=== PATIENT | female | born 1935 ===

== ENCOUNTER 2018-05-13 23:13 | Inpatient (IN) | payer MEDICARE, OTHER ==
[2018-05-13 23:14] VITALS: BMI 23.4
[2018-05-14] MEDS ORDERED: Cefepime 2 GM in Sodium Chloride 0.9% 100 ML IVPB STA (00:01)
[2018-05-14 00:19] LABS: VENOUS BLOOD GAS BASE EXCESS 2.8 mmol/L (0.0-2.0); VENOUS BLOOD GAS PCO2 47 mmHg (40-60); VENOUS BLOOD GAS PO2 34 mm/Hg (30-55); VENOUS BLOOD PH 7.39 (7.32-7.43)
[2018-05-14] MEDS ORDERED: Vancomycin 1 g Inj ONE (00:47)
--- NOTE | 2018-05-14 01:11 | ED PDOC ---
HPI: Altered Mental Status Time Seen by Provider: 05/13/18 23:26 Chief Complaint (Nursing): Altered Mental Status Chief Complaint (Provider): Altered Mental Status History Per: EMS, Other ([facility] Nurses) History/Exam Limitations: Clinical Condition Onset/Duration Of Symptoms: Days (x1) Current Symptoms Are (Timing): Still Present Additional Complaint(s): 83 y/o female with a past medical history of end stage renal disease on dialysis , dementia, hyperlipidemia, HTN, and CVA, presenting to ER from [facility] for evaluation of altered mental status and left arm swelling. Per EMS, the nurses at [facility] report that shes normally not oriented, but is usually more interactive than she was today. They also noticed swelling of the patients left arm and neck swelling. Patient cannot provide any history due to dementia. PMD: Dr. Mejia Past Medical History Reviewed: Historical Data, Nursing Documentation, Vital Signs Vital Signs: Last Vital Signs Temp 100.2 F H 05/13/18 23:17 Pulse 127 H 05/13/18 23:58 Resp 26 H 05/13/18 23:58 BP 132/102 H 05/13/18 23:58 Pulse Ox 93 L 05/13/18 23:58 - Medical History PMH: CAD, Dementia, HTN, Hypercholesterolemia, End Stage Renal Disease, Chronic Kidney Disease, TIA Denies: Kidney Stones - Surgical History Surgical History: Cholecystectomy, Pacemaker - Family History Family History: States: Unknown Family Hx - Home Medications Home Medications: Ambulatory Orders Medication Instructions Recorded Aspirin 81 mg PO DAILY 06/28/14 Cinacalcet Hydrochloride [Sensipar] 60 mg PO DAILY 06/28/14 Omeprazole 20 mg PO DAILY 06/28/14 Pravastatin Sodium [Pravastatin] 40 mg PO HS 06/28/14 Sevelamer Carbonate [Renvela] 800 mg PO TID 06/28/14 amLODIPine [Norvasc] 10 mg PO DAILY #0 tab 01/29/15 Aspirin [Ecotrin] 81 mg PO DAILY #0 tabec 07/22/15 Calcium Acetate [Phoslo] 667 mg PO TIDCC #0 tab 07/22/15 Carvedilol [Coreg] 25 mg PO Q12H #0 tab 07/22/15 Clopidogrel [Plavix] 75 mg PO DAILY #0 tab 07/22/15 Donepezil [Aricept] 5 mg PO HS #0 tab 07/22/15 Famotidine [Pepcid] 20 mg PO DAILY #0 tab 07/22/15 Isosorbide Mononitrate [Imdur] 60 mg PO DAILY #0 tab 07/22/15 Losartan [Cozaar] 100 mg PO DAILY #0 tab 07/22/15 Polyethylene Glycol/Polyvinyl 1 ml OU Q8H PRN #0 bottle 07/22/15 [Artificial Tears] Rosuvastatin Calcium [Crestor] 10 mg PO HS #0 tab 07/22/15 amLODIPine [Norvasc] 10 mg PO DAILY #0 tab 07/22/15 cloNIDine [Catapres] 0.2 mg PO Q8H #0 tab 07/22/15 hydrALAZINE [Apresoline] 50 mg PO Q6H #0 tab 07/22/15 - Allergies Allergies/Adverse Reactions: Allergies Allergy/AdvReac Type Severity Reaction Status Date / Time moxifloxacin Allergy SHORTNESS Verified 05/14/18 00:01 OF BREATH Penicillins Allergy RASH Verified 05/14/18 00:01 Review of Systems Review Of Systems: ROS cannot be obtained secondary to pt's inabilty to answer questions. Skin: Positive for: Other (neck and left arm swelling) Neurological: Positive for: Altered Mental Status Physical Exam - Reviewed Nursing Documentation Reviewed: Yes Vital Signs Reviewed: Yes - Physical Exam Appears: Positive for: No Acute Distress Head Exam: Positive for: ATRAUMATIC, NORMAL INSPECTION, NORMOCEPHALIC Skin: Positive for: Normal Color, Warm, Dry Neck: Negative for: Normal (substantial LAD anteriorly) Cardiovascular/Chest: Positive for: Tachycardia Respiratory: Positive for: Normal Breath Sounds. Negative for: Respiratory Distress Gastrointestinal/Abdominal: Positive for: Normal Exam, Soft. Negative for: Tenderness Back: Positive for: Normal Inspection. Negative for: L CVA Tenderness, R CVA Tenderness, Vertebral Tenderness Extremity: Positive for: Other (6 cm x 4 cm indurated swelling to left arm distal to antecubital fossa, no significant erythema) Neurologic/Psych: Negative for: Alert (patient mumbling incomprehensively), Oriented - Laboratory Results Result Diagrams: 05/14/18 01:12 05/14/18 01:12 - ECG O2 Sat by Pulse Oximetry: 93 - Progress Condition: Re-examined, Worse - Critical Care Total Time (In Min): 60 Documented Critical Care: Time excludes all time spent performint seperately billable procedures Medical Decision Making Medical Decision Making: A/P: 83 y/o female with a history of end stage renal disease on dialysis, dementia, hyperlipidemia, HTN, and CVA presenting with altered mental status and left arm swelling -Patient is febrile and tachycardic, current source unclear -Arm does not appear cellultic, probably not source of infection -Will initiate sepsis workup, however patient cannot receive fluids due to dialysis status and evidence of fluid overload on CXR -Broad spectrum antibiotics will be given -Patient will be admitted to hospitalist as patient is a patient of Dr. Mejia -IV placed by MD in R EJ due to lack of peripheral access 130AM -Patient started developing respiratory distress, spitting frothy sputum, increasingly tachycardic. Patient placed on BIPAP with good response, ativan given for worsening agitation and attempting to pull out IV lines and O2. Lasix held as patient does not urinate as per shelter. 300AM -Patient significantly improved, HR 78, resting comfortably, no respiratory distress seen. Dr. Sahu aware. ----- Scribe Attestation: Documented by Shade Betts, acting as a scribe for Joss Esposito MD. Provider Scribe Attestation: All medical record entries made by the Scribe were at my direction and personally dictated by me. I have reviewed the chart and agree that the record accurately reflects my personal performance of the history, physical exam, medical decision making, and the department course for this patient. I have also personally directed, reviewed, and agree with the discharge instructions and disposition. Disposition - Clinical Impression Clinical Impression: ESRD (end stage renal disease) on dialysis, Fever, Pneumonia, Sepsis - Patient ED Disposition Is Patient to be Admitted: Yes - Disposition Disposition Time: 03:00 Condition: SERIOUS
[2018-05-14 01:33] LABS: BASO % 0.7 % (0.0-2.0); EOS % 0.1 % (0.0-4.0); HEMOGLOBIN 11.2 g/dL (12.0-16.0); LYMPH # 0.7 K/uL (1.0-4.3); LYMPH % 10.9 % (20.0-40.0); MEAN CELL VOLUME 97.1 fl (81.0-99.0); MEAN CORPUSCULAR HEMOGLOBIN 31.3 pg (27.0-31.0); MEAN CORPUSCULAR HGB CONC 32.3 g/dL (33.0-37.0); MONO # 0.7 K/uL (0.0-0.8); MONO % 10.7 % (0.0-10.0); NEUT % 77.6 % (50.0-75.0); NRBC % 0.1 % (0.0-0.0); RBC 3.57 Mil/uL (3.80-5.20); RED CELL DISTRIBUTION WIDTH 18.1 % (11.5-14.5); WHITE BLOOD COUNT 6.5 K/uL (4.8-10.8)
[2018-05-14 01:38] LABS: ALB/GLOB RATIO 1.1 (1.0-2.1); ALBUMIN 3.7 g/dL (3.5-5.0); CALCIUM 8.9 mg/dL (8.4-10.2)
[2018-05-14 01:56] LABS: INR 1.2 (0.9-1.2); PARTIAL THROMBOPLASTIN TIME 31.1 Seconds (25.6-37.1); PROTHROMBIN TIME 12.8 Seconds (9.8-13.1)
[2018-05-14 02:19] LABS: ABG ALLEN TEST YES; ARTERIAL BLOOD GAS HCO3 27.1 mmol/L (21-28); ARTERIAL BLOOD GAS O2 SAT 99.5 % (95-98); ARTERIAL BLOOD GAS PCO2 44 mm/Hg (35-45); ARTERIAL BLOOD GAS PH 7.41 (7.35-7.45); ARTERIAL BLOOD GAS PO2 465 mm/Hg (80-100); ARTERIAL BLOOD GAS TCO2 29.3 mmol/L (22-28)
--- NOTE | 2018-05-14 03:24 | CP.PCM.HP ---
History of Present Illness - History of Present Illness History of Present Illness: PMD: Dr. Mejia Chief Complaint: AMS The Patient was seen and examined in the ED HPI: The hx is obtained from the [facility] notes and after review of the medical records. She is an 83 years old female residing at the [facility] with hx of HTN, CAD, Dementia and ESRD who suffered a one day change in mental status more demented than normal, with poor appetite along with swelling, of the left upper extremity. She also has discharge from the left eye. PMH: CAD, Dementia, HTN, HLD; End Stage Renal Disease on HD MWF; TIA, Falls, hemorrhoides PSH: Cholecystectomy, Pacemaker, AV fistula right forearm SH: Unknown if ever smoked; No illegal drug use; No Alcohol; reside at the [facility] FH: States: Unknown Family Hx Allergies: PCN causes rash; Moxifloxacin causes SOB Medication: Reviewed Present on Admission - Present on Admission Any Indicators Present on Admission: No History of DVT/PE: No History of Uncontrolled Diabetes: No Urinary Catheter: No Decubitus Ulcer Present: No Review of Systems - Review of Systems Systems not reviewed;Unavailable: Dementia, Altered Mental Status Review of Systems: Review of system limited because of the AMS Past Patient History - Past Medical History & Family History Past Medical History?: Yes - Past Social History Smoking Status: Unknown If Ever Smoked Chewing Tobacco Use: No Cigar Use: No Alcohol: None Drugs: Denies Home Situation {Lives}: Long Term - CARDIAC Hx Hypercholesterolemia: Yes Hx Hypertension: Yes Hx Pacemaker: Yes - PULMONARY Hx Respiratory Disorders: No - NEUROLOGICAL Hx Dementia: Yes Hx Transient Ischemic Attacks (TIA): Yes - HEENT Hx HEENT Problems: No - RENAL Hx Chronic Kidney Disease: Yes Hx Kidney Stones: No - ENDOCRINE/METABOLIC Hx Endocrine Disorders: No - HEMATOLOGICAL/ONCOLOGICAL Hx Blood Disorders: No - INTEGUMENTARY Hx Dermatological Problems: No - MUSCULOSKELETAL/RHEUMATOLOGICAL Hx Musculoskeletal Disorders: Yes Hx Falls: Yes Hx Unsteady Gait: Yes - GASTROINTESTINAL Hx Gastrointestinal Disorders: Yes Hx Hemorrhoids: Yes - GENITOURINARY/GYNECOLOGICAL Hx Genitourinary Disorders: No - PSYCHIATRIC Hx Substance Use: No - SURGICAL HISTORY Hx Cholecystectomy: Yes Other/Comment: AV fistula right arm/ PPM - ANESTHESIA Hx Anesthesia: Yes Hx Anesthesia Reactions: No Meds Allergies/Adverse Reactions: Allergies Allergy/AdvReac Type Severity Reaction Status Date / Time moxifloxacin Allergy SHORTNESS Verified 05/14/18 00:01 OF BREATH Penicillins Allergy RASH Verified 05/14/18 00:01 Physical Exam - Constitutional Appears: No Acute Distress, Agitated Additional comments: Resisting the Examination - Head Exam Head Exam: ATRAUMATIC, NORMOCEPHALIC - Eye Exam Additional comments: Left eye with yellow secretions. Pupils equal and reacting to light. - ENT Exam ENT Exam: Mucous Membranes Dry, Normal Exam - Neck Exam Neck exam: Positive for: Full Rom. Negative for: Tenderness - Respiratory Exam Additional comments: Decreased breath sounds at both lung bases, no rales nor rhonchi. - Cardiovascular Exam Cardiovascular Exam: REGULAR RHYTHM, RRR, +S1, +S2 - GI/Abdominal Exam Additional comments: Full, Soft, non tender,+ve bowel sounds - Rectal Exam Rectal Exam: Deferred - Extremities Exam Additional comments: 1+ edema at both lower extremities R>L; Left upper extremity swollen with area at proximal left forearm swollen more than other regions(4X5cm) - Back Exam Back exam: NORMAL INSPECTION. absent: CVA tenderness (L), CVA tenderness (R) - Neurological Exam Additional comments: Demented, No facial droop, moving the upper extremities. - Psychiatric Exam Additional comments: Initially mild agitation andat this exam she is lightly sedated with Ativan. - Skin Skin Exam: Dry, Normal Color, Warm Results - Vital Signs Recent Vital Signs: Last Vital Signs Temp 100.2 F H 05/13/18 23:17 Pulse 130 H 05/14/18 01:45 Resp 14 05/14/18 01:41 BP 142/94 H 05/14/18 01:41 Pulse Ox 93 L 05/14/18 02:30 - Labs Result Diagrams: 05/14/18 01:12 05/14/18 01:12 Labs: Laboratory Results - last 24 hr 05/14/18 05/14/18 05/14/18 00:14 01:12 01:12 WBC 6.5 RBC 3.57 L Hgb 11.2 L Hct 34.7 MCV 97.1 MCH 31.3 H MCHC 32.3 L RDW 18.1 H Plt Count 172 MPV 9.0 Neut % (Auto) 77.6 H Lymph % (Auto) 10.9 L Taney % (Auto) 10.7 H Eos % (Auto) 0.1 Baso % (Auto) 0.7 Neut # (Auto) 5.0 Lymph # (Auto) 0.7 L Taney # (Auto) 0.7 Eos # (Auto) 0.0 Baso # (Auto) 0.0 PT INR APTT pCO2 pO2 34 HCO3 ABG pH ABG Total CO2 ABG O2 Saturation ABG Base Excess Willie Test ABG Potassium VBG pH 7.39 VBG pCO2 47 VBG HCO3 26.2 VBG Total CO2 29.9 H VBG O2 Sat (Calc) 65.9 H VBG Base Excess 2.8 H VBG Potassium 3.6 A-a O2 Difference Sodium 133.0 132 Chloride 98.0 93 L Glucose 131 H Lactate 0.9 Mechanical Rate FiO2 21.0 Inspiratory BiPAP Expiratory BiPAP Potassium 4.4 Carbon Dioxide 24 Anion Gap 19 BUN 40 H Creatinine 5.4 H Est GFR ( Amer) 9 Est GFR (Non-Af Amer) 8 Random Glucose 122 H Calcium 8.9 Phosphorus 2.4 L Magnesium 2.3 Total Bilirubin 0.9 AST 45 H ALT 32 Alkaline Phosphatase 153 H Total Protein 6.9 Albumin 3.7 Globulin 3.3 Albumin/Globulin Ratio 1.1 Arterial Blood Potassium Venous Blood Potassium 3.6 05/14/18 05/14/18 01:12 02:15 WBC RBC Hgb Hct MCV MCH MCHC RDW Plt Count MPV Neut % (Auto) Lymph % (Auto) Taney % (Auto) Eos % (Auto) Baso % (Auto) Neut # (Auto) Lymph # (Auto) Taney # (Auto) Eos # (Auto) Baso # (Auto) PT 12.8 INR 1.2 APTT 31.1 pCO2 44 pO2 465 H HCO3 27.1 ABG pH 7.41 ABG Total CO2 29.3 H ABG O2 Saturation 99.5 H ABG Base Excess 2.7 Willie Test Yes ABG Potassium 3.7 VBG pH VBG pCO2 VBG HCO3 VBG Total CO2 VBG O2 Sat (Calc) VBG Base Excess VBG Potassium A-a O2 Difference 193.0 Sodium 129.0 L Chloride 96.0 L Glucose 133 H Lactate 0.7 Mechanical Rate 14 FiO2 100.0 Inspiratory BiPAP 12 Expiratory BiPAP 6 Potassium Carbon Dioxide Anion Gap BUN Creatinine Est GFR ( Amer) Est GFR (Non-Af Amer) Random Glucose Calcium Phosphorus Magnesium Total Bilirubin AST ALT Alkaline Phosphatase Total Protein Albumin Globulin Albumin/Globulin Ratio Arterial Blood Potassium 3.7 Venous Blood Potassium - Impressions Impression: Low voltage A Fib with RBBB 96/min - Imaging and Cardiology Chest x-ray Status: Image reviewed by me Additional comment: Bibasal Pleural effusion R>L Right basal interstitial infiltrate Assessment & Plan - Assessment and Plan (Free Text) Assessment: #. AMS #. Bilateral Pleural Effusion #. Pnum[place] #. Left upper extremity swelling #. Anasarca #. ESRD On HD #. A Fib Plan: 83 years old female residing at the [facility] with hx of HTN, CAD, Dementia and ESRD who suffered a one day change in mental status more demented than normal, with poor appetite along with swelling, of the left upper extremity. She also has discharge from the left eye. #. AMS due to Metabolic encephalopathy - Hemodialysis - Treat infections - Consult Dr Workman ID #. Bilateral Pleural Effusion secondary to volume overload - Hemodialysis - Consider Right Thoracentesis if Decompensation #. r/o Pneumonia at the right lung base - consult Dr Cordero Pulmonary - Procalcitonin - Vancomycin/Cefepime #. Left upper extremity swelling - Duplex US of left upper extremity #. Anasarca due to the renal failure - Hemodialysis #. ESRD On HD - consult Dr Palma [employer] for Hemodialysis #. A Fib with RVR - Consult Dr Delgado cardiology - Cardiac monitoring #. DVT with subQ heparin #. Code Status: Full - Date & Time Date: 05/14/18 Time: 03:24
[2018-05-14 05:46] LABS: VENOUS BLOOD GAS BASE EXCESS 3.7 mmol/L (0.0-2.0); VENOUS BLOOD GAS PCO2 49 mmHg (40-60); VENOUS BLOOD GAS PO2 46 mm/Hg (30-55); VENOUS BLOOD PH 7.39 (7.32-7.43)
[2018-05-14] MEDS ORDERED: Artificial Tears Opht Soln OU PRN (06:05)
[2018-05-14 07:09] LABS: BASO % 0.7 % (0.0-2.0); EOS % 0.4 % (0.0-4.0); LYMPH # 0.8 K/uL (1.0-4.3); LYMPH % 18.4 % (20.0-40.0); MEAN CELL VOLUME 97.8 fl (81.0-99.0); MEAN CORPUSCULAR HEMOGLOBIN 31.2 pg (27.0-31.0); MEAN CORPUSCULAR HGB CONC 31.9 g/dL (33.0-37.0); MEAN PLATELET VOLUME 8.4 fl (7.2-11.7); MONO # 0.6 K/uL (0.0-0.8); MONO % 13.5 % (0.0-10.0); NEUT # 2.9 K/uL (1.8-7.0); RBC 3.53 Mil/uL (3.80-5.20); RED CELL DISTRIBUTION WIDTH 17.8 % (11.5-14.5); WHITE BLOOD COUNT 4.3 K/uL (4.8-10.8)
[2018-05-14] MEDS ORDERED: Dextrose 5%/0.9% NS 1,000 ML IV SCH (07:15)
[2018-05-14 07:24] LABS: TROPONIN I 0.025 ng/mL (0.00-0.120)
[2018-05-14 07:28] LABS: ALBUMIN 2.8 g/dL (3.5-5.0); CALCIUM 8.4 mg/dL (8.4-10.2)
--- NOTE | 2018-05-14 09:19 | CP.PCM.CON ---
History of Present Illness - History of Present Illness History of Present Illness: This 83-year-old female a long-term resident of a detention was brought to the emergency room when she was found to be more confused than usual. She has a long history of dementia. She has been on chronic hemodialysis for approximately 9 years. She is a long- standing hypertensive and does not have a history of diabetes mellitus or prior myocardial infarction. She is not a smoker and has had number of transient ischemic episodes. She has required a permanent pacemaker implant more than 4 years back. This history was obtained from her son. Physical examination shows an elderly female who is quite disoriented and does not appear to be aware of her surroundings. She is quite restless and is being treated with a BiPAP mask. Her cardiac care unit nurse shows atrial fibrillation at 80 bpm. Her blood pressure was 136/80 mmHg. Her jugular venous pressure was not elevated. There was minimal pitting edema over both lower extremities. The pedal pulses were extremely feeble. The extremities were warm and nailbeds were pink. There was no central or peripheral cyanosis. A dialysis shunt was evident in the right upper arm. The BiPAP mask her pulse oximetry was 98%. The apex was not palpable. The first and second heart sounds were normal. There was no murmur or gallop. There were no rales. Abdomen was soft and liver and spleen are not palpable. Her electrocardiogram showed atrial fibrillation with a pattern of right bundle branch block. Her earlier cardiograms dating back to last year as well as earlier cardiograms showed sinus rhythm with a right bundle branch block. No Q waves were seen. An echocardiogram done today shows a preserved left ventricular systolic function with sclerotic aortic leaflets. No significant gradient was seen at the aortic valve. The right ventricle appeared enlarged pulmonary artery systolic pressure was in the range of 30-[address] of the chest was done its result is still elevated. Her lab tests showed a BUN/creatinine of 41 and 5.7 mg percent respectively her serum potassium was 4.1 mg/L. Serum albumen was 2.8 g. Her proBNP was markedly elevated at 46,100 pg per mL troponin level was normal. Impression: Rule out pulmonary embolism in a markedly demented female on chronic hemodialysis with newly documented atrial fibrillation. The echocardiogram shows evidence of right ventricular enlargement but the pulmonary artery systolic pressure does not appear to be significantly elevated. The patient has had a CT of the chest I will discuss the findings with the radiologist. The patient may possibly need a CT angiogram of the chest. In the meantime she should be anticoagulated with heparin given her renal status. Past Patient History - Past Medical History & Family History Past Medical History?: Yes - Past Social History Smoking Status: Unknown If Ever Smoked Chewing Tobacco Use: No Cigar Use: No Alcohol: None Drugs: Denies Home Situation {Lives}: Long-Term - CARDIAC Hx Hypercholesterolemia: Yes Hx Hypertension: Yes Hx Pacemaker: Yes - PULMONARY Hx Respiratory Disorders: No - NEUROLOGICAL Hx Dementia: Yes Hx Transient Ischemic Attacks (TIA): Yes - HEENT Hx HEENT Problems: No - RENAL Hx Chronic Kidney Disease: Yes Hx Kidney Stones: No - ENDOCRINE/METABOLIC Hx Endocrine Disorders: No - HEMATOLOGICAL/ONCOLOGICAL Hx Blood Disorders: No - INTEGUMENTARY Hx Dermatological Problems: No - MUSCULOSKELETAL/RHEUMATOLOGICAL Hx Musculoskeletal Disorders: Yes Hx Falls: Yes Hx Unsteady Gait: Yes - GASTROINTESTINAL Hx Gastrointestinal Disorders: Yes Hx Hemorrhoids: Yes - GENITOURINARY/GYNECOLOGICAL Hx Genitourinary Disorders: No - PSYCHIATRIC Hx Substance Use: No - SURGICAL HISTORY Hx Cholecystectomy: Yes - ANESTHESIA Hx Anesthesia: Yes Hx Anesthesia Reactions: No Meds Allergies/Adverse Reactions: Allergies Allergy/AdvReac Type Severity Reaction Status Date / Time moxifloxacin Allergy SHORTNESS Verified 05/14/18 00:01 OF BREATH Penicillins Allergy RASH Verified 05/14/18 00:01 - Medications Medications: Current Medications Acetaminophen (Tylenol 325 Mg Supp) 975 mg HI ONCE PRN PRN Reason: Fever >100.4 F Artificial Tears (Artificial Tears) 1 drop OU Q8H PRN PRN Reason: Dry eyes Atorvastatin Calcium (Lipitor) 20 mg PO HS KRIS Heparin Sodium (Porcine) (Heparin) 5,000 units SC Q8 KRIS PRN Reason: Protocol Hydralazine HCl (Apresoline) 50 mg PO Q6H [facility] Last Admin: 05/14/18 06:25 Dose: Not Given Vancomycin HCl 1 gm/ Sodium (Chloride) 250 mls @ 125 mls/hr IVPB MWF KRIS PRN Reason: Protocol Cefepime HCl 1 gm/ Sodium (Chloride) 100 mls @ 100 mls/hr IVPB DAILY KRIS PRN Reason: Protocol Dextrose/Sodium Chloride (Dextrose 5%/0.9% Ns 1000 Ml) 1,000 mls @ 42 mls/hr IV .[id number] KRIS Stop: 05/15/18 07:05 Isosorbide Mononitrate (Imdur) 60 mg PO DAILY KRIS Losartan Potassium (Cozaar) 100 mg PO DAILY [facility] Neomycin/Polymyxin/Bacitracin (Bacitracin/Neomycin/Polymyxin Opht Oint) 1 applic OS Q4 [facility] Pantoprazole Sodium (Protonix Ec Tab) 20 mg PO DAILY [facility] Sevelamer HCl (Renagel) 800 mg PO TID [facility] Results - Vital Signs Recent Vital Signs: Last Vital Signs Temp 97.2 F L 05/14/18 08:01 Pulse 112 H 05/14/18 08:01 Resp 21 05/14/18 08:01 BP 167/109 H 05/14/18 08:01 Pulse Ox 100 05/14/18 08:01 - Labs Result Diagrams: 05/14/18 06:45 05/14/18 06:45 Labs: Laboratory Results - last 24 hr 05/14/18 05/14/18 05/14/18 00:14 01:12 01:12 WBC 6.5 RBC 3.57 L Hgb 11.2 L Hct 34.7 MCV 97.1 MCH 31.3 H MCHC 32.3 L RDW 18.1 H Plt Count 172 MPV 9.0 Neut % (Auto) 77.6 H Lymph % (Auto) 10.9 L Valencia % (Auto) 10.7 H Eos % (Auto) 0.1 Baso % (Auto) 0.7 Neut # (Auto) 5.0 Lymph # (Auto) 0.7 L Valencia # (Auto) 0.7 Eos # (Auto) 0.0 Baso # (Auto) 0.0 PT INR APTT pCO2 pO2 34 HCO3 ABG pH ABG Total CO2 ABG O2 Saturation ABG Base Excess Willie Test ABG Potassium VBG pH 7.39 VBG pCO2 47 VBG HCO3 26.2 VBG Total CO2 29.9 H VBG O2 Sat (Calc) 65.9 H VBG Base Excess 2.8 H VBG Potassium 3.6 A-a O2 Difference Sodium 133.0 132 Chloride 98.0 93 L Glucose 131 H Lactate 0.9 Mechanical Rate FiO2 21.0 Inspiratory BiPAP Expiratory BiPAP Potassium 4.4 Carbon Dioxide 24 Anion Gap 19 BUN 40 H Creatinine 5.4 H Est GFR ( Amer) 9 Est GFR (Non-Af Amer) 8 Random Glucose 122 H Calcium 8.9 Phosphorus 2.4 L Magnesium 2.3 Total Bilirubin 0.9 AST 45 H ALT 32 Alkaline Phosphatase 153 H Troponin I NT-Pro-B Natriuret Pep Total Protein 6.9 Albumin 3.7 Globulin 3.3 Albumin/Globulin Ratio 1.1 Arterial Blood Potassium Venous Blood Potassium 3.6 05/14/18 05/14/18 05/14/18 01:12 02:15 05:42 WBC RBC Hgb Hct MCV MCH MCHC RDW Plt Count MPV Neut % (Auto) Lymph % (Auto) Valencia % (Auto) Eos % (Auto) Baso % (Auto) Neut # (Auto) Lymph # (Auto) Valencia # (Auto) Eos # (Auto) Baso # (Auto) PT 12.8 INR 1.2 APTT 31.1 pCO2 44 pO2 465 H 46 HCO3 27.1 ABG pH 7.41 ABG Total CO2 29.3 H ABG O2 Saturation 99.5 H ABG Base Excess 2.7 Willie Test Yes ABG Potassium 3.7 VBG pH 7.39 VBG pCO2 49 VBG HCO3 27.4 VBG Total CO2 31.2 H VBG O2 Sat (Calc) 84.3 H VBG Base Excess 3.7 H VBG Potassium 4.4 A-a O2 Difference 193.0 Sodium 129.0 L 133.0 Chloride 96.0 L 98.0 Glucose 133 H 131 H Lactate 0.7 0.8 Mechanical Rate 14 FiO2 100.0 60.0 Inspiratory BiPAP 12 Expiratory BiPAP 6 6 Potassium Carbon Dioxide Anion Gap BUN Creatinine Est GFR ( Amer) Est GFR (Non-Af Amer) Random Glucose Calcium Phosphorus Magnesium Total Bilirubin AST ALT Alkaline Phosphatase Troponin I NT-Pro-B Natriuret Pep Total Protein Albumin Globulin Albumin/Globulin Ratio Arterial Blood Potassium 3.7 Venous Blood Potassium 4.4 05/14/18 05/14/18 06:45 06:45 WBC 4.3 L RBC 3.53 L Hgb 11.0 L Hct 34.5 MCV 97.8 MCH 31.2 H MCHC 31.9 L RDW 17.8 H Plt Count 121 L D MPV 8.4 Neut % (Auto) 67.0 Lymph % (Auto) 18.4 L Valencia % (Auto) 13.5 H Eos % (Auto) 0.4 Baso % (Auto) 0.7 Neut # (Auto) 2.9 Lymph # (Auto) 0.8 L Valencia # (Auto) 0.6 Eos # (Auto) 0.0 Baso # (Auto) 0.0 PT INR APTT pCO2 pO2 HCO3 ABG pH ABG Total CO2 ABG O2 Saturation ABG Base Excess Willie Test ABG Potassium VBG pH VBG pCO2 VBG HCO3 VBG Total CO2 VBG O2 Sat (Calc) VBG Base Excess VBG Potassium A-a O2 Difference Sodium 133 Chloride 96 L Glucose Lactate Mechanical Rate FiO2 Inspiratory BiPAP Expiratory BiPAP Potassium 4.1 Carbon Dioxide 26 Anion Gap 15 BUN 41 H Creatinine 5.7 H Est GFR ( Amer) 9 Est GFR (Non-Af Amer) 7 Random Glucose 117 H Calcium 8.4 Phosphorus Magnesium Total Bilirubin 0.6 AST 27 ALT 29 Alkaline Phosphatase 125 Troponin I 0.0250 NT-Pro-B Natriuret Pep 88833 H Total Protein 5.7 L Albumin 2.8 L D Globulin 2.9 Albumin/Globulin Ratio 1.0 Arterial Blood Potassium Venous Blood Potassium
--- NOTE | 2018-05-14 09:41 | CT ---
Date of service: 05/14/2018 PROCEDURE: CT HEAD WITHOUT CONTRAST. HISTORY: Altered Mental Status COMPARISON: CT scan brain dated 01/27/2015. TECHNIQUE: Axial computed tomography images were obtained through the head/brain without intravenous contrast. Radiation dose: Total exam DLP = 870.15 mGy-cm. This CT exam was performed using one or more of the following dose reduction techniques: Automated exposure control, adjustment of the mA and/or kV according to patient size, and/or use of iterative reconstruction technique. FINDINGS: HEMORRHAGE: No acute parenchymal, subarachnoid or extra-axial hemorrhage. . 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 In addition, moderate to significant diffuse/confluent chronic white matter ischemic changes seen extending peripherally into the deep and subcortical white matter both cerebral hemispheres. Moderate to significant generalized volume loss. Dense vascular calcifications both carotid siphons VENTRICLES: No obstructive hydrocephalus. CALVARIUM: Calvarium intact Vascular calcifications within the scalp again noted suggesting underlying IDDM. Clinical correlation with history recommended. PARANASAL SINUSES: Unremarkable as visualized. No significant inflammatory changes. MASTOID AIR CELLS: Unremarkable as visualized. No inflammatory changes. OTHER FINDINGS: Changes of bilateral cataract surgery. IMPRESSION: Normal CT of the Head.
[2018-05-14] MEDS ORDERED: Lactulose 10 gm/15 ml Syrup PO PRN (09:46)
--- NOTE | 2018-05-14 09:48 | RAD ---
Date of service: 05/14/2018 HISTORY: Sepsis Patient COMPARISON: No prior. FINDINGS: LUNGS: Bilateral lower lobe and/or infiltrates with bilateral effusions. PLEURA: No significant pleural effusion identified, no pneumothorax apparent. CARDIOVASCULAR: Cardiomegaly. Bipolar pacemaker/defibrillator. OSSEOUS STRUCTURES: DJD both shoulders right greater than left. . Metallic clips seen in the right axilla.. VISUALIZED UPPER ABDOMEN: Normal. OTHER FINDINGS: There is any elliptical shaped peripherally (ease eggshell like calcification) lesion in the right parasagittal base of neck most consistent with a calcified thyroid nodule that measures approximately 3.65 x 2.9 cm. Note made of what appears represent a small Angiocath overlying the right lateral lower neck. Clinical correlation recommended IMPRESSION: Bilateral lower lobe atelectasis and infiltrates and bilateral effusions. Cardiomegaly There is any elliptical shaped peripherally (ease eggshell like calcification) lesion in the right parasagittal base of neck most consistent with a calcified thyroid nodule that measures approximately 3.65 x 2.9 cm. Note made of what appears represent a small Angiocath overlying the right lateral lower neck. Clinical correlation recommended
--- NOTE | 2018-05-14 10:17 | CP.PCM.CON ---
History of Present Illness - History of Present Illness History of Present Illness: Infectious Disease Consultation Note- Asked to see this patient for left arm cellulitis, rule out sepsis. HPI- History obtained from medical chart and the ICU nurse as pt. does no answer any of my questions adn only repsonds to painful stimuli. Patient is a 83 year old female with PMH of ESRD on HD for past 9 years , HTN, Dementia, CAD , NH resident who was noted to have AMS , more dementia than her usual and hence was sent to Ed to be further evaluated and treated. She was also noted to have Left arm swelling PMH: CAD, Dementia, HTN, HLD; End Stage Renal Disease on HD MWF; TIA, Falls, hemorrhoides PSH: Cholecystectomy, Pacemaker, AV fistula right forearm SH: Unknown if ever smoked; No illegal drug use; No Alcohol; reside at the [facility] FH: States: Unknown Family Hx Allergies: PCN causes rash; Moxifloxacin causes SOB Medication: Reviewed Review of Systems - Review of Systems Review of Systems: ROS- Unable to obtain as pt. lethargic and does not answer any of my questions, only responds to painful stimuli Past Patient History - Past Medical History & Family History Past Medical History?: Yes - Past Social History Smoking Status: Unknown If Ever Smoked Chewing Tobacco Use: No Cigar Use: No Alcohol: None Drugs: Denies Home Situation {Lives}: Senior Living - CARDIAC Hx Hypercholesterolemia: Yes Hx Hypertension: Yes Hx Pacemaker: Yes - PULMONARY Hx Respiratory Disorders: No - NEUROLOGICAL Hx Dementia: Yes Hx Transient Ischemic Attacks (TIA): Yes - HEENT Hx HEENT Problems: No - RENAL Hx Chronic Kidney Disease: Yes Hx Kidney Stones: No - ENDOCRINE/METABOLIC Hx Endocrine Disorders: No - HEMATOLOGICAL/ONCOLOGICAL Hx Blood Disorders: No - INTEGUMENTARY Hx Dermatological Problems: No - MUSCULOSKELETAL/RHEUMATOLOGICAL Hx Musculoskeletal Disorders: Yes Hx Falls: Yes Hx Unsteady Gait: Yes - GASTROINTESTINAL Hx Gastrointestinal Disorders: Yes Hx Hemorrhoids: Yes - GENITOURINARY/GYNECOLOGICAL Hx Genitourinary Disorders: No - PSYCHIATRIC Hx Substance Use: No - SURGICAL HISTORY Hx Cholecystectomy: Yes - ANESTHESIA Hx Anesthesia: Yes Hx Anesthesia Reactions: No Meds Allergies/Adverse Reactions: Allergies Allergy/AdvReac Type Severity Reaction Status Date / Time moxifloxacin Allergy SHORTNESS Verified 05/14/18 00:01 OF BREATH Penicillins Allergy RASH Verified 05/14/18 00:01 - Medications Medications: Current Medications Acetaminophen (Tylenol 325 Mg Supp) 975 mg LA ONCE PRN PRN Reason: Fever >100.4 F Acetaminophen (Tylenol 325mg Tab) 650 mg PO PRN PRN PRN Reason: Pain, Mild (1-3) Artificial Tears (Artificial Tears) 1 drop OU Q8H PRN PRN Reason: Dry eyes Atorvastatin Calcium (Lipitor) 20 mg PO HS [facility] Calcium/Vitamin D (Oyster Shell Calcium/Vitamin D 500 Mg-200 Iu) 1 tab PO BID [facility] Clonidine HCl (Catapres) 0.2 mg PO Q8H [facility] Clopidogrel Bisulfate (Plavix) 75 mg PO DAILY [facility] Cyproheptadine HCl (Periactin) 4 mg PO BID [facility] Famotidine (Pepcid) 20 mg PO BID [facility] Guaifenesin/Dextromethorphan (Robitussin Dm) 5 ml PO QID PRN PRN Reason: Cough and congestion Heparin Sodium (Porcine) (Heparin) 5,000 units SC Q8 [facility] PRN Reason: Protocol Home Med (Lactulose) 10 gm PO PRN PRN PRN Reason: Constipation Home Med (Pravastatin Sodium [Pravastatin]) 40 mg PO HS [facility] Hydralazine HCl (Apresoline) 50 mg PO Q6H [facility] Last Admin: 05/14/18 06:25 Dose: Not Given Vancomycin HCl 1 gm/ Sodium (Chloride) 250 mls @ 125 mls/hr IVPB MWF [facility] PRN Reason: Protocol Cefepime HCl 1 gm/ Sodium (Chloride) 100 mls @ 100 mls/hr IVPB DAILY [facility] PRN Reason: Protocol Dextrose/Sodium Chloride (Dextrose 5%/0.9% Ns 1000 Ml) 1,000 mls @ 42 mls/hr IV .[id number] [facility] Stop: 05/15/18 07:05 Isosorbide Mononitrate (Imdur) 60 mg PO DAILY [facility] Isosorbide Mononitrate (Imdur Er) 60 mg PO DAILY [facility] Losartan Potassium (Cozaar) 100 mg PO DAILY [facility] Neomycin/Polymyxin/Bacitracin (Bacitracin/Neomycin/Polymyxin Opht Oint) 1 applic OS Q4 [facility] Pantoprazole Sodium (Protonix Ec Tab) 20 mg PO DAILY [facility] Sevelamer HCl (Renagel) 800 mg PO TID [facility] Tobramycin/Dexamethasone (Tobradex 0.3%-0.1% Opht Oint) appl OU TID KRIS Physical Exam - Constitutional Appears: Confused, Chronically Ill Additional comments: lethargic - Head Exam Head Exam: ATRAUMATIC - Neck Exam Neck exam: Positive for: Full Rom Additional comments: supple - Respiratory Exam Additional comments: slight tachypnea crackles at left base no wheezing - Cardiovascular Exam Cardiovascular Exam: Tachycardia, +S1, +S2 - GI/Abdominal Exam GI & Abdominal Exam: Normal Bowel Sounds, Soft Additional comments: NT, Nd - Extremities Exam Additional comments: right arm AVF left arm edematous, mildly erythemtous and very taught skin no wound, no discharge warm to touch - Neurological Exam Neurological exam: Altered Results - Vital Signs Recent Vital Signs: Last Vital Signs Temp 97.2 F L 05/14/18 08:01 Pulse 112 H 05/14/18 08:01 Resp 21 05/14/18 08:01 BP 167/109 H 05/14/18 08:01 Pulse Ox 100 05/14/18 08:01 - Labs Result Diagrams: 05/14/18 06:45 05/14/18 06:45 Labs: Laboratory Results - last 24 hr 05/14/18 05/14/18 05/14/18 00:14 01:12 01:12 WBC 6.5 RBC 3.57 L Hgb 11.2 L Hct 34.7 MCV 97.1 MCH 31.3 H MCHC 32.3 L RDW 18.1 H Plt Count 172 MPV 9.0 Neut % (Auto) 77.6 H Lymph % (Auto) 10.9 L [place] % (Auto) 10.7 H Eos % (Auto) 0.1 Baso % (Auto) 0.7 Neut # (Auto) 5.0 Lymph # (Auto) 0.7 L [place] # (Auto) 0.7 Eos # (Auto) 0.0 Baso # (Auto) 0.0 PT INR APTT pCO2 pO2 34 HCO3 ABG pH ABG Total CO2 ABG O2 Saturation ABG Base Excess Willie Test ABG Potassium VBG pH 7.39 VBG pCO2 47 VBG HCO3 26.2 VBG Total CO2 29.9 H VBG O2 Sat (Calc) 65.9 H VBG Base Excess 2.8 H VBG Potassium 3.6 A-a O2 Difference Sodium 133.0 132 Chloride 98.0 93 L Glucose 131 H Lactate 0.9 Mechanical Rate FiO2 21.0 Inspiratory BiPAP Expiratory BiPAP Potassium 4.4 Carbon Dioxide 24 Anion Gap 19 BUN 40 H Creatinine 5.4 H Est GFR ( Amer) 9 Est GFR (Non-Af Amer) 8 Random Glucose 122 H Calcium 8.9 Phosphorus 2.4 L Magnesium 2.3 Total Bilirubin 0.9 AST 45 H ALT 32 Alkaline Phosphatase 153 H Troponin I NT-Pro-B Natriuret Pep Total Protein 6.9 Albumin 3.7 Globulin 3.3 Albumin/Globulin Ratio 1.1 Arterial Blood Potassium Venous Blood Potassium 3.6 05/14/18 05/14/18 05/14/18 01:12 02:15 05:42 WBC RBC Hgb Hct MCV MCH MCHC RDW Plt Count MPV Neut % (Auto) Lymph % (Auto) [place] % (Auto) Eos % (Auto) Baso % (Auto) Neut # (Auto) Lymph # (Auto) [place] # (Auto) Eos # (Auto) Baso # (Auto) PT 12.8 INR 1.2 APTT 31.1 pCO2 44 pO2 465 H 46 HCO3 27.1 ABG pH 7.41 ABG Total CO2 29.3 H ABG O2 Saturation 99.5 H ABG Base Excess 2.7 Willie Test Yes ABG Potassium 3.7 VBG pH 7.39 VBG pCO2 49 VBG HCO3 27.4 VBG Total CO2 31.2 H VBG O2 Sat (Calc) 84.3 H VBG Base Excess 3.7 H VBG Potassium 4.4 A-a O2 Difference 193.0 Sodium 129.0 L 133.0 Chloride 96.0 L 98.0 Glucose 133 H 131 H Lactate 0.7 0.8 Mechanical Rate 14 FiO2 100.0 60.0 Inspiratory BiPAP 12 Expiratory BiPAP 6 6 Potassium Carbon Dioxide Anion Gap BUN Creatinine Est GFR ( Amer) Est GFR (Non-Af Amer) Random Glucose Calcium Phosphorus Magnesium Total Bilirubin AST ALT Alkaline Phosphatase Troponin I NT-Pro-B Natriuret Pep Total Protein Albumin Globulin Albumin/Globulin Ratio Arterial Blood Potassium 3.7 Venous Blood Potassium 4.4 05/14/18 05/14/18 06:45 06:45 WBC 4.3 L RBC 3.53 L Hgb 11.0 L Hct 34.5 MCV 97.8 MCH 31.2 H MCHC 31.9 L RDW 17.8 H Plt Count 121 L D MPV 8.4 Neut % (Auto) 67.0 Lymph % (Auto) 18.4 L [place] % (Auto) 13.5 H Eos % (Auto) 0.4 Baso % (Auto) 0.7 Neut # (Auto) 2.9 Lymph # (Auto) 0.8 L [place] # (Auto) 0.6 Eos # (Auto) 0.0 Baso # (Auto) 0.0 PT INR APTT pCO2 pO2 HCO3 ABG pH ABG Total CO2 ABG O2 Saturation ABG Base Excess Willie Test ABG Potassium VBG pH VBG pCO2 VBG HCO3 VBG Total CO2 VBG O2 Sat (Calc) VBG Base Excess VBG Potassium A-a O2 Difference Sodium 133 Chloride 96 L Glucose Lactate Mechanical Rate FiO2 Inspiratory BiPAP Expiratory BiPAP Potassium 4.1 Carbon Dioxide 26 Anion Gap 15 BUN 41 H Creatinine 5.7 H Est GFR ( Amer) 9 Est GFR (Non-Af Amer) 7 Random Glucose 117 H Calcium 8.4 Phosphorus Magnesium Total Bilirubin 0.6 AST 27 ALT 29 Alkaline Phosphatase 125 Troponin I 0.0250 NT-Pro-B Natriuret Pep 95592 H Total Protein 5.7 L Albumin 2.8 L D Globulin 2.9 Albumin/Globulin Ratio 1.0 Arterial Blood Potassium Venous Blood Potassium Laboratory Results - last 72 hr 05/14/18 05/14/18 05/14/18 00:14 01:12 01:12 WBC 6.5 RBC 3.57 L Hgb 11.2 L Hct 34.7 MCV 97.1 MCH 31.3 H MCHC 32.3 L RDW 18.1 H Plt Count 172 MPV 9.0 Neut % (Auto) 77.6 H Lymph % (Auto) 10.9 L [place] % (Auto) 10.7 H Eos % (Auto) 0.1 Baso % (Auto) 0.7 Neut # (Auto) 5.0 Lymph # (Auto) 0.7 L [place] # (Auto) 0.7 Eos # (Auto) 0.0 Baso # (Auto) 0.0 PT INR APTT pCO2 pO2 34 HCO3 ABG pH ABG Total CO2 ABG O2 Saturation ABG Base Excess Willie Test ABG Potassium VBG pH 7.39 VBG pCO2 47 VBG HCO3 26.2 VBG Total CO2 29.9 H VBG O2 Sat (Calc) 65.9 H VBG Base Excess 2.8 H VBG Potassium 3.6 A-a O2 Difference Sodium 133.0 132 Chloride 98.0 93 L Glucose 131 H Lactate 0.9 Mechanical Rate FiO2 21.0 Inspiratory BiPAP Expiratory BiPAP Potassium 4.4 Carbon Dioxide 24 Anion Gap 19 BUN 40 H Creatinine 5.4 H Est GFR ( Amer) 9 Est GFR (Non-Af Amer) 8 Random Glucose 122 H Calcium 8.9 Phosphorus 2.4 L Magnesium 2.3 Total Bilirubin 0.9 AST 45 H ALT 32 Alkaline Phosphatase 153 H Troponin I NT-Pro-B Natriuret Pep Total Protein 6.9 Albumin 3.7 Globulin 3.3 Albumin/Globulin Ratio 1.1 Arterial Blood Potassium Venous Blood Potassium 3.6 05/14/18 05/14/18 05/14/18 01:12 02:15 05:42 WBC RBC Hgb Hct MCV MCH MCHC RDW Plt Count MPV Neut % (Auto) Lymph % (Auto) [place] % (Auto) Eos % (Auto) Baso % (Auto) Neut # (Auto) Lymph # (Auto) [place] # (Auto) Eos # (Auto) Baso # (Auto) PT 12.8 INR 1.2 APTT 31.1 pCO2 44 pO2 465 H 46 HCO3 27.1 ABG pH 7.41 ABG Total CO2 29.3 H ABG O2 Saturation 99.5 H ABG Base Excess 2.7 Willie Test Yes ABG Potassium 3.7 VBG pH 7.39 VBG pCO2 49 VBG HCO3 27.4 VBG Total CO2 31.2 H VBG O2 Sat (Calc) 84.3 H VBG Base Excess 3.7 H VBG Potassium 4.4 A-a O2 Difference 193.0 Sodium 129.0 L 133.0 Chloride 96.0 L 98.0 Glucose 133 H 131 H Lactate 0.7 0.8 Mechanical Rate 14 FiO2 100.0 60.0 Inspiratory BiPAP 12 Expiratory BiPAP 6 6 Potassium Carbon Dioxide Anion Gap BUN Creatinine Est GFR ( Amer) Est GFR (Non-Af Amer) Random Glucose Calcium Phosphorus Magnesium Total Bilirubin AST ALT Alkaline Phosphatase Troponin I NT-Pro-B Natriuret Pep Total Protein Albumin Globulin Albumin/Globulin Ratio Arterial Blood Potassium 3.7 Venous Blood Potassium 4.4 05/14/18 05/14/18 06:45 06:45 WBC 4.3 L RBC 3.53 L Hgb 11.0 L Hct 34.5 MCV 97.8 MCH 31.2 H MCHC 31.9 L RDW 17.8 H Plt Count 121 L D MPV 8.4 Neut % (Auto) 67.0 Lymph % (Auto) 18.4 L [place] % (Auto) 13.5 H Eos % (Auto) 0.4 Baso % (Auto) 0.7 Neut # (Auto) 2.9 Lymph # (Auto) 0.8 L [place] # (Auto) 0.6 Eos # (Auto) 0.0 Baso # (Auto) 0.0 PT INR APTT pCO2 pO2 HCO3 ABG pH ABG Total CO2 ABG O2 Saturation ABG Base Excess Willie Test ABG Potassium VBG pH VBG pCO2 VBG HCO3 VBG Total CO2 VBG O2 Sat (Calc) VBG Base Excess VBG Potassium A-a O2 Difference Sodium 133 Chloride 96 L Glucose Lactate Mechanical Rate FiO2 Inspiratory BiPAP Expiratory BiPAP Potassium 4.1 Carbon Dioxide 26 Anion Gap 15 BUN 41 H Creatinine 5.7 H Est GFR ( Amer) 9 Est GFR (Non-Af Amer) 7 Random Glucose 117 H Calcium 8.4 Phosphorus Magnesium Total Bilirubin 0.6 AST 27 ALT 29 Alkaline Phosphatase 125 Troponin I 0.0250 NT-Pro-B Natriuret Pep 36809 H Total Protein 5.7 L Albumin 2.8 L D Globulin 2.9 Albumin/Globulin Ratio 1.0 Arterial Blood Potassium Venous Blood Potassium Accession No. : [id number] Patient Name / ID : SHERRI AREVALO / [id number] Exam Date : 05/14/2018 00:00:13 ( Approved ) Study Comment : Sex / Age : F / 83Y Creator : Som Cisneros MD Dictator : Som Cisneros MD Mailhouse Operator : Snack Bar Cashier : Som Cisneros MD Approver2 : Report Date : 05/14/2018 09:46:37 My Comment : Date of service: 05/14/2018 HISTORY: Sepsis Patient COMPARISON: No prior. FINDINGS: LUNGS: Bilateral lower lobe and/or infiltrates with bilateral effusions. PLEURA: No significant pleural effusion identified, no pneumothorax apparent. CARDIOVASCULAR: Cardiomegaly. Bipolar pacemaker/defibrillator. OSSEOUS STRUCTURES: DJD both shoulders right greater than left. . Metallic clips seen in the right axilla.. VISUALIZED UPPER ABDOMEN: Normal. OTHER FINDINGS: There is any elliptical shaped peripherally (ease eggshell like calcification) lesion in the right parasagittal base of neck most consistent with a calcified thyroid nodule that measures approximately 3.65 x 2.9 cm. Note made of what appears represent a small Angiocath overlying the right lateral lower neck. Clinical correlation recommended IMPRESSION: Bilateral lower lobe atelectasis and infiltrates and bilateral effusions. Cardiomegaly There is any elliptical shaped peripherally (ease eggshell like calcification) lesion in the right parasagittal base of neck most consistent with a calcified thyroid nodule that measures approximately 3.65 x 2.9 cm. Note made of what appears represent a small Angiocath overlying the right lateral lower neck. Clinical correlation recommended Accession No. : [id number] Patient Name / ID : SHERRI AREVALO / [id number] Exam Date : 05/14/2018 07:35:33 ( Approved ) Study Comment : Sex / Age : F / 83Y Creator : Som Cisneros MD Dictator : Som Cisneros MD Mailhouse Operator : Snack Bar Cashier : Som Cisneros MD Approver2 : Report Date : 05/14/2018 09:48:44 My Comment : Date of service: 05/14/2018 PROCEDURE: CT Chest without contrast HISTORY: Bilateral Pleural effusion. r/o right basal infiltrate COMPARISON: Comparison made with chest radiograph dated 05/14/2018 TECHNIQUE: Contiguous axial images were obtained through the chest without intravenous contrast enhancement. Sagittal and coronal reconstructions were performed. Radiation dose (DLP): 509.8 MGy-cm. This CT exam was performed using one or more of the following dose reduction techniques: Automated exposure control, adjustment of the mA and/or kV according to patient size, and/or use of iterative reconstruction technique. FINDINGS: LUNGS: Bilateral lower lobe atelectasis and/or infiltration changes with moderate- sized chance bilateral effusions MEDIASTINUM: Heart appears enlarged. No significant pericardial effusion. PLEURA: As above. No pneumothorax. BONES: Multilevel degenerative spondylosis of the thoracic spine. There are no acute compression fractures no retropulsed fragments. UPPER ABDOMEN: Cholecystectomy clips. OTHER FINDINGS: There is a round/elliptical shaped mass lesion in the right aspect of the neck with presumably within the right thyroid gland that exhibits a peripheral eggshell like rim calcification measuring 3.5 x 2.7 x 2.7 cm. . IMPRESSION: Bilateral lower lobe atelectasis and/or infiltrates with moderate-size bilateral effusions. Accession No. : [id number] Patient Name / ID : SHERRI AREVALO / [id number] Exam Date : 05/14/2018 04:46:14 ( Approved ) Study Comment : Sex / Age : F / 83Y Creator : Som Cisneros MD Dictator : Som Cisneros MD Mailhouse Operator : Snack Bar Cashier : Som Cisneros MD Approver2 : Report Date : 05/14/2018 09:39:21 My Comment : Date of service: 05/14/2018 PROCEDURE: CT HEAD WITHOUT CONTRAST. HISTORY: Altered Mental Status COMPARISON: CT scan brain dated 01/27/2015. TECHNIQUE: Axial computed tomography images were obtained through the head/brain without intravenous contrast. Radiation dose: Total exam DLP = 870.15 mGy-cm. This CT exam was performed using one or more of the following dose reduction techniques: Automated exposure control, adjustment of the mA and/or kV according to patient size, and/or use of iterative reconstruction technique. FINDINGS: HEMORRHAGE: No acute parenchymal, subarachnoid or extra-axial hemorrhage. . 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 In addition, moderate to significant diffuse/confluent chronic white matter ischemic changes seen extending peripherally into the deep and subcortical white matter both cerebral hemispheres. Moderate to significant generalized volume loss. Dense vascular calcifications both carotid siphons VENTRICLES: No obstructive hydrocephalus. CALVARIUM: Calvarium intact Vascular calcifications within the scalp again noted suggesting underlying IDDM. Clinical correlation with history recommended. PARANASAL SINUSES: Unremarkable as visualized. No significant inflammatory changes. MASTOID AIR CELLS: Unremarkable as visualized. No inflammatory changes. OTHER FINDINGS: Changes of bilateral cataract surgery. IMPRESSION: Normal CT of the Head. Assessment & Plan (1) ESRD (end stage renal disease) on dialysis Status: Acute Priority: High (2) Pneumonia Status: Acute (3) Left arm cellulitis Status: Acute - Assessment and Plan (Free Text) Assessment: A/P- 83 year old [place] resident female with ESRD on HD, dementia, CAd, PPm who was admitted with more dementia than usual and left arm cellulitis. In ed pt. found to have [id number] and B/l pleural effusion and pneumonia on cxr . plan- check blood cx x 2. checl LUE US r/o abscess or fluid colelction. advise to start pt. on IV vancomycin post HD days. keep trough <15. advise to also apply warm compress to the LUE. kortney advise to continue pt. on the IV cefepime for pneumonia treatment that was already initiated by the Hospitalist last night. monitor for any rash while on cephalosporin. check urine legionella AG. check mycoplasma serology as well. all labs , imaging and med records reviewed. ICU time spent 60 minutes. Thank you for allowing met o take part in the care of this patient.
--- NOTE | 2018-05-14 11:21 | CP.PCM.CON ---
History of Present Illness - History of Present Illness History of Present Illness: Pulmonary consult for a 83 y/o F with Pulmonary edema. 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 Pt more disoriented than her usual base line, associated to fever ( TMAx 100.2F), LUE and facial swelling also discharged from L eye. Pt is non verbal, Worsening symptoms: Non verbal, found with B/L lower lobe infiltrates and moderate pleural effusion on CXR and CT, Dopler US LUE no DVT, also on monitor , showing A Fib with RBBB. Aggravated factor: Movements/exercise. Hx collected from NH and hospital notes, Pt non verbal. Review of Systems - Review of Systems Systems not reviewed;Unavailable: Acuity of Condition, Dementia, Altered Mental Status Past Patient History - Past Medical History & Family History Past Medical History?: Yes Pertinent Family History: Unknown - Past Social History Smoking Status: Never Smoked Alcohol: None Drugs: Denies Home Situation {Lives}: [facility] - CARDIAC Hx Cardiac Disorders: Yes Hx Heart Attack: Yes Hx Hypercholesterolemia: Yes Hx Hypertension: Yes Hx Pacemaker: Yes - PULMONARY Hx Respiratory Disorders: No - NEUROLOGICAL Hx Neurological Disorder: Yes Hx Dementia: Yes Hx Transient Ischemic Attacks (TIA): Yes - HEENT Hx HEENT Problems: No - RENAL Hx Chronic Kidney Disease: Yes Hx Dialysis: Yes Hx Kidney Stones: No - ENDOCRINE/METABOLIC Hx Endocrine Disorders: No Hx Diabetes Mellitus Type 2: Yes - HEMATOLOGICAL/ONCOLOGICAL Hx AIDS: No Hx Human Immunodeficiency Virus (HIV): No - INTEGUMENTARY Hx Dermatological Problems: No - MUSCULOSKELETAL/RHEUMATOLOGICAL Hx Falls: No - GASTROINTESTINAL Hx Gastrointestinal Disorders: Yes Hx Hemorrhoids: Yes - GENITOURINARY/GYNECOLOGICAL Hx Genitourinary Disorders: No - PSYCHIATRIC Hx Substance Use: No - SURGICAL HISTORY Hx Arteriovenous Shunt: Yes (R Arm) Hx Cholecystectomy: Yes - ANESTHESIA Hx Anesthesia: Yes Hx Anesthesia Reactions: No Meds Allergies/Adverse Reactions: Allergies Allergy/AdvReac Type Severity Reaction Status Date / Time moxifloxacin Allergy SHORTNESS Verified 05/14/18 00:01 OF BREATH Penicillins Allergy RASH Verified 05/14/18 00:01 - Medications Medications: Current Medications Acetaminophen (Tylenol 325 Mg Supp) 975 mg [place] ONCE PRN PRN Reason: Fever >100.4 F Acetaminophen (Tylenol 325mg Tab) 650 mg PO PRN PRN PRN Reason: Pain, Mild (1-3) Artificial Tears (Artificial Tears) 1 drop OU Q8H PRN PRN Reason: Dry eyes Atorvastatin Calcium (Lipitor) 20 mg PO HS [facility] Calcium/Vitamin D (Oyster Shell Calcium/Vitamin D 500 Mg-200 Iu) 1 tab PO BID [facility] Clonidine HCl (Catapres) 0.2 mg PO Q8H [facility] Clopidogrel Bisulfate (Plavix) 75 mg PO DAILY [facility] Cyproheptadine HCl (Periactin) 4 mg PO BID [facility] Famotidine (Pepcid) 20 mg PO BID [facility] Guaifenesin/Dextromethorphan (Robitussin Dm) 5 ml PO QID PRN PRN Reason: Cough and congestion Heparin Sodium (Porcine) (Heparin) 5,000 units SC Q8 [facility] PRN Reason: Protocol Home Med (Pravastatin Sodium [Pravastatin]) 40 mg PO HS [facility] Hydralazine HCl (Apresoline) 50 mg PO Q6H [facility] Last Admin: 05/14/18 06:25 Dose: Not Given Vancomycin HCl 1 gm/ Sodium (Chloride) 250 mls @ 125 mls/hr IVPB MWF [facility] PRN Reason: Protocol Cefepime HCl 1 gm/ Sodium (Chloride) 100 mls @ 100 mls/hr IVPB DAILY [facility] PRN Reason: Protocol Isosorbide Mononitrate (Imdur) 60 mg PO DAILY [facility] Isosorbide Mononitrate (Imdur) 60 mg PO DAILY [facility] Lactulose (Enulose) 10 gm PO PRN PRN PRN Reason: Constipation Losartan Potassium (Cozaar) 100 mg PO DAILY [facility] Neomycin/Polymyxin/Bacitracin (Bacitracin/Neomycin/Polymyxin Opht Oint) 1 applic OS Q4 [facility] Pantoprazole Sodium (Protonix Ec Tab) 20 mg PO DAILY [facility] Sevelamer HCl (Renagel) 800 mg PO TID [facility] Tobramycin/Dexamethasone (Tobradex 0.3%-0.1% Opht Oint) appl OU TID [facility] Physical Exam - Constitutional Appears: Chronically Ill - Head Exam Head Exam: ATRAUMATIC - Eye Exam Additional comments: L eye with yellow secretions. Pupil reacting to light - ENT Exam ENT Exam: Mucous Membranes Moist - Neck Exam Neck exam: Positive for: Normal Inspection - Respiratory Exam Respiratory Exam: Decreased Breath Sounds (b/l) - Cardiovascular Exam Cardiovascular Exam: REGULAR RHYTHM Additional comments: PPM - GI/Abdominal Exam GI & Abdominal Exam: Normal Bowel Sounds, Soft - Extremities Exam Additional comments: edema lower extremities R>L, L upper extremity swollen,erythema , R arm AV Fistula - Back Exam Back exam: NORMAL INSPECTION - Neurological Exam Additional comments: non verbal, no facial droop, moves upper extremities. - Skin Skin Exam: Warm Results - Vital Signs Recent Vital Signs: Last Vital Signs Temp 98.9 F 05/14/18 10:46 Pulse 112 H 05/14/18 10:46 Resp 19 05/14/18 10:46 BP 247/191 H 05/14/18 10:46 Pulse Ox 99 05/14/18 10:56 reviewed Freya - Labs Result Diagrams: 05/17/18 05:00 05/17/18 05:00 Labs: Laboratory Results - last 24 hr 05/14/18 05/14/18 05/14/18 00:14 01:12 01:12 WBC 6.5 RBC 3.57 L Hgb 11.2 L Hct 34.7 MCV 97.1 MCH 31.3 H MCHC 32.3 L RDW 18.1 H Plt Count 172 MPV 9.0 Neut % (Auto) 77.6 H Lymph % (Auto) 10.9 L [place] % (Auto) 10.7 H Eos % (Auto) 0.1 Baso % (Auto) 0.7 Neut # (Auto) 5.0 Lymph # (Auto) 0.7 L [place] # (Auto) 0.7 Eos # (Auto) 0.0 Baso # (Auto) 0.0 PT INR APTT pCO2 pO2 34 HCO3 ABG pH ABG Total CO2 ABG O2 Saturation ABG Base Excess Willie Test ABG Potassium VBG pH 7.39 VBG pCO2 47 VBG HCO3 26.2 VBG Total CO2 29.9 H VBG O2 Sat (Calc) 65.9 H VBG Base Excess 2.8 H VBG Potassium 3.6 A-a O2 Difference Sodium 133.0 132 Chloride 98.0 93 L Glucose 131 H Lactate 0.9 Mechanical Rate FiO2 21.0 Inspiratory BiPAP Expiratory BiPAP Potassium 4.4 Carbon Dioxide 24 Anion Gap 19 BUN 40 H Creatinine 5.4 H Est GFR ( Amer) 9 Est GFR (Non-Af Amer) 8 Random Glucose 122 H Calcium 8.9 Phosphorus 2.4 L Magnesium 2.3 Total Bilirubin 0.9 AST 45 H ALT 32 Alkaline Phosphatase 153 H Troponin I NT-Pro-B Natriuret Pep Total Protein 6.9 Albumin 3.7 Globulin 3.3 Albumin/Globulin Ratio 1.1 Arterial Blood Potassium Venous Blood Potassium 3.6 05/14/18 05/14/18 05/14/18 01:12 02:15 05:42 WBC RBC Hgb Hct MCV MCH MCHC RDW Plt Count MPV Neut % (Auto) Lymph % (Auto) [place] % (Auto) Eos % (Auto) Baso % (Auto) Neut # (Auto) Lymph # (Auto) [place] # (Auto) Eos # (Auto) Baso # (Auto) PT 12.8 INR 1.2 APTT 31.1 pCO2 44 pO2 465 H 46 HCO3 27.1 ABG pH 7.41 ABG Total CO2 29.3 H ABG O2 Saturation 99.5 H ABG Base Excess 2.7 Willie Test Yes ABG Potassium 3.7 VBG pH 7.39 VBG pCO2 49 VBG HCO3 27.4 VBG Total CO2 31.2 H VBG O2 Sat (Calc) 84.3 H VBG Base Excess 3.7 H VBG Potassium 4.4 A-a O2 Difference 193.0 Sodium 129.0 L 133.0 Chloride 96.0 L 98.0 Glucose 133 H 131 H Lactate 0.7 0.8 Mechanical Rate 14 FiO2 100.0 60.0 Inspiratory BiPAP 12 Expiratory BiPAP 6 6 Potassium Carbon Dioxide Anion Gap BUN Creatinine Est GFR ( Amer) Est GFR (Non-Af Amer) Random Glucose Calcium Phosphorus Magnesium Total Bilirubin AST ALT Alkaline Phosphatase Troponin I NT-Pro-B Natriuret Pep Total Protein Albumin Globulin Albumin/Globulin Ratio Arterial Blood Potassium 3.7 Venous Blood Potassium 4.4 05/14/18 05/14/18 06:45 06:45 WBC 4.3 L RBC 3.53 L Hgb 11.0 L Hct 34.5 MCV 97.8 MCH 31.2 H MCHC 31.9 L RDW 17.8 H Plt Count 121 L D MPV 8.4 Neut % (Auto) 67.0 Lymph % (Auto) 18.4 L [place] % (Auto) 13.5 H Eos % (Auto) 0.4 Baso % (Auto) 0.7 Neut # (Auto) 2.9 Lymph # (Auto) 0.8 L [place] # (Auto) 0.6 Eos # (Auto) 0.0 Baso # (Auto) 0.0 PT INR APTT pCO2 pO2 HCO3 ABG pH ABG Total CO2 ABG O2 Saturation ABG Base Excess Willie Test ABG Potassium VBG pH VBG pCO2 VBG HCO3 VBG Total CO2 VBG O2 Sat (Calc) VBG Base Excess VBG Potassium A-a O2 Difference Sodium 133 Chloride 96 L Glucose Lactate Mechanical Rate FiO2 Inspiratory BiPAP Expiratory BiPAP Potassium 4.1 Carbon Dioxide 26 Anion Gap 15 BUN 41 H Creatinine 5.7 H Est GFR ( Amer) 9 Est GFR (Non-Af Amer) 7 Random Glucose 117 H Calcium 8.4 Phosphorus Magnesium Total Bilirubin 0.6 AST 27 ALT 29 Alkaline Phosphatase 125 Troponin I 0.0250 NT-Pro-B Natriuret Pep 12752 H Total Protein 5.7 L Albumin 2.8 L D Globulin 2.9 Albumin/Globulin Ratio 1.0 Arterial Blood Potassium Venous Blood Potassium reviewed J.P. - Imaging and Cardiology Chest x-ray Status: Report reviewed by me (NadegeP.) CT scan - chest Status: Report reviewed by me (NadegePPamela) CT scan - head Status: Report reviewed by me (NadegePPamela) Venous US Status: Report reviewed by me (Aneudy.P.) Assessment & Plan (1) Pneumonia Status: Acute Priority: High (2) Pleural effusion Status: Acute Priority: High Comment: Moderate b/l - Assessment and Plan (Free Text) Plan: Pt on BIPAP, FIO2 60%, Continue Cefepime , Viviana Escalona DM - Date & Time Date: 05/14/18 Time: 11:30
--- NOTE | 2018-05-14 11:36 | CP.PCM.CON ---
History of Present Illness - History of Present Illness History of Present Illness: This patient whole is 83 years of age female with history of end stage renal disease on maintenance hemodialysis TTS. She has been on dialysis for 9 years and she has been follow-up at [facility] dialysis unit and nursing go home. And she has been follow-up by my group director of retail analytics that to his been seen her at the nursing go home. There was no history available from the patient and she is not verbalizing only responding to the pain stimuli. Her son and the daughter at the bedside and some history was taken in addition to the history of end stage renal disease for 9 years history of diabetes mellitus hypertension dementia and right AV shunt. And patient noted that she has bilateral infiltrate and pleural effusion and rule out pulmonary emboli as noted by the cardiology PMH: CAD, Dementia, HTN, HLD; End Stage Renal Disease on HD MWF; TIA, Falls, hemorrhoides PSH: Cholecystectomy, Pacemaker, AV fistula right forearm SH: Unknown if ever smoked; No illegal drug use; No Alcohol; reside at the [facility] FH: States: Unknown Family Hx Allergies: PCN causes rash; Moxifloxacin causes SOB Medication: Reviewed Review of Systems - Review of Systems Systems not reviewed;Unavailable: Dementia - Constitutional Constitutional: Anorexia. absent: Chills, Night Sweats - EENT Nose/Mouth/Throat: absent: Epistaxis, Nasal Discharge - Cardiovascular Cardiovascular: Dyspnea on Exertion. absent: Chest Pain at Rest - Respiratory Respiratory: Dyspnea, Chest Congestion. absent: Hemoptysis - Gastrointestinal Gastrointestinal: absent: Coffee Ground Emesis, Nausea - Genitourinary Genitourinary: Nocturia - Musculoskeletal Musculoskeletal: Muscle Weakness. absent: Arthralgias - Neurological Neurological: Confusion Additional comments: Patient is flat in the bed no history obtainable - Psychiatric Psychiatric: As Per HPI - Endocrine Endocrine: Fatigue - Hematologic/Lymphatic Hematologic: absent: Easy Bleeding Past Patient History - Past Medical History & Family History Past Medical History?: Yes - Past Social History Smoking Status: Never Smoked - CARDIAC Hx Hypercholesterolemia: Yes Hx Hypertension: Yes Hx Pacemaker: Yes - PULMONARY Hx Respiratory Disorders: No - NEUROLOGICAL Hx Dementia: Yes Hx Transient Ischemic Attacks (TIA): Yes - HEENT Hx HEENT Problems: No - RENAL Hx Chronic Kidney Disease: Yes Hx Kidney Stones: No - ENDOCRINE/METABOLIC Hx Endocrine Disorders: No - HEMATOLOGICAL/ONCOLOGICAL Hx AIDS: No Hx Human Immunodeficiency Virus (HIV): No - INTEGUMENTARY Hx Dermatological Problems: No - MUSCULOSKELETAL/RHEUMATOLOGICAL Hx Falls: No - GASTROINTESTINAL Hx Gastrointestinal Disorders: Yes Hx Hemorrhoids: Yes - GENITOURINARY/GYNECOLOGICAL Hx Genitourinary Disorders: No - PSYCHIATRIC Hx Substance Use: No - SURGICAL HISTORY Hx Cholecystectomy: Yes - ANESTHESIA Hx Anesthesia: Yes Hx Anesthesia Reactions: No Meds Allergies/Adverse Reactions: Allergies Allergy/AdvReac Type Severity Reaction Status Date / Time moxifloxacin Allergy SHORTNESS Verified 05/14/18 00:01 OF BREATH Penicillins Allergy RASH Verified 05/14/18 00:01 - Medications Medications: Current Medications Acetaminophen (Tylenol 325 Mg Supp) 975 mg CO ONCE PRN PRN Reason: Fever >100.4 F Acetaminophen (Tylenol 325mg Tab) 650 mg PO PRN PRN PRN Reason: Pain, Mild (1-3) Artificial Tears (Artificial Tears) 1 drop OU Q8H PRN PRN Reason: Dry eyes Atorvastatin Calcium (Lipitor) 20 mg PO HS [facility] Calcium/Vitamin D (Oyster Shell Calcium/Vitamin D 500 Mg-200 Iu) 1 tab PO BID [facility] Clonidine HCl (Catapres) 0.2 mg PO Q8H [facility] Clopidogrel Bisulfate (Plavix) 75 mg PO DAILY [facility] Cyproheptadine HCl (Periactin) 4 mg PO BID [facility] Famotidine (Pepcid) 20 mg PO BID [facility] Guaifenesin/Dextromethorphan (Robitussin Dm) 5 ml PO QID PRN PRN Reason: Cough and congestion Heparin Sodium (Porcine) (Heparin) 5,000 units SC Q8 [facility] PRN Reason: Protocol Home Med (Pravastatin Sodium [Pravastatin]) 40 mg PO HS [facility] Hydralazine HCl (Apresoline) 50 mg PO Q6H [facility] Last Admin: 05/14/18 06:25 Dose: Not Given Vancomycin HCl 1 gm/ Sodium (Chloride) 250 mls @ 125 mls/hr IVPB MWF [facility] PRN Reason: Protocol Cefepime HCl 1 gm/ Sodium (Chloride) 100 mls @ 100 mls/hr IVPB DAILY [facility] PRN Reason: Protocol Isosorbide Mononitrate (Imdur) 60 mg PO DAILY [facility] Isosorbide Mononitrate (Imdur) 60 mg PO DAILY [facility] Lactulose (Enulose) 10 gm PO PRN PRN PRN Reason: Constipation Losartan Potassium (Cozaar) 100 mg PO DAILY [facility] Neomycin/Polymyxin/Bacitracin (Bacitracin/Neomycin/Polymyxin Opht Oint) 1 applic OS Q4 [facility] Pantoprazole Sodium (Protonix Ec Tab) 20 mg PO DAILY [facility] Sevelamer HCl (Renagel) 800 mg PO TID [facility] Tobramycin/Dexamethasone (Tobradex 0.3%-0.1% Opht Oint) appl OU TID [facility] Physical Exam - Constitutional Appears: No Acute Distress, Confused - Eye Exam Eye Exam: Conjunctival injection - ENT Exam ENT Exam: Mucous Membranes Moist - Neck Exam Neck exam: Negative for: Lymphadenopathy - Respiratory Exam Respiratory Exam: Rales, Rhonchi, NORMAL BREATHING PATTERN - Cardiovascular Exam Cardiovascular Exam: Irregular Rhythm. absent: JVD, Rubs - GI/Abdominal Exam GI & Abdominal Exam: Guarding, Normal Bowel Sounds - Extremities Exam Extremities exam: Negative for: calf tenderness - Back Exam Back exam: absent: CVA tenderness (L), CVA tenderness (R) - Neurological Exam Neurological exam: Altered - Psychiatric Exam Psychiatric exam: Flat Affect Results - Vital Signs Recent Vital Signs: Last Vital Signs Temp 98.9 F 05/14/18 10:46 Pulse 112 H 05/14/18 10:46 Resp 19 05/14/18 10:46 BP 247/191 H 05/14/18 10:46 Pulse Ox 99 05/14/18 10:56 - Labs Result Diagrams: 05/14/18 06:45 05/14/18 06:45 Labs: Laboratory Results - last 24 hr 05/14/18 05/14/18 05/14/18 00:14 01:12 01:12 WBC 6.5 RBC 3.57 L Hgb 11.2 L Hct 34.7 MCV 97.1 MCH 31.3 H MCHC 32.3 L RDW 18.1 H Plt Count 172 MPV 9.0 Neut % (Auto) 77.6 H Lymph % (Auto) 10.9 L [place] % (Auto) 10.7 H Eos % (Auto) 0.1 Baso % (Auto) 0.7 Neut # (Auto) 5.0 Lymph # (Auto) 0.7 L [place] # (Auto) 0.7 Eos # (Auto) 0.0 Baso # (Auto) 0.0 PT INR APTT pCO2 pO2 34 HCO3 ABG pH ABG Total CO2 ABG O2 Saturation ABG Base Excess Willie Test ABG Potassium VBG pH 7.39 VBG pCO2 47 VBG HCO3 26.2 VBG Total CO2 29.9 H VBG O2 Sat (Calc) 65.9 H VBG Base Excess 2.8 H VBG Potassium 3.6 A-a O2 Difference Sodium 133.0 132 Chloride 98.0 93 L Glucose 131 H Lactate 0.9 Mechanical Rate FiO2 21.0 Inspiratory BiPAP Expiratory BiPAP Potassium 4.4 Carbon Dioxide 24 Anion Gap 19 BUN 40 H Creatinine 5.4 H Est GFR ( Amer) 9 Est GFR (Non-Af Amer) 8 Random Glucose 122 H Calcium 8.9 Phosphorus 2.4 L Magnesium 2.3 Total Bilirubin 0.9 AST 45 H ALT 32 Alkaline Phosphatase 153 H Troponin I NT-Pro-B Natriuret Pep Total Protein 6.9 Albumin 3.7 Globulin 3.3 Albumin/Globulin Ratio 1.1 Arterial Blood Potassium Venous Blood Potassium 3.6 05/14/18 05/14/18 05/14/18 01:12 02:15 05:42 WBC RBC Hgb Hct MCV MCH MCHC RDW Plt Count MPV Neut % (Auto) Lymph % (Auto) [place] % (Auto) Eos % (Auto) Baso % (Auto) Neut # (Auto) Lymph # (Auto) [place] # (Auto) Eos # (Auto) Baso # (Auto) PT 12.8 INR 1.2 APTT 31.1 pCO2 44 pO2 465 H 46 HCO3 27.1 ABG pH 7.41 ABG Total CO2 29.3 H ABG O2 Saturation 99.5 H ABG Base Excess 2.7 Willie Test Yes ABG Potassium 3.7 VBG pH 7.39 VBG pCO2 49 VBG HCO3 27.4 VBG Total CO2 31.2 H VBG O2 Sat (Calc) 84.3 H VBG Base Excess 3.7 H VBG Potassium 4.4 A-a O2 Difference 193.0 Sodium 129.0 L 133.0 Chloride 96.0 L 98.0 Glucose 133 H 131 H Lactate 0.7 0.8 Mechanical Rate 14 FiO2 100.0 60.0 Inspiratory BiPAP 12 Expiratory BiPAP 6 6 Potassium Carbon Dioxide Anion Gap BUN Creatinine Est GFR ( Amer) Est GFR (Non-Af Amer) Random Glucose Calcium Phosphorus Magnesium Total Bilirubin AST ALT Alkaline Phosphatase Troponin I NT-Pro-B Natriuret Pep Total Protein Albumin Globulin Albumin/Globulin Ratio Arterial Blood Potassium 3.7 Venous Blood Potassium 4.4 05/14/18 05/14/18 06:45 06:45 WBC 4.3 L RBC 3.53 L Hgb 11.0 L Hct 34.5 MCV 97.8 MCH 31.2 H MCHC 31.9 L RDW 17.8 H Plt Count 121 L D MPV 8.4 Neut % (Auto) 67.0 Lymph % (Auto) 18.4 L [place] % (Auto) 13.5 H Eos % (Auto) 0.4 Baso % (Auto) 0.7 Neut # (Auto) 2.9 Lymph # (Auto) 0.8 L [place] # (Auto) 0.6 Eos # (Auto) 0.0 Baso # (Auto) 0.0 PT INR APTT pCO2 pO2 HCO3 ABG pH ABG Total CO2 ABG O2 Saturation ABG Base Excess Willie Test ABG Potassium VBG pH VBG pCO2 VBG HCO3 VBG Total CO2 VBG O2 Sat (Calc) VBG Base Excess VBG Potassium A-a O2 Difference Sodium 133 Chloride 96 L Glucose Lactate Mechanical Rate FiO2 Inspiratory BiPAP Expiratory BiPAP Potassium 4.1 Carbon Dioxide 26 Anion Gap 15 BUN 41 H Creatinine 5.7 H Est GFR ( Amer) 9 Est GFR (Non-Af Amer) 7 Random Glucose 117 H Calcium 8.4 Phosphorus Magnesium Total Bilirubin 0.6 AST 27 ALT 29 Alkaline Phosphatase 125 Troponin I 0.0250 NT-Pro-B Natriuret Pep 33923 H Total Protein 5.7 L Albumin 2.8 L D Globulin 2.9 Albumin/Globulin Ratio 1.0 Arterial Blood Potassium Venous Blood Potassium Assessment & Plan (1) ESRD (end stage renal disease) on dialysis Assessment and Plan: Patient with end stage renal disease admitted with the possible bilateral pneumonia and bilateral pleural effusion and volume overloaded new onset of atrial fibrillation apparently as reported. Patient scheduled to have dialysis TTS. We will proceed for hemodialysis shortly as ordered Consent was taken from the son Antibiotics started septic workup given. And as per primary team has been order CT scan among other things. Status: Acute Priority: High (2) Fever Status: Acute (3) Pneumonia Status: Acute (4) Sepsis Status: Acute
--- NOTE | 2018-05-14 11:39 | CT ---
Date of service: 05/14/2018 PROCEDURE: CT Chest without contrast HISTORY: Bilateral Pleural effusion. r/o right basal infiltrate COMPARISON: Comparison made with chest radiograph dated 05/14/2018 TECHNIQUE: Contiguous axial images were obtained through the chest without intravenous contrast enhancement. Sagittal and coronal reconstructions were performed. Radiation dose (DLP): 509.8 MGy-cm. This CT exam was performed using one or more of the following dose reduction techniques: Automated exposure control, adjustment of the mA and/or kV according to patient size, and/or use of iterative reconstruction technique. FINDINGS: LUNGS: Bilateral lower lobe atelectasis and/or infiltration changes with moderate-sized chance bilateral effusions MEDIASTINUM: Heart appears enlarged. No significant pericardial effusion. PLEURA: As above. No pneumothorax. BONES: Multilevel degenerative spondylosis of the thoracic spine. There are no acute compression fractures no retropulsed fragments. UPPER ABDOMEN: Cholecystectomy clips. OTHER FINDINGS: There is a round/elliptical shaped mass lesion in the right aspect of the neck with presumably within the right thyroid gland that exhibits a peripheral eggshell like rim calcification measuring 3.5 x 2.7 x 2.7 cm. . IMPRESSION: Bilateral lower lobe atelectasis and/or infiltrates with moderate-size bilateral effusions. but equal me on no house 0 not SL fall lesion cannot hold mm given my number on ETT and resume back is in fact the [facility] CT on attending on napping are not met elbow contained a stone not in-house are right EIA stool 0 1 year [phone] dyspnea shine is not vague somewhat cruciate
[2018-05-14] MEDS: Tobramycin/Dexamethasone OPHT OINT OU SCH ×2 (13:00→16:18)
[2018-05-14] MEDS: Bacitracin/Neomycin/Polymyxin OPHT OINT OS SCH ×3 (13:00→21:31)
--- NOTE | 2018-05-14 13:46 | US ---
Date of service: 05/14/2018 PROCEDURE: Left upper extremity HISTORY: Swelling of Left upper extremity COMPARISON: None TECHNIQUE: Real-time ultrasound scan of the veins with color flow, spectral waveform analysis and compression FINDINGS: Compressibility, augmentation and phases [place] documented/within normal limits. This includes the left internal jugular vein. Documentation of flow from the subclavian vein to the cephalic veins noted. IMPRESSION: No evidence of thrombosis left upper extremity venous system
[2018-05-14] MEDS ORDERED: Iodixanol 320 MG/ML 100 ML BOTTLE IV ONE (15:06)
[2018-05-14] MEDS ORDERED: Sodium Chloride 0.9% 0 ML IV ONE (15:07)
[2018-05-14] MEDS: Pantoprazole 20 mg EC Tab PO SCH (16:17)
[2018-05-14] MEDS: Calcium-Vit D 500 mg-200 Units Tab UD PO SCH (16:17)
[2018-05-14 21:14] LABS: HEPATITIS B SURFACE AG Negative (NEGATIVE)
[2018-05-14 21:19] LABS: HEPATITIS B CORE AB NEGATIVE (NEGATIVE)
[2018-05-14] MEDS: guaiFENesin DM 100 mg-10 mg/5 ml UD PO PRN (21:28)
[2018-05-14 21:32] LABS: HEPATITIS C ANTIBODY NEGATIVE (NEGATIVE)
[2018-05-14] MEDS ORDERED: Chlorhexidine Gluconate 1 APPL/PKT TP ONE (23:07)
[2018-05-14] MEDS ORDERED: DiphenhydrAMINE 50 mg/ml Inj IVP ONE (23:59)
[2018-05-15] MEDS: Bacitracin/Neomycin/Polymyxin OPHT OINT OS SCH ×6 (00:40→21:25)
[2018-05-15] MEDS ORDERED: Levalbuterol 1.25 MG/3 ML Inhal Soln UD INH ONE (01:20)
[2018-05-15] MEDS: guaiFENesin-Codeine 100-10mg/5ml Syrup (5 ml) UD PO PRN ×2 (02:22→23:55)
[2018-05-15] MEDS: Cefepime 1 GM in Sodium Chloride 0.9% 100 ML IVPB SCH (08:12)
[2018-05-15] MEDS: Tobramycin/Dexamethasone OPHT OINT OU SCH ×3 (08:14→16:09)
[2018-05-15] MEDS ORDERED: Lidocaine 1% Inj (20ml) ONE (08:36)
[2018-05-15] MEDS: Calcium-Vit D 500 mg-200 Units Tab UD PO SCH ×2 (08:46→16:09)
[2018-05-15] MEDS: Pantoprazole 20 mg EC Tab PO SCH (08:47)
[2018-05-15] MEDS: guaiFENesin DM 100 mg-10 mg/5 ml UD PO PRN ×2 (08:48→16:10)
[2018-05-15] MEDS ORDERED: Sodium Chloride 3% for Inhalation 4 ML VIAL.NEB IH PRN (09:39)
--- NOTE | 2018-05-15 09:39 | CP.PCM.PN ---
Subjective - Date & Time of Evaluation Date of Evaluation: 05/15/18 Time of Evaluation: 09:00 - Subjective Subjective: no fever episodes of tachycardia + cough denies CP no abd pain episodes of confusion as per RN- removes her Oxygen follows simple commands oriented to person and knows she is in the hospital Objective - Vital Signs/Intake and Output Vital Signs (last 24 hours): Temp Pulse Resp BP Pulse Ox 98.5 F 123 H 19 130/70 100 05/15/18 08:04 05/15/18 08:46 05/15/18 08:04 05/15/18 08:46 05/15/18 08:04 - Medications Medications: Current Medications Acetaminophen (Tylenol 325 Mg Supp) 975 mg [place] ONCE PRN PRN Reason: Fever >100.4 F Acetaminophen (Tylenol 325mg Tab) 650 mg PO PRN PRN PRN Reason: Pain, Mild (1-3) Artificial Tears (Artificial Tears) 1 drop OU Q8H PRN PRN Reason: Dry eyes Atorvastatin Calcium (Lipitor) 10 mg PO [facility] Last Admin: 05/14/18 21:34 Dose: Not Given Calcium/Vitamin D (Oyster Shell Calcium/Vitamin D 500 Mg-200 Iu) 1 tab PO BID [facility] Last Admin: 05/15/18 08:46 Dose: 1 tab Clonidine HCl (Catapres) 0.2 mg PO Q8H [facility] Last Admin: 05/15/18 02:18 Dose: Not Given Clopidogrel Bisulfate (Plavix) 75 mg PO DAILY [facility] Last Admin: 05/15/18 08:47 Dose: 75 mg Cyproheptadine HCl (Periactin) 4 mg PO BID [facility] Last Admin: 05/15/18 08:47 Dose: 4 mg Famotidine (Pepcid) 20 mg PO BID [facility] Last Admin: 05/15/18 08:47 Dose: 20 mg Guaifenesin/Codeine Phosphate (Robitussin W/Codeine) 10 ml PO Q4 PRN PRN Reason: Cough Last Admin: 05/15/18 02:22 Dose: 10 ml Guaifenesin/Dextromethorphan (Robitussin Dm) 5 ml PO QID PRN PRN Reason: Cough and congestion Last Admin: 05/15/18 08:48 Dose: 5 ml Heparin Sodium (Porcine) (Heparin) 5,000 units SC Q8 KRIS PRN Reason: Protocol Last Admin: 05/15/18 08:12 Dose: 5,000 units Hydralazine HCl (Apresoline) 50 mg PO Q6H [facility] Last Admin: 05/15/18 05:47 Dose: Not Given Vancomycin HCl 1 gm/ Sodium (Chloride) 250 mls @ 125 mls/hr IVPB MWF KRIS PRN Reason: Protocol Last Admin: 05/15/18 08:15 Dose: 125 mls/hr Cefepime HCl 1 gm/ Sodium (Chloride) 100 mls @ 100 mls/hr IVPB DAILY KRIS PRN Reason: Protocol Last Admin: 05/15/18 08:12 Dose: 100 mls/hr Isosorbide Mononitrate (Imdur) 60 mg PO DAILY [facility] Last Admin: 05/15/18 08:46 Dose: 60 mg Lactulose (Enulose) 10 gm PO PRN PRN PRN Reason: Constipation Losartan Potassium (Cozaar) 100 mg PO DAILY [facility] Last Admin: 05/15/18 08:46 Dose: 100 mg Neomycin/Polymyxin/Bacitracin (Bacitracin/Neomycin/Polymyxin Opht Oint) 1 applic OS Q4 [facility] Last Admin: 05/15/18 08:11 Dose: 1 applic Pantoprazole Sodium (Protonix Ec Tab) 20 mg PO DAILY [facility] Last Admin: 05/15/18 08:47 Dose: 20 mg Sevelamer HCl (Renagel) 800 mg PO TID [facility] [place] Last Admin: 05/15/18 08:47 Dose: 800 mg Tobramycin/Dexamethasone (Tobradex 0.3%-0.1% Opht Oint) 1 appl OU TID [facility] Last Admin: 05/15/18 08:14 Dose: 1 applic - Labs Labs: 05/14/18 06:45 05/14/18 06:45 PT 12.8 Seconds (9.8-13.1) 05/14/18 01:12 INR 1.2 (0.9-1.2) 05/14/18 01:12 APTT 31.1 Seconds (25.6-37.1) 05/14/18 01:12 - Constitutional Appears: No Acute Distress, Chronically Ill - Head Exam Head Exam: NORMAL INSPECTION, NORMOCEPHALIC - Eye Exam Pupil Exam: NORMAL ACCOMODATION - ENT Exam ENT Exam: Mucous Membranes Moist, Normal External Ear Exam - Neck Exam Neck Exam: Full ROM. absent: Meningismus - Respiratory Exam Respiratory Exam: Rales, Rhonchi, NORMAL BREATHING PATTERN. absent: Wheezes, Respiratory Distress - Cardiovascular Exam Cardiovascular Exam: Tachycardia, REGULAR RHYTHM, +S1, +S2 - GI/Abdominal Exam GI & Abdominal Exam: Soft, Normal Bowel Sounds. absent: Tenderness - Extremities Exam Extremities Exam: Full ROM, Normal Capillary Refill, Pedal Edema. absent: Calf Tenderness - Back Exam Back Exam: absent: CVA tenderness (L), CVA tenderness (R) - Neurological Exam Neurological Exam: Alert, Awake Additional comments: oriented to person and place - Psychiatric Exam Psychiatric exam: Flat Affect - Skin Skin Exam: Dry, Normal Color, Warm Assessment and Plan - Assessment and Plan (Free Text) Assessment: 83 years old female residing at the [facility] with hx of HTN, CAD, Dementia and ESRD was sent in bec of change in mental status more demented than normal, with poor appetite along with swelling, of the left upper extremity. 1. Pneumonia , HAP prob bacterial - cont IV vanco and Cefepime - Sputum c/s, Legionella, Mycoplasma, Blood c/s - ID consult 2. AMS due to Metabolic encephalopathy - Hemodialysis - Treat infections - Consulted Dr Workman ID 3. Bilateral Pleural Effusion secondary to volume overload due to Renal Failure - Hemodialysis - pt received a dose of Lasix yesterday 4. A Fib with RVR - Consult Dr Delgado cardiology- discussed case - rec to do CTA to r/o PE given elevated RV pressures - Cardiac monitoring - start low dose Coreg for rate control 5. Left upper extremity swelling - Duplex US of left upper extremity: negative for DVT - ? lymphedema ( previous site of AV shubt???) 6. Anasarca due to the renal failure - Hemodialysis 7. ESRD On HD - consult Dr Edwards Core Winding Operator for Hemodialysis 8. HTN BP low normal will decrease Hydralazine dose to 25 mg q 6 , hold for BP less than 120 systolic cont Imdur and LOsaratn 9. Aortic Stenosis ECHO: EF=40-45% , severe , mod to severe TR and Calcified aortic valve - avoid too muc decrease in preload - Cardio consulted #. DVT with subQ heparin #. Code Status: Full
--- NOTE | 2018-05-15 10:24 | CP.PCM.PN ---
Subjective - Date & Time of Evaluation Date of Evaluation: 05/15/18 Time of Evaluation: 09:30 - Subjective Subjective: Discussed case with intesivist and Dr. Doran Pt tolerated HD well Still mildly hypoxic Given clinical presentation and enlarged RV, have recommended CT angio of the chest to R/O PE Scheduled to have it today. Objective - Vital Signs/Intake and Output Vital Signs (last 24 hours): Temp Pulse Resp BP Pulse Ox 98.5 F 123 H 19 130/70 100 05/15/18 08:04 05/15/18 08:46 05/15/18 08:04 05/15/18 08:46 05/15/18 08:04 - Medications Medications: Current Medications Acetaminophen (Tylenol 325 Mg Supp) 975 mg [place] ONCE PRN PRN Reason: Fever >100.4 F Acetaminophen (Tylenol 325mg Tab) 650 mg PO PRN PRN PRN Reason: Pain, Mild (1-3) Artificial Tears (Artificial Tears) 1 drop OU Q8H PRN PRN Reason: Dry eyes Atorvastatin Calcium (Lipitor) 10 mg PO [facility] Last Admin: 05/14/18 21:34 Dose: Not Given Benzonatate (Tessalon Perles) 100 mg PO TID PRN PRN Reason: Cough Calcium/Vitamin D (Oyster Shell Calcium/Vitamin D 500 Mg-200 Iu) 1 tab PO BID [facility] Last Admin: 05/15/18 08:46 Dose: 1 tab Clonidine HCl (Catapres) 0.2 mg PO Q8H [facility] Last Admin: 05/15/18 02:18 Dose: Not Given Clopidogrel Bisulfate (Plavix) 75 mg PO DAILY [facility] Last Admin: 05/15/18 08:47 Dose: 75 mg Cyproheptadine HCl (Periactin) 4 mg PO BID [facility] Last Admin: 05/15/18 08:47 Dose: 4 mg Famotidine (Pepcid) 20 mg PO BID [facility] Last Admin: 05/15/18 08:47 Dose: 20 mg Guaifenesin/Codeine Phosphate (Robitussin W/Codeine) 10 ml PO Q4 PRN PRN Reason: Cough Last Admin: 05/15/18 02:22 Dose: 10 ml Guaifenesin/Dextromethorphan (Robitussin Dm) 5 ml PO QID PRN PRN Reason: Cough and congestion Last Admin: 05/15/18 08:48 Dose: 5 ml Heparin Sodium (Porcine) (Heparin) 5,000 units SC Q8 KRIS PRN Reason: Protocol Last Admin: 05/15/18 08:12 Dose: 5,000 units Hydralazine HCl (Apresoline) 50 mg PO Q6H [facility] Last Admin: 05/15/18 05:47 Dose: Not Given Vancomycin HCl 1 gm/ Sodium (Chloride) 250 mls @ 125 mls/hr IVPB MWF [facility] PRN Reason: Protocol Last Admin: 05/15/18 08:15 Dose: 125 mls/hr Cefepime HCl 1 gm/ Sodium (Chloride) 100 mls @ 100 mls/hr IVPB DAILY [facility] PRN Reason: Protocol Last Admin: 05/15/18 08:12 Dose: 100 mls/hr Isosorbide Mononitrate (Imdur) 60 mg PO DAILY [facility] Last Admin: 05/15/18 08:46 Dose: 60 mg Lactulose (Enulose) 10 gm PO PRN PRN PRN Reason: Constipation Losartan Potassium (Cozaar) 100 mg PO DAILY [facility] Last Admin: 05/15/18 08:46 Dose: 100 mg Neomycin/Polymyxin/Bacitracin (Bacitracin/Neomycin/Polymyxin Opht Oint) 1 applic OS Q4 [facility] Last Admin: 05/15/18 08:11 Dose: 1 applic Pantoprazole Sodium (Protonix Ec Tab) 20 mg PO DAILY [facility] Last Admin: 05/15/18 08:47 Dose: 20 mg Sevelamer HCl (Renagel) 800 mg PO TID [facility] Last Admin: 05/15/18 08:47 Dose: 800 mg Tobramycin/Dexamethasone (Tobradex 0.3%-0.1% Opht Oint) 1 appl OU TID [facility] Last Admin: 05/15/18 08:14 Dose: 1 applic - Labs Labs: 05/14/18 06:45 05/14/18 06:45 PT 12.8 Seconds (9.8-13.1) 05/14/18 01:12 INR 1.2 (0.9-1.2) 05/14/18 01:12 APTT 31.1 Seconds (25.6-37.1) 05/14/18 01:12
--- NOTE | 2018-05-15 10:28 | RAD ---
Date of service: 05/14/2018 HISTORY: Persistent coughing COMPARISON: Comparison chest 05/14/2018 FINDINGS: LUNGS: Re- demonstrated mild pulmonary venous congestive changes with bilateral lower lobe alveolar-type infiltrates and bilateral effusions right larger than left. PLEURA: As above. No pneumothorax apparent. CARDIOVASCULAR: Cardiomegaly. No change bipolar pacemaker/further the the OSSEOUS STRUCTURES: No significant abnormalities. VISUALIZED UPPER ABDOMEN: Normal. OTHER FINDINGS: Re- demonstrated is a elliptical shaped peripherally calcified (eggshell like appearance) mass in the right parasagittal upper mediastinum presumably within the right lobe thyroid gland. IMPRESSION: No mild pulmonary venous congestive changes with bilateral lower lobe alveolar-type infiltrates and bilateral effusions right larger than left.
--- NOTE | 2018-05-15 10:33 | PCM.PROC ---
<Presley Aguilar - Last Filed: 05/15/18 10:31> Procedures Attestation:: I certify that I have explained the specified Operation(s) or Procedure(s), risks, benefits and reasonable alternatives to the Patient and/or other person responsible. The opportunity was given to ask questions and all questions answered - Central Line Placement Right Femoral Aseptic technique was employed throughout the procedure: Hand Hygiene done prior to procedure, Full sterile barriers (mask, hair cover, sterile gown, sterile gloves), Full body sterile drape, Chloraprep Antiseptic: 2 minute prep for Femoral CVP Time Out Performed: Yes Pt. Placed on Pulse Ox Monitor: Yes Central Line Prep: Chlorhexidine-Alcohol Combination Local Anesthesia Used: Lidocaine 1% Amount of Anesthesia Used (mls): 10 Ultrasound Used for Placement: No Central Line Lumen Inserted: triple Central Line Length: 20 cm Post Procedure: Sutured in Place, Good Blood Return, All Ports Aspirated, Flushed, Capped, Sterile Dressing Applied Secured by: Suture Post procedure dressing: Gauze, Clear vapor permeable, Chlorhexidine disc ( Biopatch) Post Procedure X-Ray: No Patient Tolerated Procedure: Well, No Complications Immediate Complications: None <Ankit Higgins - Last Filed: 05/15/18 17:41> Procedures Attestation:: I certify that I have explained the specified Operation(s) or Procedure(s), risks, benefits and reasonable alternatives to the Patient and/or other person responsible. The opportunity was given to ask questions and all questions answered - Central Line Placement Right Femoral Additional Comments: Procedure performed under emergent conditions in ICU for poor peripheral IV Access. IR unable to place PICC line due to edematous LUE, and existing RUE AVshunt. Bilateral anterior cervical neck areas are swollen from previous hematomas from previous attempts to obtain venous access in those areas, thus R femoral site was chosen. Procedure supervised by me at the bedside in it's entirety as performed by Dr. Hi Aguilar under my direct guidance. Patient tolerated procedure well without any complications.
--- NOTE | 2018-05-15 11:19 | CP.PCM.PN ---
Subjective - Date & Time of Evaluation Date of Evaluation: 05/15/18 Time of Evaluation: 11:19 - Subjective Subjective: ID Note- Pt. seen and examined today in ICU. Pt. much more awake today and is somewhat combative/agitated ( apparently that is her baseline). has new TLC femoral line now. left arm peripheral IVL to be removed. Objective - Vital Signs/Intake and Output Vital Signs (last 24 hours): Temp Pulse Resp BP Pulse Ox 98.5 F 123 H 19 130/70 100 05/15/18 08:04 05/15/18 08:46 05/15/18 08:04 05/15/18 08:46 05/15/18 08:04 - Medications Medications: Current Medications Acetaminophen (Tylenol 325 Mg Supp) 975 mg [place] ONCE PRN PRN Reason: Fever >100.4 F Acetaminophen (Tylenol 325mg Tab) 650 mg PO PRN PRN PRN Reason: Pain, Mild (1-3) Artificial Tears (Artificial Tears) 1 drop OU Q8H PRN PRN Reason: Dry eyes Atorvastatin Calcium (Lipitor) 10 mg PO HS [facility] Last Admin: 05/14/18 21:34 Dose: Not Given Benzonatate (Tessalon Perles) 100 mg PO TID PRN PRN Reason: Cough Calcium/Vitamin D (Oyster Shell Calcium/Vitamin D 500 Mg-200 Iu) 1 tab PO BID [facility] Last Admin: 05/15/18 08:46 Dose: 1 tab Clonidine HCl (Catapres) 0.2 mg PO Q8H [facility] Last Admin: 05/15/18 02:18 Dose: Not Given Clopidogrel Bisulfate (Plavix) 75 mg PO DAILY [facility] Last Admin: 05/15/18 08:47 Dose: 75 mg Cyproheptadine HCl (Periactin) 4 mg PO BID [facility] Last Admin: 05/15/18 08:47 Dose: 4 mg Famotidine (Pepcid) 20 mg PO BID [facility] Last Admin: 05/15/18 08:47 Dose: 20 mg Guaifenesin/Codeine Phosphate (Robitussin W/Codeine) 10 ml PO Q4 PRN PRN Reason: Cough Last Admin: 05/15/18 02:22 Dose: 10 ml Guaifenesin/Dextromethorphan (Robitussin Dm) 5 ml PO QID PRN PRN Reason: Cough and congestion Last Admin: 05/15/18 08:48 Dose: 5 ml Heparin Sodium (Porcine) (Heparin) 5,000 units SC Q8 [facility]IS PRN Reason: Protocol Last Admin: 05/15/18 08:12 Dose: 5,000 units Hydralazine HCl (Apresoline) 50 mg PO Q6H [facility] Last Admin: 05/15/18 05:47 Dose: Not Given Vancomycin HCl 1 gm/ Sodium (Chloride) 250 mls @ 125 mls/hr IVPB MWF [facility] PRN Reason: Protocol Last Admin: 05/15/18 08:15 Dose: 125 mls/hr Cefepime HCl 1 gm/ Sodium (Chloride) 100 mls @ 100 mls/hr IVPB DAILY [facility] PRN Reason: Protocol Last Admin: 05/15/18 08:12 Dose: 100 mls/hr Isosorbide Mononitrate (Imdur) 60 mg PO DAILY [facility] Last Admin: 05/15/18 08:46 Dose: 60 mg Lactulose (Enulose) 10 gm PO PRN PRN PRN Reason: Constipation Losartan Potassium (Cozaar) 100 mg PO DAILY [facility] Last Admin: 05/15/18 08:46 Dose: 100 mg Neomycin/Polymyxin/Bacitracin (Bacitracin/Neomycin/Polymyxin Opht Oint) 1 applic OS Q4 [facility] Last Admin: 05/15/18 08:11 Dose: 1 applic Pantoprazole Sodium (Protonix Ec Tab) 20 mg PO DAILY [facility] Last Admin: 05/15/18 08:47 Dose: 20 mg Sevelamer HCl (Renagel) 800 mg PO TID [facility] Last Admin: 05/15/18 08:47 Dose: 800 mg Tobramycin/Dexamethasone (Tobradex 0.3%-0.1% Opht Oint) 1 appl OU TID [facility] Last Admin: 05/15/18 08:14 Dose: 1 applic - Labs Labs: - Additional Findings Additional findings: - Constitutional Appears: Confused, Chronically Ill Additional comments: more awake today - Head Exam Head Exam: ATRAUMATIC - Neck Exam Neck exam: Positive for: Full Rom Additional comments: supple - Respiratory Exam Additional comments: crackles at left base no wheezing - Cardiovascular Exam Cardiovascular Exam: RRR, +S1, +S2 - GI/Abdominal Exam GI & Abdominal Exam: Normal Bowel Sounds, Soft Additional comments: NT, Nd - Extremities Exam Additional comments: right arm AVF left arm edema and erythema less than yesterday, slightly softer - Neurological Exam Neurological exam: more awake Laboratory Results - last 72 hr 05/14/18 05/14/18 05/14/18 00:14 01:12 01:12 WBC 6.5 RBC 3.57 L Hgb 11.2 L Hct 34.7 MCV 97.1 MCH 31.3 H MCHC 32.3 L RDW 18.1 H Plt Count 172 MPV 9.0 Neut % (Auto) 77.6 H Lymph % (Auto) 10.9 L Villalba % (Auto) 10.7 H Eos % (Auto) 0.1 Baso % (Auto) 0.7 Neut # (Auto) 5.0 Lymph # (Auto) 0.7 L [place]ba # (Auto) 0.7 Eos # (Auto) 0.0 Baso # (Auto) 0.0 PT INR APTT pCO2 pO2 34 HCO3 ABG pH ABG Total CO2 ABG O2 Saturation ABG Base Excess Willie Test ABG Potassium VBG pH 7.39 VBG pCO2 47 VBG HCO3 26.2 VBG Total CO2 29.9 H VBG O2 Sat (Calc) 65.9 H VBG Base Excess 2.8 H VBG Potassium 3.6 A-a O2 Difference Sodium 133.0 132 Chloride 98.0 93 L Glucose 131 H Lactate 0.9 Mechanical Rate FiO2 21.0 Inspiratory BiPAP Expiratory BiPAP Potassium 4.4 Carbon Dioxide 24 Anion Gap 19 BUN 40 H Creatinine 5.4 H Est GFR ( Amer) 9 Est GFR (Non-Af Amer) 8 Random Glucose 122 H Calcium 8.9 Phosphorus 2.4 L Magnesium 2.3 Total Bilirubin 0.9 AST 45 H ALT 32 Alkaline Phosphatase 153 H Troponin I NT-Pro-B Natriuret Pep Total Protein 6.9 Albumin 3.7 Globulin 3.3 Albumin/Globulin Ratio 1.1 Procalcitonin Arterial Blood Potassium Venous Blood Potassium 3.6 Hep Bs Antigen Hep Bs Antibody Hep B Core IgM Ab Hepatitis C Antibody 05/14/18 05/14/18 05/14/18 01:12 02:15 05:42 WBC RBC Hgb Hct MCV MCH MCHC RDW Plt Count MPV Neut % (Auto) Lymph % (Auto) Villalba % (Auto) Eos % (Auto) Baso % (Auto) Neut # (Auto) Lymph # (Auto) Villalba # (Auto) Eos # (Auto) Baso # (Auto) PT 12.8 INR 1.2 APTT 31.1 pCO2 44 pO2 465 H 46 HCO3 27.1 ABG pH 7.41 ABG Total CO2 29.3 H ABG O2 Saturation 99.5 H ABG Base Excess 2.7 Willie Test Yes ABG Potassium 3.7 VBG pH 7.39 VBG pCO2 49 VBG HCO3 27.4 VBG Total CO2 31.2 H VBG O2 Sat (Calc) 84.3 H VBG Base Excess 3.7 H VBG Potassium 4.4 A-a O2 Difference 193.0 Sodium 129.0 L 133.0 Chloride 96.0 L 98.0 Glucose 133 H 131 H Lactate 0.7 0.8 Mechanical Rate 14 FiO2 100.0 60.0 Inspiratory BiPAP 12 Expiratory BiPAP 6 6 Potassium Carbon Dioxide Anion Gap BUN Creatinine Est GFR ( Amer) Est GFR (Non-Af Amer) Random Glucose Calcium Phosphorus Magnesium Total Bilirubin AST ALT Alkaline Phosphatase Troponin I NT-Pro-B Natriuret Pep Total Protein Albumin Globulin Albumin/Globulin Ratio Procalcitonin Arterial Blood Potassium 3.7 Venous Blood Potassium 4.4 Hep Bs Antigen Hep Bs Antibody Hep B Core IgM Ab Hepatitis C Antibody 05/14/18 05/14/18 05/14/18 06:45 06:45 11:30 WBC 4.3 L RBC 3.53 L Hgb 11.0 L Hct 34.5 MCV 97.8 MCH 31.2 H MCHC 31.9 L RDW 17.8 H Plt Count 121 L D MPV 8.4 Neut % (Auto) 67.0 Lymph % (Auto) 18.4 L Villalba % (Auto) 13.5 H Eos % (Auto) 0.4 Baso % (Auto) 0.7 Neut # (Auto) 2.9 Lymph # (Auto) 0.8 L Villal[place] # (Auto) 0.6 Eos # (Auto) 0.0 Baso # (Auto) 0.0 PT INR APTT pCO2 pO2 HCO3 ABG pH ABG Total CO2 ABG O2 Saturation ABG Base Excess Willie Test ABG Potassium VBG pH VBG pCO2 VBG HCO3 VBG Total CO2 VBG O2 Sat (Calc) VBG Base Excess VBG Potassium A-a O2 Difference Sodium 133 Chloride 96 L Glucose Lactate Mechanical Rate FiO2 Inspiratory BiPAP Expiratory BiPAP Potassium 4.1 Carbon Dioxide 26 Anion Gap 15 BUN 41 H Creatinine 5.7 H Est GFR ( Amer) 9 Est GFR (Non-Af Amer) 7 Random Glucose 117 H Calcium 8.4 Phosphorus Magnesium Total Bilirubin 0.6 AST 27 ALT 29 Alkaline Phosphatase 125 Troponin I 0.0250 NT-Pro-B Natriuret Pep 91183 H Total Protein 5.7 L Albumin 2.8 L D Globulin 2.9 Albumin/Globulin Ratio 1.0 Procalcitonin 0.37 Arterial Blood Potassium Venous Blood Potassium Hep Bs Antigen Hep Bs Antibody Hep B Core IgM Ab Hepatitis C Antibody 05/14/18 05/14/18 05/15/18 18:46 18:46 13:05 WBC 3.8 L RBC 3.28 L Hgb 10.1 L Hct 31.7 L MCV 96.8 MCH 30.9 MCHC 32.0 L RDW 18.1 H Plt Count 110 L MPV Neut % (Auto) Lymph % (Auto) Villalba % (Auto) Eos % (Auto) Baso % (Auto) Neut # (Auto) Lymph # (Auto) Villalba # (Auto) Eos # (Auto) Baso # (Auto) PT INR APTT pCO2 pO2 HCO3 ABG pH ABG Total CO2 ABG O2 Saturation ABG Base Excess Willie Test ABG Potassium VBG pH VBG pCO2 VBG HCO3 VBG Total CO2 VBG O2 Sat (Calc) VBG Base Excess VBG Potassium A-a O2 Difference Sodium Chloride Glucose Lactate Mechanical Rate FiO2 Inspiratory BiPAP Expiratory BiPAP Potassium Carbon Dioxide Anion Gap BUN Creatinine Est GFR ( Amer) Est GFR (Non-Af Amer) Random Glucose Calcium Phosphorus Magnesium Total Bilirubin AST ALT Alkaline Phosphatase Troponin I NT-Pro-B Natriuret Pep Total Protein Albumin Globulin Albumin/Globulin Ratio Procalcitonin Arterial Blood Potassium Venous Blood Potassium Hep Bs Antigen Negative Hep Bs Antibody Indeterminate Hep B Core IgM Ab Negative Hepatitis C Antibody Negative 05/15/18 13:05 WBC RBC Hgb Hct MCV MCH MCHC RDW Plt Count MPV Neut % (Auto) Lymph % (Auto) Villalba % (Auto) Eos % (Auto) Baso % (Auto) Neut # (Auto) Lymph # (Auto) Villalba # (Auto) Eos # (Auto) Baso # (Auto) PT INR APTT pCO2 pO2 HCO3 ABG pH ABG Total CO2 ABG O2 Saturation ABG Base Excess Willie Test ABG Potassium VBG pH VBG pCO2 VBG HCO3 VBG Total CO2 VBG O2 Sat (Calc) VBG Base Excess VBG Potassium A-a O2 Difference Sodium 137 Chloride 99 Glucose Lactate Mechanical Rate FiO2 Inspiratory BiPAP Expiratory BiPAP Potassium 3.6 Carbon Dioxide 27 Anion Gap 15 BUN 22 H Creatinine 4.1 H Est GFR ( Amer) 13 Est GFR (Non-Af Amer) 10 Random Glucose 77 Calcium 8.2 L Phosphorus Magnesium Total Bilirubin AST ALT Alkaline Phosphatase Troponin I NT-Pro-B Natriuret Pep Total Protein Albumin Globulin Albumin/Globulin Ratio Procalcitonin Arterial Blood Potassium Venous Blood Potassium Hep Bs Antigen Hep Bs Antibody Hep B Core IgM Ab Hepatitis C Antibody Microbiology 05/14/18 01:42 Blood Blood Culture - Preliminary NO GROWTH AFTER 24 HOURS 05/14/18 01:12 Blood Blood Culture - Preliminary NO GROWTH AFTER 24 HOURS Accession No. : [id number] Patient Name / ID : SHERRI AREVALO / [id number] Exam Date : 05/14/2018 09:02:02 ( Approved ) Study Comment : Sex / Age : F / 83Y Creator : Henry Alan MD Dictator : Henry Alan MD Chummer : Ship Superintendent : Hnery Alan MD Approver2 : Report Date : 05/14/2018 13:39:43 My Comment : Date of service: 05/14/2018 PROCEDURE: Left upper extremity HISTORY: Swelling of Left upper extremity COMPARISON: None TECHNIQUE: Real-time ultrasound scan of the veins with color flow, spectral waveform analysis and compression FINDINGS: Compressibility, augmentation and phases [place] documented/within normal limits. This includes the left internal jugular vein. Documentation of flow from the subclavian vein to the cephalic veins noted. IMPRESSION: No evidence of thrombosis left upper extremity venous system Assessment and Plan (1) ESRD (end stage renal disease) on dialysis Status: Acute (2) Pneumonia Status: Acute (3) Left arm cellulitis Status: Acute - Assessment and Plan (Free Text) Assessment: A/P- 83 year old [facility] resident female with ESRD on HD, dementia, CAd, PPm who was admitted with more dementia than usual and left arm cellulitis. improving afebrile blood cx- neg x 2 LLE US - no dvt as per report plan- advise to continue IV vancomycin post HD days. keep trough <15. advise to also apply warm compress to the LUE. d/c left arm peripheral IVL in the left arm. also advise to continue pt. on the IV cefepime for pneumonia treatment that was already initiated by the Hospitalist last night. day #2 monitor aspiration precautions. ICU time spent 40 minutes.
--- NOTE | 2018-05-15 12:10 | CARD ---
APPROVED REPORT Date of service: 05/14/2018 EXAM: Two-dimensional and M-mode echocardiogram with Doppler and color Doppler. Other Information Quality : AverageRhythm : Atrial Fibrillation INDICATION Atrial Fibrillation 2D DIMENSIONS IVSd1.24 (0.7-1.1cm)LVDd3.40 (3.9-5.9cm) LVOT Diameter1.61 (1.8-2.4cm)PWd1.07 (0.7-1.1cm) IVSs1.17 (0.8-1.2cm)LVDs3.10 (2.5-4.0cm) FS (%) 9.0 %PWs1.25 (0.8-1.2cm) M-Mode DIMENSIONS Left Atrium (MM)3.94 (2.5-4.0cm)IVSd0.91 (0.7-1.1cm) Aortic Root3.12 (2.2-3.7cm)LVDd5.44 (4.0-5.6cm) Aortic Cusp Exc.1.15 (1.5-2.0cm)PWd1.21 (0.7-1.1cm) IVSs1.88 cmFS (%) 26 % LVDs4.03 (2.0-3.8cm)PWs1.65 cm Aortic Valve AoV Peak Wgibutgt278.4cm/sAoV VTI48.7cmAO Peak GR.20mmHg LVOT Peak Zvscrfya19.7cm/sLVOT VTI14.66cmAO Mean GR.11mmHg TAYA (VMAX)0.32oa9NPC (VTI)0.43cm2 Mitral Valve MV E Rdwkeqta218.5cm/sMV DECEL [id number] A Sljwyxlr71.4cm/s MV FDX65iaE/A ratio5.0MVA (PHT)2.91cm2 TDI E/Lateral E'0.0E/Medial E'0.0 Tricuspid Valve TR Peak Egpqsnfd006sc/sRAP RQTWHOGP71ymTwTM Peak Gr.19mmHg FBCI20ofQk LEFT VENTRICLE The left ventricle is normal size. There is borderline to mild concentric left ventricular hypertrophy. Left ventricle systolic function is mildly impaired. The Ejection Fraction is 40-45%. There is global hypokinesis of the left ventricle. Cannot assess due to atrial fibrillation RIGHT VENTRICLE The right ventricle is borderline dilated. There is normal right ventricular wall thickness. The right ventricular systolic function is normal. ATRIA The left atrium is moderately dilated. The right atrium is mildly dilated. AORTIC VALVE The aortic valve is moderately to severely calcified. There is mild aortic regurgitation. There is severe valvular aortic stenosis. MITRAL VALVE The mitral valve is thickened but opens well. There is no mitral valve stenosis. Mitral regurgitation is trace to mild. TRICUSPID VALVE The tricuspid valve leaflets are thickened , but open well. There is moderate to severe tricuspid regurgitation. PULMONIC VALVE The pulmonic valve is not well visualized. There is mild pulmonic valvular regurgitation. GREAT VESSELS The aortic root is normal in size. The IVC is normal in size and collapses >50% with inspiration. PERICARDIAL EFFUSION The pericardium appears normal. <Conclusion> Cannot assess due to atrial fibrillation Left ventricle systolic function is mildly impaired. The Ejection Fraction is 40-45%. The aortic valve is moderately to severely calcified. There is severe valvular aortic stenosis. Mitral regurgitation is trace to mild. There is moderate to severe tricuspid regurgitation.
--- NOTE | 2018-05-15 12:14 | CARD ---
APPROVED REPORT Date of service: 05/14/2018 EKG Measurement Heart [id number] <Conclusion> Atrial fibrillation Right bundle branch block Abnormal ECG
[2018-05-15 13:17] LABS: HEMOGLOBIN 10.1 g/dL (12.0-16.0); MEAN CELL VOLUME 96.8 fl (81.0-99.0); MEAN CORPUSCULAR HEMOGLOBIN 30.9 pg (27.0-31.0); RBC 3.28 Mil/uL (3.80-5.20); RED CELL DISTRIBUTION WIDTH 18.1 % (11.5-14.5); WHITE BLOOD COUNT 3.8 K/uL (4.8-10.8)
[2018-05-15 13:42] LABS: CALCIUM 8.2 mg/dL (8.4-10.2)
--- NOTE | 2018-05-15 13:57 | CP.PCM.PN ---
Subjective - Date & Time of Evaluation Date of Evaluation: 05/15/18 Time of Evaluation: 13:55 - Subjective Subjective: Patient M bed awake and verbalizing much better than yesterday. no nausea or vomiting Objective - Vital Signs/Intake and Output Vital Signs (last 24 hours): Temp Pulse Resp BP Pulse Ox 98.4 F 95 H 21 129/57 L 100 05/15/18 12:08 05/15/18 12:08 05/15/18 12:08 05/15/18 12:08 05/15/18 12:08 - Medications Medications: Current Medications Acetaminophen (Tylenol 325 Mg Supp) 975 mg [place] ONCE PRN PRN Reason: Fever >100.4 F Acetaminophen (Tylenol 325mg Tab) 650 mg PO PRN PRN PRN Reason: Pain, Mild (1-3) Artificial Tears (Artificial Tears) 1 drop OU Q8H PRN PRN Reason: Dry eyes Atorvastatin Calcium (Lipitor) 10 mg PO HS [facility] Last Admin: 05/14/18 21:34 Dose: Not Given Benzonatate (Tessalon Perles) 100 mg PO TID PRN PRN Reason: Cough Calcium/Vitamin D (Oyster Shell Calcium/Vitamin D 500 Mg-200 Iu) 1 tab PO BID [facility] Last Admin: 05/15/18 08:46 Dose: 1 tab Clonidine HCl (Catapres) 0.2 mg PO Q8H [facility] Last Admin: 05/15/18 11:34 Dose: 0.2 mg Clopidogrel Bisulfate (Plavix) 75 mg PO DAILY [facility] Last Admin: 05/15/18 08:47 Dose: 75 mg Cyproheptadine HCl (Periactin) 4 mg PO BID [facility] Last Admin: 05/15/18 08:47 Dose: 4 mg Famotidine (Pepcid) 20 mg PO BID [facility] Last Admin: 05/15/18 08:47 Dose: 20 mg Guaifenesin/Codeine Phosphate (Robitussin W/Codeine) 10 ml PO Q4 PRN PRN Reason: Cough Last Admin: 05/15/18 02:22 Dose: 10 ml Guaifenesin/Dextromethorphan (Robitussin Dm) 5 ml PO QID PRN PRN Reason: Cough and congestion Last Admin: 05/15/18 08:48 Dose: 5 ml Heparin Sodium (Porcine) (Heparin) 5,000 units SC Q8 [facility] PRN Reason: Protocol Last Admin: 05/15/18 08:12 Dose: 5,000 units Hydralazine HCl (Apresoline) 50 mg PO Q6H [facility] Last Admin: 05/15/18 11:34 Dose: 50 mg Vancomycin HCl 1 gm/ Sodium (Chloride) 250 mls @ 125 mls/hr IVPB MWF [facility] PRN Reason: Protocol Last Admin: 05/15/18 08:15 Dose: 125 mls/hr Cefepime HCl 1 gm/ Sodium (Chloride) 100 mls @ 100 mls/hr IVPB DAILY [facility] PRN Reason: Protocol Last Admin: 05/15/18 08:12 Dose: 100 mls/hr Isosorbide Mononitrate (Imdur) 60 mg PO DAILY [facility] Last Admin: 05/15/18 08:46 Dose: 60 mg Lactulose (Enulose) 10 gm PO PRN PRN PRN Reason: Constipation Losartan Potassium (Cozaar) 100 mg PO DAILY [facility] Last Admin: 05/15/18 08:46 Dose: 100 mg Neomycin/Polymyxin/Bacitracin (Bacitracin/Neomycin/Polymyxin Opht Oint) 1 applic OS Q4 [facility] Last Admin: 05/15/18 13:04 Dose: 1 applic Pantoprazole Sodium (Protonix Ec Tab) 20 mg PO DAILY [facility] Last Admin: 05/15/18 08:47 Dose: 20 mg Sevelamer HCl (Renagel) 800 mg PO TID [facility] Last Admin: 05/15/18 13:11 Dose: 800 mg Tobramycin/Dexamethasone (Tobradex 0.3%-0.1% Opht Oint) 1 appl OU TID [facility] Last Admin: 05/15/18 13:11 Dose: 1 applic - Labs Labs: 05/15/18 13:05 05/15/18 13:05 PT 12.8 Seconds (9.8-13.1) 05/14/18 01:12 INR 1.2 (0.9-1.2) 05/14/18 01:12 APTT 31.1 Seconds (25.6-37.1) 05/14/18 01:12 - Constitutional Appears: No Acute Distress - Eye Exam Eye Exam: Conjunctival injection - ENT Exam ENT Exam: Mucous Membranes Moist - Neck Exam Neck Exam: absent: Lymphadenopathy - Respiratory Exam Respiratory Exam: NORMAL BREATHING PATTERN. absent: Chest Wall Tenderness - Cardiovascular Exam Cardiovascular Exam: absent: Gallop, JVD, Rubs - GI/Abdominal Exam GI & Abdominal Exam: Soft, Normal Bowel Sounds. absent: Guarding - Extremities Exam Extremities Exam: absent: Calf Tenderness - Back Exam Back Exam: absent: CVA tenderness (L), CVA tenderness (R) - Neurological Exam Neurological Exam: Alert - Psychiatric Exam Psychiatric exam: Flat Affect - Skin Skin Exam: absent: Cyanosis Assessment and Plan (1) ESRD (end stage renal disease) on dialysis Assessment & Plan: End stage renal disease patient completed hemodialysis yesterday with ultrafiltration 2500 mL Pneumonia patient receiving IV antibiotics [place] bilateral pleural effusion as noted on the x-ray. Rule out pulmonary emboli as recommended to go for CAT scan angiogram Continue monitor Status: Acute (2) Fever Status: Acute (3) Pneumonia Status: Acute (4) Sepsis Status: Acute
--- NOTE | 2018-05-15 17:57 | CP.PCM.PN ---
Subjective - Date & Time of Evaluation Date of Evaluation: 05/15/18 Time of Evaluation: 10:30 - Subjective Subjective: F/U PNA No SOB, no cough Objective - Vital Signs/Intake and Output Vital Signs (last 24 hours): Temp Pulse Resp BP Pulse Ox 97.1 F L 113 H 17 91/69 L 100 05/15/18 16:00 05/15/18 17:39 05/15/18 16:00 05/15/18 17:39 05/15/18 16:00 - Medications Medications: Current Medications Acetaminophen (Tylenol 325 Mg Supp) 975 mg [place] ONCE PRN PRN Reason: Fever >100.4 F Acetaminophen (Tylenol 325mg Tab) 650 mg PO PRN PRN PRN Reason: Pain, Mild (1-3) Artificial Tears (Artificial Tears) 1 drop OU Q8H PRN PRN Reason: Dry eyes Atorvastatin Calcium (Lipitor) 10 mg PO HS [facility] Last Admin: 05/14/18 21:34 Dose: Not Given Benzonatate (Tessalon Perles) 100 mg PO TID PRN PRN Reason: Cough Calcium/Vitamin D (Oyster Shell Calcium/Vitamin D 500 Mg-200 Iu) 1 tab PO BID [facility] Last Admin: 05/15/18 16:09 Dose: 1 tab Clonidine HCl (Catapres) 0.2 mg PO Q8H [facility] Last Admin: 05/15/18 17:39 Dose: Not Given Clopidogrel Bisulfate (Plavix) 75 mg PO DAILY [facility] Last Admin: 05/15/18 08:47 Dose: 75 mg Cyproheptadine HCl (Periactin) 4 mg PO BID [facility] Last Admin: 05/15/18 16:09 Dose: 4 mg Famotidine (Pepcid) 20 mg PO BID [facility] Last Admin: 05/15/18 16:09 Dose: 20 mg Guaifenesin/Codeine Phosphate (Robitussin W/Codeine) 10 ml PO Q4 PRN PRN Reason: Cough Last Admin: 05/15/18 02:22 Dose: 10 ml Guaifenesin/Dextromethorphan (Robitussin Dm) 5 ml PO QID PRN PRN Reason: Cough and congestion Last Admin: 05/15/18 16:10 Dose: 5 ml Heparin Sodium (Porcine) (Heparin) 5,000 units SC Q8 [facility] PRN Reason: Protocol Last Admin: 05/15/18 16:08 Dose: 5,000 units Hydralazine HCl (Apresoline) 25 mg PO Q6H [facility] Vancomycin HCl 1 gm/ Sodium (Chloride) 250 mls @ 125 mls/hr IVPB MWF [facility] PRN Reason: Protocol Last Admin: 05/15/18 08:15 Dose: 125 mls/hr Cefepime HCl 1 gm/ Sodium (Chloride) 100 mls @ 100 mls/hr IVPB DAILY [facility] PRN Reason: Protocol Last Admin: 05/15/18 08:12 Dose: 100 mls/hr Isosorbide Mononitrate (Imdur) 60 mg PO DAILY [facility] Last Admin: 05/15/18 08:46 Dose: 60 mg Lactulose (Enulose) 10 gm PO PRN PRN PRN Reason: Constipation Losartan Potassium (Cozaar) 100 mg PO DAILY [facility] Last Admin: 05/15/18 08:46 Dose: 100 mg Metoprolol Succinate (Toprol Xl) 25 mg PO DAILY [facility] Neomycin/Polymyxin/Bacitracin (Bacitracin/Neomycin/Polymyxin Opht Oint) 1 applic OS Q4 [facility] Last Admin: 05/15/18 16:08 Dose: 1 applic Pantoprazole Sodium (Protonix Ec Tab) 20 mg PO DAILY [facility] Last Admin: 05/15/18 08:47 Dose: 20 mg Sevelamer HCl (Renagel) 800 mg PO TID [facility] Last Admin: 05/15/18 16:09 Dose: 800 mg Tobramycin/Dexamethasone (Tobradex 0.3%-0.1% Opht Oint) 1 appl OU TID [facility] Last Admin: 05/15/18 16:09 Dose: 1 applic - Labs Labs: 05/15/18 13:05 05/15/18 13:05 PT 12.8 Seconds (9.8-13.1) 05/14/18 01:12 INR 1.2 (0.9-1.2) 05/14/18 01:12 APTT 31.1 Seconds (25.6-37.1) 05/14/18 01:12 - Constitutional Appears: Chronically Ill - Head Exam Head Exam: NORMAL INSPECTION - Eye Exam Additional comments: L eye with yellow secretion, Pupils reactive to light - ENT Exam ENT Exam: Mucous Membranes Moist - Neck Exam Neck Exam: Normal Inspection - Respiratory Exam Respiratory Exam: Decreased Breath Sounds (b/l) - Cardiovascular Exam Cardiovascular Exam: REGULAR RHYTHM Additional comments: PPM - GI/Abdominal Exam GI & Abdominal Exam: Soft, Normal Bowel Sounds - Extremities Exam Additional comments: Edema lower extremities R>L, L U/E swollen, R arm AV fistula - Back Exam Back Exam: NORMAL INSPECTION - Neurological Exam Additional comments: non verbal, no facial droop, move upper extremities, not following commands - Skin Skin Exam: Warm Assessment and Plan (1) Pneumonia Status: Acute (2) Pleural effusion Status: Acute - Assessment and Plan (Free Text) Plan: Continue Cefepime, Vanco , Duoneb , ESKD on Dialysis, AFib, , CHF overload
[2018-05-15] MEDS ORDERED: Metoprolol Succinate 25 mg XL Tab PO SCH (18:00)
[2018-05-16] MEDS: Bacitracin/Neomycin/Polymyxin OPHT OINT OS SCH ×6 (02:46→21:00)
[2018-05-16] MEDS: guaiFENesin DM 100 mg-10 mg/5 ml UD PO PRN (02:55)
[2018-05-16 05:46] LABS: BASO % 1.1 % (0.0-2.0); EOS # 0.1 K/uL (0.0-0.7); EOS % 1.4 % (0.0-4.0); HEMOGLOBIN 10.2 g/dL (12.0-16.0); LYMPH # 0.4 K/uL (1.0-4.3); LYMPH % 9.8 % (20.0-40.0); MEAN CELL VOLUME 97.3 fl (81.0-99.0); MEAN CORPUSCULAR HEMOGLOBIN 31.1 pg (27.0-31.0); MEAN CORPUSCULAR HGB CONC 31.9 g/dL (33.0-37.0); MEAN PLATELET VOLUME 8.9 fl (7.2-11.7); MONO # 0.4 K/uL (0.0-0.8); NEUT # 2.8 K/uL (1.8-7.0); NEUT % 76.7 % (50.0-75.0); NRBC % 0.1 % (0.0-0.0); PLATELET COUNT 109 K/uL (130-400); RBC 3.27 Mil/uL (3.80-5.20); WHITE BLOOD COUNT 3.7 K/uL (4.8-10.8)
[2018-05-16 06:23] LABS: ALBUMIN 2.9 g/dL (3.5-5.0); CALCIUM 8.6 mg/dL (8.4-10.2)
[2018-05-16] MEDS: Calcium-Vit D 500 mg-200 Units Tab UD PO SCH ×2 (08:43→17:07)
[2018-05-16] MEDS: Albuterol-Ipratrop 3 mg / 0.5 (3 ml) UD INH PRN (08:46)
--- NOTE | 2018-05-16 09:01 | CP.PCM.PN ---
Subjective - Date & Time of Evaluation Date of Evaluation: 05/16/18 Time of Evaluation: 08:59 - Subjective Subjective: Patient in bed appears to be confused. Verbalizing at time but not understanding And not able to communicate with her Objective - Vital Signs/Intake and Output Vital Signs (last 24 hours): Temp Pulse Resp BP Pulse Ox 98.1 F 117 H 22 123/76 100 05/16/18 08:30 05/16/18 08:30 05/16/18 08:30 05/16/18 08:30 05/16/18 08:30 - Medications Medications: Current Medications Acetaminophen (Tylenol 325 Mg Supp) 975 mg [place] ONCE PRN PRN Reason: Fever >100.4 F Acetaminophen (Tylenol 325mg Tab) 650 mg PO PRN PRN PRN Reason: Pain, Mild (1-3) Albuterol/Ipratropium (Duoneb 3 Mg/0.5 Mg (3 Ml) Ud) 3 ml INH RQ6 PRN PRN Reason: Shortness of Breath Last Admin: 05/16/18 08:46 Dose: 3 ml Artificial Tears (Artificial Tears) 1 drop OU Q8H PRN PRN Reason: Dry eyes Atorvastatin Calcium (Lipitor) 10 mg PO HS [facility] Last Admin: 05/15/18 21:27 Dose: 10 mg Benzonatate (Tessalon Perles) 100 mg PO TID PRN PRN Reason: Cough Calcium/Vitamin D (Oyster Shell Calcium/Vitamin D 500 Mg-200 Iu) 1 tab PO BID [facility] Last Admin: 05/16/18 08:43 Dose: Not Given Carvedilol (Coreg) 3.125 mg PO Q12 [facility] Last Admin: 05/16/18 08:43 Dose: Not Given Clonidine HCl (Catapres) 0.2 mg PO Q8H [facility] Last Admin: 05/16/18 02:47 Dose: 0.2 mg Clopidogrel Bisulfate (Plavix) 75 mg PO DAILY [facility] Last Admin: 05/15/18 08:47 Dose: 75 mg Cyproheptadine HCl (Periactin) 4 mg PO BID [facility] Last Admin: 05/16/18 08:43 Dose: Not Given Famotidine (Pepcid) 20 mg PO BID [facility] Last Admin: 05/16/18 08:43 Dose: Not Given Guaifenesin/Codeine Phosphate (Robitussin W/Codeine) 10 ml PO Q4 PRN PRN Reason: Cough Last Admin: 05/15/18 23:55 Dose: 10 ml Guaifenesin/Dextromethorphan (Robitussin Dm) 5 ml PO QID PRN PRN Reason: Cough and congestion Last Admin: 05/16/18 02:55 Dose: 5 ml Heparin Sodium (Porcine) (Heparin) 5,000 units SC Q8 [facility] PRN Reason: Protocol Last Admin: 05/16/18 02:47 Dose: 5,000 units Hydralazine HCl (Apresoline) 25 mg PO Q6H [facility] Last Admin: 05/15/18 23:22 Dose: 25 mg Vancomycin HCl 1 gm/ Sodium (Chloride) 250 mls @ 125 mls/hr IVPB MWF [facility] PRN Reason: Protocol Last Admin: 05/15/18 08:15 Dose: 125 mls/hr Cefepime HCl 1 gm/ Sodium (Chloride) 100 mls @ 100 mls/hr IVPB DAILY [facility] PRN Reason: Protocol Last Admin: 05/15/18 08:12 Dose: 100 mls/hr Isosorbide Mononitrate (Imdur) 60 mg PO DAILY [facility] Last Admin: 05/15/18 08:46 Dose: 60 mg Lactulose (Enulose) 10 gm PO PRN PRN PRN Reason: Constipation Losartan Potassium (Cozaar) 100 mg PO DAILY [facility] Last Admin: 05/15/18 08:46 Dose: 100 mg Neomycin/Polymyxin/Bacitracin (Bacitracin/Neomycin/Polymyxin Opht Oint) 1 applic OS Q4 [facility] Last Admin: 05/16/18 02:46 Dose: 1 applic Pantoprazole Sodium (Protonix Ec Tab) 20 mg PO DAILY [facility] Last Admin: 05/15/18 08:47 Dose: 20 mg Sevelamer HCl (Renagel) 800 mg PO TID [facility] Last Admin: 05/16/18 08:43 Dose: Not Given Tobramycin/Dexamethasone (Tobradex 0.3%-0.1% Opht Oint) 1 appl OU TID [facility] Last Admin: 05/15/18 16:09 Dose: 1 applic - Labs Labs: 05/16/18 05:00 05/16/18 05:00 PT 12.8 Seconds (9.8-13.1) 05/14/18 01:12 INR 1.2 (0.9-1.2) 05/14/18 01:12 APTT 31.1 Seconds (25.6-37.1) 05/14/18 01:12 - Constitutional Appears: No Acute Distress - Eye Exam Eye Exam: Conjunctival injection - ENT Exam ENT Exam: Mucous Membranes Moist - Neck Exam Neck Exam: absent: Lymphadenopathy - Respiratory Exam Respiratory Exam: Rhonchi, NORMAL BREATHING PATTERN. absent: Chest Wall Tenderness - Cardiovascular Exam Cardiovascular Exam: absent: Gallop, JVD, Rubs - GI/Abdominal Exam GI & Abdominal Exam: Soft, Normal Bowel Sounds - Extremities Exam Extremities Exam: absent: Calf Tenderness - Back Exam Back Exam: absent: CVA tenderness (L), CVA tenderness (R) - Neurological Exam Neurological Exam: Altered - Skin Skin Exam: absent: Cyanosis Assessment and Plan (1) ESRD (end stage renal disease) on dialysis Assessment & Plan: End stage renal disease. Patient about to have dialysis shortly as scheduled. Vital signs stable Pneumonia patient appears to be improving and responding to antibiotics. Antibiotics as per ID with the renal doses consideration. No deep vein thrombosis on the left upper arm as noted Status: Acute (2) Fever Status: Acute (3) Pneumonia Status: Acute (4) Sepsis Status: Acute
--- NOTE | 2018-05-16 09:08 | CP.PCM.PN ---
Subjective - Date & Time of Evaluation Date of Evaluation: 05/16/18 Time of Evaluation: 08:50 - Subjective Subjective: Events over last 24 hrs noted, discussed with Dr. Higgins Has a central line Will have CT angio of chest today. Objective - Vital Signs/Intake and Output Vital Signs (last 24 hours): Temp Pulse Resp BP Pulse Ox 98.1 F 117 H 22 123/76 100 05/16/18 08:30 05/16/18 08:30 05/16/18 08:30 05/16/18 08:30 05/16/18 08:30 - Medications Medications: Current Medications Acetaminophen (Tylenol 325 Mg Supp) 975 mg [place] ONCE PRN PRN Reason: Fever >100.4 F Acetaminophen (Tylenol 325mg Tab) 650 mg PO PRN PRN PRN Reason: Pain, Mild (1-3) Albuterol/Ipratropium (Duoneb 3 Mg/0.5 Mg (3 Ml) Ud) 3 ml INH RQ6 PRN PRN Reason: Shortness of Breath Last Admin: 05/16/18 08:46 Dose: 3 ml Artificial Tears (Artificial Tears) 1 drop OU Q8H PRN PRN Reason: Dry eyes Atorvastatin Calcium (Lipitor) 10 mg PO HS [facility] Last Admin: 05/15/18 21:27 Dose: 10 mg Benzonatate (Tessalon Perles) 100 mg PO TID PRN PRN Reason: Cough Calcium/Vitamin D (Oyster Shell Calcium/Vitamin D 500 Mg-200 Iu) 1 tab PO BID [facility] Last Admin: 05/16/18 08:43 Dose: Not Given Carvedilol (Coreg) 3.125 mg PO Q12 [facility] Last Admin: 05/16/18 08:43 Dose: Not Given Clonidine HCl (Catapres) 0.2 mg PO Q8H [facility] Last Admin: 05/16/18 02:47 Dose: 0.2 mg Clopidogrel Bisulfate (Plavix) 75 mg PO DAILY [facility] Last Admin: 05/15/18 08:47 Dose: 75 mg Cyproheptadine HCl (Periactin) 4 mg PO BID [facility] Last Admin: 05/16/18 08:43 Dose: Not Given Famotidine (Pepcid) 20 mg PO BID [facility] Last Admin: 05/16/18 08:43 Dose: Not Given Guaifenesin/Codeine Phosphate (Robitussin W/Codeine) 10 ml PO Q4 PRN PRN Reason: Cough Last Admin: 05/15/18 23:55 Dose: 10 ml Guaifenesin/Dextromethorphan (Robitussin Dm) 5 ml PO QID PRN PRN Reason: Cough and congestion Last Admin: 05/16/18 02:55 Dose: 5 ml Heparin Sodium (Porcine) (Heparin) 5,000 units SC Q8 [facility] PRN Reason: Protocol Last Admin: 05/16/18 02:47 Dose: 5,000 units Hydralazine HCl (Apresoline) 25 mg PO Q6H [facility] Last Admin: 05/15/18 23:22 Dose: 25 mg Vancomycin HCl 1 gm/ Sodium (Chloride) 250 mls @ 125 mls/hr IVPB MWF [facility] PRN Reason: Protocol Last Admin: 05/15/18 08:15 Dose: 125 mls/hr Cefepime HCl 1 gm/ Sodium (Chloride) 100 mls @ 100 mls/hr IVPB DAILY [facility] PRN Reason: Protocol Last Admin: 05/15/18 08:12 Dose: 100 mls/hr Isosorbide Mononitrate (Imdur) 60 mg PO DAILY [facility] Last Admin: 05/15/18 08:46 Dose: 60 mg Lactulose (Enulose) 10 gm PO PRN PRN PRN Reason: Constipation Losartan Potassium (Cozaar) 100 mg PO DAILY [facility] Last Admin: 05/15/18 08:46 Dose: 100 mg Neomycin/Polymyxin/Bacitracin (Bacitracin/Neomycin/Polymyxin Opht Oint) 1 applic OS Q4 [facility] Last Admin: 05/16/18 02:46 Dose: 1 applic Pantoprazole Sodium (Protonix Ec Tab) 20 mg PO DAILY [facility] Last Admin: 05/15/18 08:47 Dose: 20 mg Sevelamer HCl (Renagel) 800 mg PO TID [facility] Last Admin: 05/16/18 08:43 Dose: Not Given Tobramycin/Dexamethasone (Tobradex 0.3%-0.1% Opht Oint) 1 appl OU TID [facility] Last Admin: 05/15/18 16:09 Dose: 1 applic - Labs Labs: 05/16/18 05:00 05/16/18 05:00 PT 12.8 Seconds (9.8-13.1) 05/14/18 01:12 INR 1.2 (0.9-1.2) 05/14/18 01:12 APTT 31.1 Seconds (25.6-37.1) 05/14/18 01:12
[2018-05-16] MEDS: Cefepime 1 GM in Sodium Chloride 0.9% 100 ML IVPB SCH (09:23)
[2018-05-16] MEDS: Tobramycin/Dexamethasone OPHT OINT OU SCH ×3 (09:26→17:04)
--- NOTE | 2018-05-16 09:31 | CP.PCM.PN ---
Subjective - Date & Time of Evaluation Date of Evaluation: 05/16/18 Time of Evaluation: 09:00 - Subjective Subjective: No fever Pt has intractable coughing periods of agitation and confusion - takes off her IV and Oxygen, soft wrist restraint applied prn denies CP no SOB tachycardic NPO for now until Swallow eval Pt is DNR Objective - Vital Signs/Intake and Output Vital Signs (last 24 hours): Temp Pulse Resp BP Pulse Ox 98.1 F 117 H 22 123/76 100 05/16/18 08:30 05/16/18 08:30 05/16/18 08:30 05/16/18 08:30 05/16/18 08:30 - Medications Medications: Current Medications Acetaminophen (Tylenol 325 Mg Supp) 975 mg MN ONCE PRN PRN Reason: Fever >100.4 F Acetaminophen (Tylenol 325mg Tab) 650 mg PO PRN PRN PRN Reason: Pain, Mild (1-3) Albuterol/Ipratropium (Duoneb 3 Mg/0.5 Mg (3 Ml) Ud) 3 ml INH RQ6 PRN PRN Reason: Shortness of Breath Last Admin: 05/16/18 08:46 Dose: 3 ml Artificial Tears (Artificial Tears) 1 drop OU Q8H PRN PRN Reason: Dry eyes Atorvastatin Calcium (Lipitor) 10 mg PO HS [facility] Last Admin: 05/15/18 21:27 Dose: 10 mg Benzonatate (Tessalon Perles) 100 mg PO TID PRN PRN Reason: Cough Calcium/Vitamin D (Oyster Shell Calcium/Vitamin D 500 Mg-200 Iu) 1 tab PO BID [facility] Last Admin: 05/16/18 08:43 Dose: Not Given Carvedilol (Coreg) 3.125 mg PO Q12 [facility] Last Admin: 05/16/18 08:43 Dose: Not Given Clonidine HCl (Catapres) 0.2 mg PO Q8H [facility] Last Admin: 05/16/18 09:21 Dose: Not Given Clopidogrel Bisulfate (Plavix) 75 mg PO DAILY [facility] Last Admin: 05/15/18 08:47 Dose: 75 mg Cyproheptadine HCl (Periactin) 4 mg PO BID [facility] Last Admin: 05/16/18 08:43 Dose: Not Given Guaifenesin/Codeine Phosphate (Robitussin W/Codeine) 10 ml PO Q4 PRN PRN Reason: Cough Last Admin: 05/15/18 23:55 Dose: 10 ml Guaifenesin/Dextromethorphan (Robitussin Dm) 5 ml PO QID PRN PRN Reason: Cough and congestion Last Admin: 05/16/18 02:55 Dose: 5 ml Heparin Sodium (Porcine) (Heparin) 5,000 units SC Q8 KRIS PRN Reason: Protocol Last Admin: 05/16/18 09:23 Dose: 5,000 units Hydralazine HCl (Apresoline) 25 mg PO Q6H [facility] Last Admin: 05/15/18 23:22 Dose: 25 mg Vancomycin HCl 1 gm/ Sodium (Chloride) 250 mls @ 125 mls/hr IVPB MWF [facility] PRN Reason: Protocol Last Admin: 05/15/18 08:15 Dose: 125 mls/hr Cefepime HCl 1 gm/ Sodium (Chloride) 100 mls @ 100 mls/hr IVPB DAILY [facility] PRN Reason: Protocol Last Admin: 05/16/18 09:23 Dose: 100 mls/hr Isosorbide Mononitrate (Imdur) 60 mg PO DAILY [facility] Last Admin: 05/15/18 08:46 Dose: 60 mg Lactulose (Enulose) 10 gm PO PRN PRN PRN Reason: Constipation Losartan Potassium (Cozaar) 100 mg PO DAILY [facility] Last Admin: 05/15/18 08:46 Dose: 100 mg Metoprolol Tartrate (Lopressor) 2.5 mg IVP Q6 [facility] Neomycin/Polymyxin/Bacitracin (Bacitracin/Neomycin/Polymyxin Opht Oint) 1 applic OS Q4 [facility] Last Admin: 05/16/18 09:21 Dose: 1 applic Pantoprazole Sodium (Protonix Inj) 40 mg IVP DAILY [facility] Sevelamer HCl (Renagel) 800 mg PO TID [facility] Last Admin: 05/16/18 08:43 Dose: Not Given Tobramycin/Dexamethasone (Tobradex 0.3%-0.1% Opht Oint) 1 appl OU TID [facility] Last Admin: 05/16/18 09:26 Dose: 1 applic - Labs Labs: 05/16/18 05:00 05/16/18 05:00 PT 12.8 Seconds (9.8-13.1) 05/14/18 01:12 INR 1.2 (0.9-1.2) 05/14/18 01:12 APTT 31.1 Seconds (25.6-37.1) 05/14/18 01:12 - Constitutional Appears: No Acute Distress, Chronically Ill - Head Exam Head Exam: NORMAL INSPECTION, NORMOCEPHALIC - Eye Exam Pupil Exam: NORMAL ACCOMODATION - ENT Exam ENT Exam: Mucous Membranes Moist, Normal External Ear Exam - Neck Exam Neck Exam: Full ROM. absent: Meningismus - Respiratory Exam Respiratory Exam: Rales, Rhonchi, NORMAL BREATHING PATTERN. absent: Wheezes, Respiratory Distress - Cardiovascular Exam Cardiovascular Exam: Tachycardia, REGULAR RHYTHM, +S1, +S2 - GI/Abdominal Exam GI & Abdominal Exam: Soft, Normal Bowel Sounds. absent: Tenderness - Extremities Exam Extremities Exam: Full ROM, Normal Capillary Refill, Pedal Edema. absent: Calf Tenderness - Back Exam Back Exam: absent: CVA tenderness (L), CVA tenderness (R) - Neurological Exam Neurological Exam: Alert, Awake Additional comments: oriented to person and place - Psychiatric Exam Psychiatric exam: Flat Affect - Skin Skin Exam: Dry, Normal Color, Warm Assessment and Plan - Assessment and Plan (Free Text) Assessment: 83 years old female residing at the [facility] with hx of HTN, CAD, Dementia and ESRD was sent in bec of change in mental status more demented than normal, with poor appetite along with swelling, of the left upper extremity. Pt has also been coughing. 1. Pneumonia , HAP prob bacterial Sepsis ruled out - cont IV vanco and Cefepime, dose Vanco each HD - Sputum c/s, Legionella, Mycoplasma : pending - Blood c/s: neg so far - ID and Pulm consulted 2. AMS due to Metabolic encephalopathy - Hemodialysis - Treat infection 3. Bilateral Pleural Effusion secondary to volume overload due to Renal Failure - Hemodialysis - pt received a dose of Lasix 4. A Fib with RVR - Consulted Dr Delgado cardiology- discussed case - rec to do CTA to r/o PE given elevated RV pressures -CTA Pulm : suboptimal stdy but no central/large PE - Cardiac monitoring - start low dose Coreg for rate control 5. Left upper extremity swelling , mild Cellulitis - Duplex US of left upper extremity: negative for DVT - ? lymphedema ( previous site of AV shunt???) - cont IV Vanco 6. Anasarca due to the renal failure - Hemodialysis 7. ESRD On HD - consult Dr Edwards Dis[facility] for Hemodialysis 8. HTN BP low normal decreased Hydralazine dose to 25 mg q 6 , hold for BP less than 120 systolic cont Imdur and Losartan while pt is NPO - ( need Swallow eval ) , will start Lopressor IV 9. Aortic Stenosis ECHO: EF=40-45% , severe , mod to severe TR and Calcified aortic valve - avoid too much decrease in preload - Cardio consulted #. DVT with subQ heparin #. Code Status: Full
--- NOTE | 2018-05-16 09:43 | PQF ---
PROVIDER RESPONSE TEXT: Sepsis ruled out REVIEWER QUERY TEXT: Clarification of Clinical Diagnostic Findings 2 queries: 1. Sepsis ruled in or Sepsis ruled out? 2. If Sepsis is ruled in :etiology? if known: or please document etiology unknown OR: Other explanation of clinical finding Pulse:129->127-.>122->138->114 Respirations: 20-.>26->18 WBC:6.5->4.3->3.8 left shift Blood Culture x 2: prelim: no growth after 24 hrs. 05/14 CXR: Bilateral lower lobe atelectasis and infiltrates and bilateral effusions. See the full repo rt in the EMR 05/[address]: Impression: Bilateral lower lobe atelectasis and/or infiltrates with moderate-size bi lateral effusions. See the full report in the EMR . ER:Clinical Impression :ESRD/ dialysis, Fever, Pneumonia, Sepsis ID consult::Asked to see this patient for left arm Cellulitis, rule out Sepsis; admitted with more De mentia than usual and left arm Cellulitis. In ED pt. found to have [id number] and B/l Pleural Effusio n and Pneumonia on cxr 05/15 Renal consult; dxs. include: ESRD , Sepsis, possible b/l Pneumonia, Fever IVAB'S, BIPAP The patient's Clinical Indicators include: XXXX Query created by: Anna Youssef on 05/15/2018 2:54 PM Electronically signed by: Laura Doran MD 05/16/2018 9:41 AM
[2018-05-16] MEDS: Metoprolol 1 mg/ml Inj IVP SCH ×3 (10:48→21:05)
--- NOTE | 2018-05-16 11:10 | CP.PCM.PN ---
Subjective - Date & Time of Evaluation Date of Evaluation: 05/16/18 Time of Evaluation: 11:10 - Subjective Subjective: ID Note- pt. seen and examined in ICU. getting HD currently. left arm edema much improved and the peripheral IVL was removed yesterday. as pr nurse has thick cough. Objective - Vital Signs/Intake and Output Vital Signs (last 24 hours): Temp Pulse Resp BP Pulse Ox 98.1 F 135 H 22 143/62 100 05/16/18 08:30 05/16/18 10:48 05/16/18 08:30 05/16/18 10:48 05/16/18 08:30 - Medications Medications: Current Medications Acetaminophen (Tylenol 325 Mg Supp) 975 mg [place] ONCE PRN PRN Reason: Fever >100.4 F Acetaminophen (Tylenol 325mg Tab) 650 mg PO PRN PRN PRN Reason: Pain, Mild (1-3) Albuterol/Ipratropium (Duoneb 3 Mg/0.5 Mg (3 Ml) Ud) 3 ml INH RQ6 PRN PRN Reason: Shortness of Breath Last Admin: 05/16/18 08:46 Dose: 3 ml Artificial Tears (Artificial Tears) 1 drop OU Q8H PRN PRN Reason: Dry eyes Atorvastatin Calcium (Lipitor) 10 mg PO HS [facility] Last Admin: 05/15/18 21:27 Dose: 10 mg Benzonatate (Tessalon Perles) 100 mg PO TID PRN PRN Reason: Cough Calcium/Vitamin D (Oyster Shell Calcium/Vitamin D 500 Mg-200 Iu) 1 tab PO BID [facility] Last Admin: 05/16/18 08:43 Dose: Not Given Carvedilol (Coreg) 3.125 mg PO Q12 [facility] Last Admin: 05/16/18 08:43 Dose: Not Given Clonidine HCl (Catapres) 0.2 mg PO Q8H [facility] Last Admin: 05/16/18 09:21 Dose: Not Given Clopidogrel Bisulfate (Plavix) 75 mg PO DAILY [facility] Last Admin: 05/15/18 08:47 Dose: 75 mg Cyproheptadine HCl (Periactin) 4 mg PO BID [facility] Last Admin: 05/16/18 08:43 Dose: Not Given Guaifenesin/Codeine Phosphate (Robitussin W/Codeine) 10 ml PO Q4 PRN PRN Reason: Cough Last Admin: 05/15/18 23:55 Dose: 10 ml Guaifenesin/Dextromethorphan (Robitussin Dm) 5 ml PO QID PRN PRN Reason: Cough and congestion Last Admin: 05/16/18 02:55 Dose: 5 ml Heparin Sodium (Porcine) (Heparin) 5,000 units SC Q8 [facility] PRN Reason: Protocol Last Admin: 05/16/18 09:23 Dose: 5,000 units Hydralazine HCl (Apresoline) 25 mg PO Q6H [facility] Last Admin: 05/15/18 23:22 Dose: 25 mg Vancomycin HCl 1 gm/ Sodium (Chloride) 250 mls @ 125 mls/hr IVPB MWF [facility] PRN Reason: Protocol Last Admin: 05/15/18 08:15 Dose: 125 mls/hr Cefepime HCl 1 gm/ Sodium (Chloride) 100 mls @ 100 mls/hr IVPB DAILY [facility] PRN Reason: Protocol Last Admin: 05/16/18 09:23 Dose: 100 mls/hr Isosorbide Mononitrate (Imdur) 60 mg PO DAILY [facility] Last Admin: 05/15/18 08:46 Dose: 60 mg Lactulose (Enulose) 10 gm PO PRN PRN PRN Reason: Constipation Losartan Potassium (Cozaar) 100 mg PO DAILY [facility] Last Admin: 05/15/18 08:46 Dose: 100 mg Metoprolol Tartrate (Lopressor) 2.5 mg IVP Q6 [facility] Last Admin: 05/16/18 10:48 Dose: 2.5 mg Neomycin/Polymyxin/Bacitracin (Bacitracin/Neomycin/Polymyxin Opht Oint) 1 applic OS Q4 [facility] Last Admin: 05/16/18 09:21 Dose: 1 applic Pantoprazole Sodium (Protonix Inj) 40 mg IVP DAILY [facility] Last Admin: 05/16/18 10:50 Dose: 40 mg Sevelamer HCl (Renagel) 800 mg PO TID [facility] Last Admin: 05/16/18 08:43 Dose: Not Given Tobramycin/Dexamethasone (Tobradex 0.3%-0.1% Opht Oint) 1 appl OU TID [facility] Last Admin: 05/16/18 09:26 Dose: 1 applic - Labs Labs: - Additional Findings Additional findings: - Constitutional Appears: Confused, Chronically Ill Additional comments: more awake today - Head Exam Head Exam: ATRAUMATIC - Neck Exam Neck exam: Positive for: Full Rom Additional comments: supple - Respiratory Exam Additional comments: crackles at left base no wheezing - Cardiovascular Exam Cardiovascular Exam: RRR, +S1, +S2 - GI/Abdominal Exam GI & Abdominal Exam: Normal Bowel Sounds, Soft Additional comments: NT, Nd - Extremities Exam Additional comments: right arm AVF left arm edema and erythema ls much improved. - Neurological Exam Neurological exam: more awake Laboratory Results - last 72 hr 05/14/18 05/14/18 05/14/18 00:14 01:12 01:12 WBC 6.5 RBC 3.57 L Hgb 11.2 L Hct 34.7 MCV 97.1 MCH 31.3 H MCHC 32.3 L RDW 18.1 H Plt Count 172 MPV 9.0 Neut % (Auto) 77.6 H Lymph % (Auto) 10.9 L [place] % (Auto) 10.7 H Eos % (Auto) 0.1 Baso % (Auto) 0.7 Neut # (Auto) 5.0 Lymph # (Auto) 0.7 L [place] # (Auto) 0.7 Eos # (Auto) 0.0 Baso # (Auto) 0.0 Neutrophils % (Manual) Lymphocytes % (Manual) Monocytes % (Manual) Eosinophils % (Manual) Platelet Estimate Hypochromasia (manual) Anisocytosis (manual) Target Cells Tear Drop Cells Ovalocytes PT INR APTT pCO2 pO2 34 HCO3 ABG pH ABG Total CO2 ABG O2 Saturation ABG Base Excess Willie Test ABG Potassium VBG pH 7.39 VBG pCO2 47 VBG HCO3 26.2 VBG Total CO2 29.9 H VBG O2 Sat (Calc) 65.9 H VBG Base Excess 2.8 H VBG Potassium 3.6 A-a O2 Difference Sodium 133.0 132 Chloride 98.0 93 L Glucose 131 H Lactate 0.9 Mechanical Rate FiO2 21.0 Inspiratory BiPAP Expiratory BiPAP Potassium 4.4 Carbon Dioxide 24 Anion Gap 19 BUN 40 H Creatinine 5.4 H Est GFR ( Amer) 9 Est GFR (Non-Af Amer) 8 Random Glucose 122 H Calcium 8.9 Phosphorus 2.4 L Magnesium 2.3 Total Bilirubin 0.9 AST 45 H ALT 32 Alkaline Phosphatase 153 H Troponin I NT-Pro-B Natriuret Pep Total Protein 6.9 Albumin 3.7 Globulin 3.3 Albumin/Globulin Ratio 1.1 Procalcitonin Arterial Blood Potassium Venous Blood Potassium 3.6 Vancomycin Trough Hep Bs Antigen Hep Bs Antibody Hep B Core IgM Ab Hepatitis C Antibody 05/14/18 05/14/18 05/14/18 01:12 02:15 05:42 WBC RBC Hgb Hct MCV MCH MCHC RDW Plt Count MPV Neut % (Auto) Lymph % (Auto) [place] % (Auto) Eos % (Auto) Baso % (Auto) Neut # (Auto) Lymph # (Auto) [place] # (Auto) Eos # (Auto) Baso # (Auto) Neutrophils % (Manual) Lymphocytes % (Manual) Monocytes % (Manual) Eosinophils % (Manual) Platelet Estimate Hypochromasia (manual) Anisocytosis (manual) Target Cells Tear Drop Cells Ovalocytes PT 12.8 INR 1.2 APTT 31.1 pCO2 44 pO2 465 H 46 HCO3 27.1 ABG pH 7.41 ABG Total CO2 29.3 H ABG O2 Saturation 99.5 H ABG Base Excess 2.7 Willie Test Yes ABG Potassium 3.7 VBG pH 7.39 VBG pCO2 49 VBG HCO3 27.4 VBG Total CO2 31.2 H VBG O2 Sat (Calc) 84.3 H VBG Base Excess 3.7 H VBG Potassium 4.4 A-a O2 Difference 193.0 Sodium 129.0 L 133.0 Chloride 96.0 L 98.0 Glucose 133 H 131 H Lactate 0.7 0.8 Mechanical Rate 14 FiO2 100.0 60.0 Inspiratory BiPAP 12 Expiratory BiPAP 6 6 Potassium Carbon Dioxide Anion Gap BUN Creatinine Est GFR ( Amer) Est GFR (Non-Af Amer) Random Glucose Calcium Phosphorus Magnesium Total Bilirubin AST ALT Alkaline Phosphatase Troponin I NT-Pro-B Natriuret Pep Total Protein Albumin Globulin Albumin/Globulin Ratio Procalcitonin Arterial Blood Potassium 3.7 Venous Blood Potassium 4.4 Vancomycin Trough Hep Bs Antigen Hep Bs Antibody Hep B Core IgM Ab Hepatitis C Antibody 05/14/18 05/14/18 05/14/18 06:45 06:45 11:30 WBC 4.3 L RBC 3.53 L Hgb 11.0 L Hct 34.5 MCV 97.8 MCH 31.2 H MCHC 31.9 L RDW 17.8 H Plt Count 121 L D MPV 8.4 Neut % (Auto) 67.0 Lymph % (Auto) 18.4 L [place] % (Auto) 13.5 H Eos % (Auto) 0.4 Baso % (Auto) 0.7 Neut # (Auto) 2.9 Lymph # (Auto) 0.8 L [place] # (Auto) 0.6 Eos # (Auto) 0.0 Baso # (Auto) 0.0 Neutrophils % (Manual) Lymphocytes % (Manual) Monocytes % (Manual) Eosinophils % (Manual) Platelet Estimate Hypochromasia (manual) Anisocytosis (manual) Target Cells Tear Drop Cells Ovalocytes PT INR APTT pCO2 pO2 HCO3 ABG pH ABG Total CO2 ABG O2 Saturation ABG Base Excess Willie Test ABG Potassium VBG pH VBG pCO2 VBG HCO3 VBG Total CO2 VBG O2 Sat (Calc) VBG Base Excess VBG Potassium A-a O2 Difference Sodium 133 Chloride 96 L Glucose Lactate Mechanical Rate FiO2 Inspiratory BiPAP Expiratory BiPAP Potassium 4.1 Carbon Dioxide 26 Anion Gap 15 BUN 41 H Creatinine 5.7 H Est GFR ( Amer) 9 Est GFR (Non-Af Amer) 7 Random Glucose 117 H Calcium 8.4 Phosphorus Magnesium Total Bilirubin 0.6 AST 27 ALT 29 Alkaline Phosphatase 125 Troponin I 0.0250 NT-Pro-B Natriuret Pep 16653 H Total Protein 5.7 L Albumin 2.8 L D Globulin 2.9 Albumin/Globulin Ratio 1.0 Procalcitonin 0.37 Arterial Blood Potassium Venous Blood Potassium Vancomycin Trough Hep Bs Antigen Hep Bs Antibody Hep B Core IgM Ab Hepatitis C Antibody 05/14/18 05/14/18 05/15/18 18:46 18:46 13:05 WBC 3.8 L RBC 3.28 L Hgb 10.1 L Hct 31.7 L MCV 96.8 MCH 30.9 MCHC 32.0 L RDW 18.1 H Plt Count 110 L MPV Neut % (Auto) Lymph % (Auto) [place] % (Auto) Eos % (Auto) Baso % (Auto) Neut # (Auto) Lymph # (Auto) [place] # (Auto) Eos # (Auto) Baso # (Auto) Neutrophils % (Manual) Lymphocytes % (Manual) Monocytes % (Manual) Eosinophils % (Manual) Platelet Estimate Hypochromasia (manual) Anisocytosis (manual) Target Cells Tear Drop Cells Ovalocytes PT INR APTT pCO2 pO2 HCO3 ABG pH ABG Total CO2 ABG O2 Saturation ABG Base Excess Willie Test ABG Potassium VBG pH VBG pCO2 VBG HCO3 VBG Total CO2 VBG O2 Sat (Calc) VBG Base Excess VBG Potassium A-a O2 Difference Sodium Chloride Glucose Lactate Mechanical Rate FiO2 Inspiratory BiPAP Expiratory BiPAP Potassium Carbon Dioxide Anion Gap BUN Creatinine Est GFR ( Amer) Est GFR (Non-Af Amer) Random Glucose Calcium Phosphorus Magnesium Total Bilirubin AST ALT Alkaline Phosphatase Troponin I NT-Pro-B Natriuret Pep Total Protein Albumin Globulin Albumin/Globulin Ratio Procalcitonin Arterial Blood Potassium Venous Blood Potassium Vancomycin Trough Hep Bs Antigen Negative Hep Bs Antibody Indeterminate Hep B Core IgM Ab Negative Hepatitis C Antibody Negative 05/15/18 05/16/18 05/16/18 13:05 05:00 05:00 WBC 3.7 L RBC 3.27 L Hgb 10.2 L Hct 31.9 L MCV 97.3 MCH 31.1 H MCHC 31.9 L RDW 18.0 H Plt Count 109 L MPV 8.9 Neut % (Auto) 76.7 H Lymph % (Auto) 9.8 L [place] % (Auto) 11.0 H Eos % (Auto) 1.4 Baso % (Auto) 1.1 Neut # (Auto) 2.8 Lymph # (Auto) 0.4 L [place] # (Auto) 0.4 Eos # (Auto) 0.1 Baso # (Auto) 0.0 Neutrophils % (Manual) 84 H Lymphocytes % (Manual) 6 L Monocytes % (Manual) 8 Eosinophils % (Manual) 2 Platelet Estimate Decreased L Hypochromasia (manual) Slight Anisocytosis (manual) Slight Target Cells Slight Tear Drop Cells Slight Ovalocytes Slight PT INR APTT pCO2 pO2 HCO3 ABG pH ABG Total CO2 ABG O2 Saturation ABG Base Excess Willie Test ABG Potassium VBG pH VBG pCO2 VBG HCO3 VBG Total CO2 VBG O2 Sat (Calc) VBG Base Excess VBG Potassium A-a O2 Difference Sodium 137 Chloride 99 Glucose Lactate Mechanical Rate FiO2 Inspiratory BiPAP Expiratory BiPAP Potassium 3.6 Carbon Dioxide 27 Anion Gap 15 BUN 22 H Creatinine 4.1 H Est GFR ( Amer) 13 Est GFR (Non-Af Amer) 10 Random Glucose 77 Calcium 8.2 L Phosphorus Magnesium Total Bilirubin AST ALT Alkaline Phosphatase Troponin I NT-Pro-B Natriuret Pep Total Protein Albumin Globulin Albumin/Globulin Ratio Procalcitonin Arterial Blood Potassium Venous Blood Potassium Vancomycin Trough 34.0 H Hep Bs Antigen Hep Bs Antibody Hep B Core IgM Ab Hepatitis C Antibody 05/16/18 05:00 WBC RBC Hgb Hct MCV MCH MCHC RDW Plt Count MPV Neut % (Auto) Lymph % (Auto) [place] % (Auto) Eos % (Auto) Baso % (Auto) Neut # (Auto) Lymph # (Auto) [place] # (Auto) Eos # (Auto) Baso # (Auto) Neutrophils % (Manual) Lymphocytes % (Manual) Monocytes % (Manual) Eosinophils % (Manual) Platelet Estimate Hypochromasia (manual) Anisocytosis (manual) Target Cells Tear Drop Cells Ovalocytes PT INR APTT pCO2 pO2 HCO3 ABG pH ABG Total CO2 ABG O2 Saturation ABG Base Excess Willie Test ABG Potassium VBG pH VBG pCO2 VBG HCO3 VBG Total CO2 VBG O2 Sat (Calc) VBG Base Excess VBG Potassium A-a O2 Difference Sodium 137 Chloride 100 Glucose Lactate Mechanical Rate FiO2 Inspiratory BiPAP Expiratory BiPAP Potassium 4.1 Carbon Dioxide 24 Anion Gap 17 BUN 28 H Creatinine 5.0 H Est GFR ( Amer) 10 Est GFR (Non-Af Amer) 8 Random Glucose 65 Calcium 8.6 Phosphorus Magnesium Total Bilirubin 0.8 AST 43 H D ALT 34 Alkaline Phosphatase 120 Troponin I NT-Pro-B Natriuret Pep Total Protein 5.8 L Albumin 2.9 L Globulin 2.8 Albumin/Globulin Ratio 1.0 Procalcitonin Arterial Blood Potassium Venous Blood Potassium Vancomycin Trough Hep Bs Antigen Hep Bs Antibody Hep B Core IgM Ab Hepatitis C Antibody Microbiology 05/15/18 12:30 Blood-Venous Blood Culture - Preliminary NO GROWTH AFTER 24 HOURS 05/14/18 01:42 Blood Blood Culture - Preliminary NO GROWTH AFTER 48 HOURS 05/14/18 01:12 Blood Blood Culture - Preliminary NO GROWTH AFTER 48 HOURS 05/14/18 11:10 Nose MRSA Culture (Admit) - Final MRSA NOT DETECTED Accession No. : [id number] Patient Name / ID : SHERRI AREVALO / [id number] Exam Date : 05/16/2018 13:05:42 ( Approved ) Study Comment : Sex / Age : F / 83Y Creator : Som Cisneros MD Dictator : Som Cisneros MD Apparel Stock Checker : Quality Systems Specialist : Som Cisneros MD Approver2 : Report Date : 05/16/2018 14:03:53 My Comment : Date of service: 05/16/2018 PROCEDURE: CT Chest with contrast (Pulmonary Angiogram) HISTORY: R/O PE COMPARISON: Comparison made with chest radiograph noncontrast CT scan chest 08/2018 TECHNIQUE: Axial computed tomography images were obtained of the chest in the pulmonary arterial phase of enhancement. Coronal and sagittal reformatted images were created and reviewed. Intravenous contrast dose: 50 cc Visipaque 320 Radiation dose: Total exam DLP = 392.68 mGy-cm. This CT exam was performed using one or more of the following dose reduction techniques: Automated exposure control, adjustment of the mA and/or kV according to patient size, and/or use of iterative reconstruction technique. FINDINGS: PULMONARY ARTERIES: Note evaluation of the pulmonary arteries is quite limited due to suboptimal injection/ enhancement of the pulmonary arteries has intravenous contrast material had could be injected through a pre-existing central line in the right femoral vein. No definitive evidence of central pulmonary emboli seen in the pulmonary trunk, right and left main or lobar branches. Note that the proximal subsegmental branches appear patent however the distal segmental and subsegmental branches are poorly seen particularly in the lower lung romero due to compression by bibasilar atelectatic changes and moderately large bilateral effusions. Pulmonary trunk measures approximately 2.6 cm. Distal of branches of the lower lobe bronchi contain material that could be mucous secretion or fluid AORTA: No acute findings. No thoracic aortic aneurysm. Ascending thoracic aorta approximately 3.0 cm and descending thoracic aorta measures approximately 2.2 cm. LUNGS: Unremarkable. No nodule, mass or pulmonary consolidation. PLEURAL SPACES: Unremarkable. No effusion or pneumothorax. HEART: Heart is mildly enlarged. No significant pericardial effusion. LYMPH NODES: No lymphadenopathy. BONES, CHEST WALL: Multilevel degenerative spondylosis of the thoracic spine. No acute compression fractures no retropulsed fragments. OTHER FINDINGS: Re- demonstrated is a elliptical shaped peripherally calcified lesion right lobe presumably located in the right lobe of the thyroid gland unchanged from prior study. Cholecystectomy clips again noted IMPRESSION: Suboptimal study due to the aforementioned limiting factors. No evidence of gross central pulmonary embolus however the distal segmental and subsegmental branches are not well delineated due particularly in the lower lung romero diffuse large bilateral effusions and bibasilar atelectasis. Assessment and Plan (1) ESRD (end stage renal disease) on dialysis Status: Acute (2) Pneumonia Status: Acute (3) Left arm cellulitis Status: Acute (4) Pleural effusion Status: Acute - Assessment and Plan (Free Text) Assessment: A/P- 83 year old [facility] resident female with ESRD on HD, dementia, CAd, PPm who was admitted with more dementia than usual and left arm cellulitis. improving afebrile blood cx- neg x 2 LLE US - no dvt as per report chest Ct - b/l large pleural effusions. plan- advise to continue IV vancomycin post HD days. keep trough <15. hold vanco since trough was high ( doubt it's ral trough). check another trough tomm. advise to also continue to apply warm compress to the LUEf or 1 more day. also advise to continue pt. on the IV cefepime for pneumonia treatment that was already initiated by the Hospitalist last night. day #3 monitor aspiration precautions. advise pulmonary evaluations for the large b/l pleural effusions/may need thoracentheis. ICU time spent 40 minutes.
[2018-05-16 12:21] LABS: EOSINOPHIL 2 % (0-7); LYMPHOCYTE 6 % (20-50); MONOCYTE 8 % (0-10); NEUTROPHIL 84 % (42-75); PLATELET ESTIMATE DECREASED (NORMAL); TOTAL CELLS COUNTED 100
[2018-05-16 12:23] LABS: ANISOCYTOSIS SLIGHT
[2018-05-16 12:24] LABS: HYPOCHROMIC SLIGHT; OVALOCYTES SLIGHT; TARGET CELLS SLIGHT; TEARDROP CELLS SLIGHT
[2018-05-16] MEDS ORDERED: methylPREDNISolone 75 MG in Sodium Chloride 0.9% 50 ML IV ONE (12:45)
[2018-05-16] MEDS ORDERED: Sodium Chloride 0.9% 50 ML IV ONE (13:09)
[2018-05-16] MEDS ORDERED: Iodixanol 320 MG/ML 100 ML BOTTLE IV ONE (13:09)
--- NOTE | 2018-05-16 14:05 | CT ---
Date of service: 05/16/2018 PROCEDURE: CT Chest with contrast (Pulmonary Angiogram) HISTORY: R/O PE COMPARISON: Comparison made with chest radiograph noncontrast CT scan chest 08/2018 TECHNIQUE: Axial computed tomography images were obtained of the chest in the pulmonary arterial phase of enhancement. Coronal and sagittal reformatted images were created and reviewed. Intravenous contrast dose: 50 cc Visipaque 320 Radiation dose: Total exam DLP = 392.68 mGy-cm. This CT exam was performed using one or more of the following dose reduction techniques: Automated exposure control, adjustment of the mA and/or kV according to patient size, and/or use of iterative reconstruction technique. FINDINGS: PULMONARY ARTERIES: Note evaluation of the pulmonary arteries is quite limited due to suboptimal injection/ enhancement of the pulmonary arteries has intravenous contrast material had could be injected through a pre-existing central line in the right femoral vein. No definitive evidence of central pulmonary emboli seen in the pulmonary trunk, right and left main or lobar branches. Note that the proximal subsegmental branches appear patent however the distal segmental and subsegmental branches are poorly seen particularly in the lower lung romero due to compression by bibasilar atelectatic changes and moderately large bilateral effusions. Pulmonary trunk measures approximately 2.6 cm. Distal of branches of the lower lobe bronchi contain material that could be mucous secretion or fluid AORTA: No acute findings. No thoracic aortic aneurysm. Ascending thoracic aorta approximately 3.0 cm and descending thoracic aorta measures approximately 2.2 cm. LUNGS: Unremarkable. No nodule, mass or pulmonary consolidation. PLEURAL SPACES: Unremarkable. No effusion or pneumothorax. HEART: Heart is mildly enlarged. No significant pericardial effusion. LYMPH NODES: No lymphadenopathy. BONES, CHEST WALL: Multilevel degenerative spondylosis of the thoracic spine. No acute compression fractures no retropulsed fragments. OTHER FINDINGS: Re- demonstrated is a elliptical shaped peripherally calcified lesion right lobe presumably located in the right lobe of the thyroid gland unchanged from prior study. Cholecystectomy clips again noted IMPRESSION: Suboptimal study due to the aforementioned limiting factors. No evidence of gross central pulmonary embolus however the distal segmental and subsegmental branches are not well delineated due particularly in the lower lung romero diffuse large bilateral effusions and bibasilar atelectasis.
--- NOTE | 2018-05-16 19:56 | CP.PCM.PN ---
Subjective - Date & Time of Evaluation Date of Evaluation: 05/16/18 Time of Evaluation: 12:45 - Subjective Subjective: F/U PNA seen in ICU, no SOB, cough paroxismal at times reported by nurses, O2 NC POx 97% Objective - Vital Signs/Intake and Output Vital Signs (last 24 hours): Temp Pulse Resp BP Pulse Ox 98.1 F 130 H 29 H 162/48 H 98 05/16/18 16:00 05/16/18 17:06 05/16/18 16:00 05/16/18 17:06 05/16/18 17:00 Intake and Output: 05/16/18 05/17/18 18:59 06:59 Intake Total 100 Output Total 1999 Balance -1900 - Medications Medications: Current Medications Acetaminophen (Tylenol 325 Mg Supp) 975 mg [place] ONCE PRN PRN Reason: Fever >100.4 F Acetaminophen (Tylenol 325mg Tab) 650 mg PO PRN PRN PRN Reason: Pain, Mild (1-3) Albuterol/Ipratropium (Duoneb 3 Mg/0.5 Mg (3 Ml) Ud) 3 ml INH RQ6 PRN PRN Reason: Shortness of Breath Last Admin: 05/16/18 08:46 Dose: 3 ml Artificial Tears (Artificial Tears) 1 drop OU Q8H PRN PRN Reason: Dry eyes Atorvastatin Calcium (Lipitor) 10 mg PO HS [facility] Last Admin: 05/15/18 21:27 Dose: 10 mg Benzonatate (Tessalon Perles) 100 mg PO TID PRN PRN Reason: Cough Bisacodyl (Dulcolax) 10 mg [place] ONCE ONE Stop: 05/16/18 20:01 Calcium/Vitamin D (Oyster Shell Calcium/Vitamin D 500 Mg-200 Iu) 1 tab PO BID [facility] Last Admin: 05/16/18 17:07 Dose: Not Given Carvedilol (Coreg) 3.125 mg PO Q12 [facility] Last Admin: 05/16/18 08:43 Dose: Not Given Clonidine HCl (Catapres) 0.2 mg PO Q8H [facility] Last Admin: 05/16/18 17:05 Dose: Not Given Clopidogrel Bisulfate (Plavix) 75 mg PO DAILY [facility] Last Admin: 05/16/18 12:21 Dose: Not Given Cyproheptadine HCl (Periactin) 4 mg PO BID [facility] Last Admin: 05/16/18 17:08 Dose: Not Given Guaifenesin/Codeine Phosphate (Robitussin W/Codeine) 10 ml PO Q4 PRN PRN Reason: Cough Last Admin: 05/15/18 23:55 Dose: 10 ml Guaifenesin/Dextromethorphan (Robitussin Dm) 5 ml PO QID PRN PRN Reason: Cough and congestion Last Admin: 05/16/18 02:55 Dose: 5 ml Heparin Sodium (Porcine) (Heparin) 5,000 units SC Q8 [facility] PRN Reason: Protocol Last Admin: 05/16/18 17:05 Dose: 5,000 units Hydralazine HCl (Apresoline) 25 mg PO Q6H [facility] Last Admin: 05/16/18 17:07 Dose: Not Given Vancomycin HCl 1 gm/ Sodium (Chloride) 250 mls @ 125 mls/hr IVPB MWF [facility] PRN Reason: Protocol Last Admin: 05/15/18 08:15 Dose: 125 mls/hr Cefepime HCl 1 gm/ Sodium (Chloride) 100 mls @ 100 mls/hr IVPB DAILY [facility] PRN Reason: Protocol Last Admin: 05/16/18 09:23 Dose: 100 mls/hr Isosorbide Mononitrate (Imdur) 60 mg PO DAILY [facility] Last Admin: 05/16/18 12:21 Dose: Not Given Lactulose (Enulose) 10 gm PO PRN PRN PRN Reason: Constipation Losartan Potassium (Cozaar) 100 mg PO DAILY [facility] Last Admin: 05/16/18 12:20 Dose: Not Given Metoprolol Tartrate (Lopressor) 2.5 mg IVP Q6 [facility] Last Admin: 05/16/18 17:06 Dose: 2.5 mg Neomycin/Polymyxin/Bacitracin (Bacitracin/Neomycin/Polymyxin Opht Oint) 1 applic OS Q4 [facility] Last Admin: 05/16/18 17:04 Dose: 1 applic Pantoprazole Sodium (Protonix Inj) 40 mg IVP DAILY [facility] Last Admin: 05/16/18 10:50 Dose: 40 mg Sevelamer HCl (Renagel) 800 mg PO TID [facility] Last Admin: 05/16/18 17:08 Dose: Not Given Tobramycin/Dexamethasone (Tobradex 0.3%-0.1% Opht Oint) 1 appl OU TID [facility] Last Admin: 05/16/18 17:04 Dose: 1 applic - Labs Labs: 05/16/18 05:00 05/16/18 05:00 PT 12.8 Seconds (9.8-13.1) 05/14/18 01:12 INR 1.2 (0.9-1.2) 05/14/18 01:12 APTT 31.1 Seconds (25.6-37.1) 05/14/18 01:12 - Constitutional Appears: Chronically Ill - Head Exam Head Exam: NORMAL INSPECTION - Eye Exam Eye Exam: PERRL Additional comments: L eye with yellow secretion. Pupils reacting to light - ENT Exam ENT Exam: Mucous Membranes Moist - Neck Exam Neck Exam: Normal Inspection - Respiratory Exam Respiratory Exam: Decreased Breath Sounds (b/l) - Cardiovascular Exam Cardiovascular Exam: REGULAR RHYTHM Additional comments: PPM - GI/Abdominal Exam GI & Abdominal Exam: Soft, Normal Bowel Sounds - Extremities Exam Additional comments: LUE edema and erythema improved, R arm AVF - Back Exam Back Exam: NORMAL INSPECTION - Neurological Exam Neurological Exam: Awake Additional comments: non verbal ,not following commands, limited movements all extremities - Skin Skin Exam: Warm Assessment and Plan (1) Pneumonia Status: Acute (2) Pleural effusion Status: Acute - Assessment and Plan (Free Text) Plan: Vanco on hold due to high level. Continue Cefpime, Duoneb, CT Chest no gross central P/E, large B/L pleural effusions and bibasilar atelectasis 2nd to CHF , ESKD overload, may difficult evaluation of lung romero for PNA , Patient on Plavixx, f/u with Cardiology, Patient may need IR Thoracentesis
[2018-05-17] MEDS: Bacitracin/Neomycin/Polymyxin OPHT OINT OS SCH ×6 (01:18→21:00)
[2018-05-17 05:35] LABS: BASO % 0.1 % (0.0-2.0); HEMOGLOBIN 11.1 g/dL (12.0-16.0); LYMPH # 0.3 K/uL (1.0-4.3); LYMPH % 6.3 % (20.0-40.0); MEAN CELL VOLUME 98.4 fl (81.0-99.0); MEAN CORPUSCULAR HGB CONC 31.5 g/dL (33.0-37.0); MEAN PLATELET VOLUME 9.2 fl (7.2-11.7); MONO # 0.4 K/uL (0.0-0.8); MONO % 6.8 % (0.0-10.0); NEUT # 4.7 K/uL (1.8-7.0); NEUT % 86.8 % (50.0-75.0); NRBC % 0.1 % (0.0-0.0); RBC 3.59 Mil/uL (3.80-5.20); RED CELL DISTRIBUTION WIDTH 17.9 % (11.5-14.5); WHITE BLOOD COUNT 5.5 K/uL (4.8-10.8)
[2018-05-17] MEDS: Metoprolol 1 mg/ml Inj IVP SCH ×3 (05:50→16:14)
[2018-05-17 06:05] LABS: CALCIUM 9.1 mg/dL (8.4-10.2)
[2018-05-17] MEDS: Albuterol-Ipratrop 3 mg / 0.5 (3 ml) UD INH PRN ×2 (06:30→13:23)
--- NOTE | 2018-05-17 08:09 | CP.PCM.PN ---
<WibauxTho - Last Filed: 05/17/18 09:45> Objective - Vital Signs/Intake and Output Vital Signs (last 24 hours): Temp Pulse Resp BP Pulse Ox 99 F 107 H 17 123/65 100 05/17/18 05:00 05/17/18 09:14 05/17/18 05:00 05/17/18 09:13 05/17/18 05:00 - Medications Medications: Current Medications Acetaminophen (Tylenol 325 Mg Supp) 975 mg [place] ONCE PRN PRN Reason: Fever >100.4 F Acetaminophen (Tylenol 325mg Tab) 650 mg PO PRN PRN PRN Reason: Pain, Mild (1-3) Albuterol/Ipratropium (Duoneb 3 Mg/0.5 Mg (3 Ml) Ud) 3 ml INH RQ6 PRN PRN Reason: Shortness of Breath Last Admin: 05/17/18 06:30 Dose: 3 ml Artificial Tears (Artificial Tears) 1 drop OU Q8H PRN PRN Reason: Dry eyes Atorvastatin Calcium (Lipitor) 10 mg PO HS [facility] Last Admin: 05/16/18 20:59 Dose: Not Given Benzonatate (Tessalon Perles) 100 mg PO TID PRN PRN Reason: Cough Calcium/Vitamin D (Oyster Shell Calcium/Vitamin D 500 Mg-200 Iu) 1 tab PO BID [facility] Last Admin: 05/17/18 09:15 Dose: 1 tab Carvedilol (Coreg) 3.125 mg PO Q12 [facility] Last Admin: 05/17/18 09:13 Dose: 3.125 mg Clonidine HCl (Catapres) 0.2 mg PO Q8H [facility] Last Admin: 05/17/18 09:13 Dose: 0.2 mg Clopidogrel Bisulfate (Plavix) 75 mg PO DAILY [facility] Last Admin: 05/17/18 09:22 Dose: 75 mg Cyproheptadine HCl (Periactin) 4 mg PO BID [facility] Last Admin: 05/17/18 09:15 Dose: 4 mg Guaifenesin/Codeine Phosphate (Robitussin W/Codeine) 10 ml PO Q4 PRN PRN Reason: Cough Last Admin: 05/15/18 23:55 Dose: 10 ml Guaifenesin/Dextromethorphan (Robitussin Dm) 5 ml PO QID PRN PRN Reason: Cough and congestion Last Admin: 05/16/18 02:55 Dose: 5 ml Heparin Sodium (Porcine) (Heparin) 5,000 units SC Q8 [facility] PRN Reason: Protocol Last Admin: 05/17/18 09:14 Dose: 5,000 units Hydralazine HCl (Apresoline) 25 mg PO Q6H [facility] Last Admin: 05/17/18 05:39 Dose: Not Given Vancomycin HCl 1 gm/ Sodium (Chloride) 250 mls @ 125 mls/hr IVPB MWF [facility] PRN Reason: Protocol Last Admin: 05/15/18 08:15 Dose: 125 mls/hr Cefepime HCl 1 gm/ Sodium (Chloride) 100 mls @ 100 mls/hr IVPB DAILY [facility] PRN Reason: Protocol Last Admin: 05/17/18 09:20 Dose: 100 mls/hr Isosorbide Mononitrate (Imdur) 60 mg PO DAILY [facility] Last Admin: 05/17/18 09:14 Dose: 60 mg Lactulose (Enulose) 10 gm PO PRN PRN PRN Reason: Constipation Losartan Potassium (Cozaar) 100 mg PO DAILY [facility] Last Admin: 05/17/18 09:13 Dose: 100 mg Metoprolol Tartrate (Lopressor) 2.5 mg IVP Q6 [facility] Last Admin: 05/17/18 09:14 Dose: 2.5 mg Neomycin/Polymyxin/Bacitracin (Bacitracin/Neomycin/Polymyxin Opht Oint) 1 applic OS Q4 [facility] Last Admin: 05/17/18 09:11 Dose: 1 applic Pantoprazole Sodium (Protonix Inj) 40 mg IVP DAILY [facility] Last Admin: 05/17/18 09:19 Dose: 40 mg Sevelamer HCl (Renagel) 800 mg PO TID [facility] Last Admin: 05/17/18 09:19 Dose: 800 mg Tobramycin/Dexamethasone (Tobradex 0.3%-0.1% Opht Oint) 1 appl OU TID [facility] Last Admin: 05/17/18 09:19 Dose: 1 applic - Labs Labs: 05/17/18 05:00 05/17/18 05:00 PT 12.8 Seconds (9.8-13.1) 05/14/18 01:12 INR 1.2 (0.9-1.2) 05/14/18 01:12 APTT 31.1 Seconds (25.6-37.1) 05/14/18 01:12 Assessment and Plan (1) Pneumonia Status: Acute (2) Pleural effusion Status: Acute <Margarita Ventura - Last Filed: 05/17/18 11:15> Subjective - Date & Time of Evaluation Date of Evaluation: 05/17/18 Time of Evaluation: 08:09 - Subjective Subjective: pt somnolent arousable to verbal and painful stim not conversant at this time, however son states patient was lucid prior to admission hd stable, per cardiology as well pt [facility] Objective - Vital Signs/Intake and Output Vital Signs (last 24 hours): Temp Pulse Resp BP Pulse Ox 99 F 114 H 17 151/65 H 100 05/17/18 05:00 05/17/18 05:50 05/17/18 05:00 05/17/18 05:50 05/17/18 05:00 Vitals Reviewed GEN: somnolent arousable HEENT: NCAT, PERRL, EOMI HEART: RRR, +S1S2, NO MRG LUNG: CTAB, NO WRR ABD: soft, NT, ND, No HSM, No masses EXT: normal pedal pulses, normal capillary refill NEURO: awake, arousable SKIN: warm, dry PSYCH: normal mood, normal affect - Medications Medications: Current Medications Acetaminophen (Tylenol 325 Mg Supp) 975 mg [place] ONCE PRN PRN Reason: Fever >100.4 F Acetaminophen (Tylenol 325mg Tab) 650 mg PO PRN PRN PRN Reason: Pain, Mild (1-3) Albuterol/Ipratropium (Duoneb 3 Mg/0.5 Mg (3 Ml) Ud) 3 ml INH RQ6 PRN PRN Reason: Shortness of Breath Last Admin: 05/17/18 06:30 Dose: 3 ml Artificial Tears (Artificial Tears) 1 drop OU Q8H PRN PRN Reason: Dry eyes Atorvastatin Calcium (Lipitor) 10 mg PO HS [facility] Last Admin: 05/16/18 20:59 Dose: Not Given Benzonatate (Tessalon Perles) 100 mg PO TID PRN PRN Reason: Cough Calcium/Vitamin D (Oyster Shell Calcium/Vitamin D 500 Mg-200 Iu) 1 tab PO BID [facility] Last Admin: 05/16/18 17:07 Dose: Not Given Carvedilol (Coreg) 3.125 mg PO Q12 [facility] Last Admin: 05/16/18 20:58 Dose: Not Given Clonidine HCl (Catapres) 0.2 mg PO Q8H [facility] Last Admin: 05/17/18 01:19 Dose: Not Given Clopidogrel Bisulfate (Plavix) 75 mg PO DAILY [facility] Last Admin: 05/16/18 12:21 Dose: Not Given Cyproheptadine HCl (Periactin) 4 mg PO BID [facility] Last Admin: 05/16/18 17:08 Dose: Not Given Guaifenesin/Codeine Phosphate (Robitussin W/Codeine) 10 ml PO Q4 PRN PRN Reason: Cough Last Admin: 05/15/18 23:55 Dose: 10 ml Guaifenesin/Dextromethorphan (Robitussin Dm) 5 ml PO QID PRN PRN Reason: Cough and congestion Last Admin: 05/16/18 02:55 Dose: 5 ml Heparin Sodium (Porcine) (Heparin) 5,000 units SC Q8 [facility] PRN Reason: Protocol Last Admin: 05/17/18 01:20 Dose: 5,000 units Hydralazine HCl (Apresoline) 25 mg PO Q6H [facility] Last Admin: 05/17/18 05:39 Dose: Not Given Vancomycin HCl 1 gm/ Sodium (Chloride) 250 mls @ 125 mls/hr IVPB MWF [facility] PRN Reason: Protocol Last Admin: 05/15/18 08:15 Dose: 125 mls/hr Cefepime HCl 1 gm/ Sodium (Chloride) 100 mls @ 100 mls/hr IVPB DAILY [facility] PRN Reason: Protocol Last Admin: 05/16/18 09:23 Dose: 100 mls/hr Isosorbide Mononitrate (Imdur) 60 mg PO DAILY [facility] Last Admin: 05/16/18 12:21 Dose: Not Given Lactulose (Enulose) 10 gm PO PRN PRN PRN Reason: Constipation Losartan Potassium (Cozaar) 100 mg PO DAILY [facility] Last Admin: 05/16/18 12:20 Dose: Not Given Metoprolol Tartrate (Lopressor) 2.5 mg IVP Q6 [facility] Last Admin: 05/17/18 05:50 Dose: 2.5 mg Neomycin/Polymyxin/Bacitracin (Bacitracin/Neomycin/Polymyxin Opht Oint) 1 applic OS Q4 [facility] Last Admin: 05/17/18 05:39 Dose: 1 applic Pantoprazole Sodium (Protonix Inj) 40 mg IVP DAILY [facility] Last Admin: 05/16/18 10:50 Dose: 40 mg Sevelamer HCl (Renagel) 800 mg PO TID [facility] Last Admin: 05/16/18 17:08 Dose: Not Given Tobramycin/Dexamethasone (Tobradex 0.3%-0.1% Opht Oint) 1 appl OU TID [facility] Last Admin: 05/16/18 17:04 Dose: 1 applic - Labs Labs: 05/17/18 05:00 05/17/18 05:00 PT 12.8 Seconds (9.8-13.1) 05/14/18 01:12 INR 1.2 (0.9-1.2) 05/14/18 01:12 APTT 31.1 Seconds (25.6-37.1) 05/14/18 01:12 Assessment and Plan - Assessment and Plan (Free Text) Plan: 83 years old female residing at the [facility] with hx of HTN, CAD, Dementia and ESRD was sent in bec of change in mental status more demented than normal, with poor appetite along with swelling, of the left upper extremity. Pt has also been coughing. 1. Pneumonia , HAP prob bacterial Sepsis ruled out - cont IV vanco and Cefepime, dose Vanco each HD - Sputum c/s, Legionella, Mycoplasma : pending - Blood c/s: neg so far - ID and Pulm consulted - transfer out [facility] today, continue antibiotics 2. AMS due to Metabolic encephalopathy - Hemodialysis - Treat infection 3. Bilateral Pleural Effusion secondary to volume overload due to Renal Failure - Hemodialysis - pt received a dose of Lasix 4. A Fib with RVR - Consulted Dr Delgado cardiology- discussed case - rec to do CTA to r/o PE given elevated RV pressures -CTA Pulm : suboptimal stdy but no central/large PE - Cardiac monitoring - start low dose Coreg for rate control 5. Left upper extremity swelling , mild Cellulitis - Duplex US of left upper extremity: negative for DVT - ? lymphedema ( previous site of AV shunt???) - cont IV Vanco 6. Anasarca due to the renal failure - Hemodialysis 7. ESRD On HD - consult Dr Edwards Bet Taker for Hemodialysis 8. HTN BP low normal decreased Hydralazine dose to 25 mg q 6 , hold for BP less than 120 systolic cont Imdur and Losartan while pt is NPO - ( need Swallow eval ) , will start Lopressor IV 9. Aortic Stenosis ECHO: EF=40-45% , severe , mod to severe TR and Calcified aortic valve - avoid too much decrease in preload - Cardio consulted #. DVT with subQ heparin #. Code Status: Full
[2018-05-17] MEDS: Calcium-Vit D 500 mg-200 Units Tab UD PO SCH ×2 (09:15→18:08)
[2018-05-17] MEDS: Tobramycin/Dexamethasone OPHT OINT OU SCH ×2 (09:19→16:20)
[2018-05-17] MEDS: Cefepime 1 GM in Sodium Chloride 0.9% 100 ML IVPB SCH (09:20)
--- NOTE | 2018-05-17 10:03 | CP.PCM.PN ---
Subjective - Date & Time of Evaluation Date of Evaluation: 05/17/18 Time of Evaluation: 09:15 - Subjective Subjective: Clinically unchanged A Fib at mod HR BP 146/74 mm Hg O2 SAT 100% on O2 supplement by N/C at 2L/min Findings of CT angio noted No further car intervention recommended With the present degree of dementia, the risk benefit ratio of chr oral anticoagulation in this bed bound 83 yr old chronically ill pt will be marginal Will sign off the case Call me PRN Objective - Vital Signs/Intake and Output Vital Signs (last 24 hours): Temp Pulse Resp BP Pulse Ox 99 F 107 H 17 123/65 100 05/17/18 05:00 05/17/18 09:14 05/17/18 05:00 05/17/18 09:13 05/17/18 05:00 - Medications Medications: Current Medications Acetaminophen (Tylenol 325 Mg Supp) 975 mg [place] ONCE PRN PRN Reason: Fever >100.4 F Acetaminophen (Tylenol 325mg Tab) 650 mg PO PRN PRN PRN Reason: Pain, Mild (1-3) Albuterol/Ipratropium (Duoneb 3 Mg/0.5 Mg (3 Ml) Ud) 3 ml INH RQ6 PRN PRN Reason: Shortness of Breath Last Admin: 05/17/18 06:30 Dose: 3 ml Artificial Tears (Artificial Tears) 1 drop OU Q8H PRN PRN Reason: Dry eyes Atorvastatin Calcium (Lipitor) 10 mg PO HS [facility] Last Admin: 05/16/18 20:59 Dose: Not Given Benzonatate (Tessalon Perles) 100 mg PO TID PRN PRN Reason: Cough Calcium/Vitamin D (Oyster Shell Calcium/Vitamin D 500 Mg-200 Iu) 1 tab PO BID [facility] Last Admin: 05/17/18 09:15 Dose: 1 tab Carvedilol (Coreg) 3.125 mg PO Q12 [facility] Last Admin: 05/17/18 09:13 Dose: 3.125 mg Clonidine HCl (Catapres) 0.2 mg PO Q8H [facility] Last Admin: 05/17/18 09:13 Dose: 0.2 mg Clopidogrel Bisulfate (Plavix) 75 mg PO DAILY [facility] Last Admin: 05/17/18 09:22 Dose: 75 mg Cyproheptadine HCl (Periactin) 4 mg PO BID [facility] Last Admin: 05/17/18 09:15 Dose: 4 mg Guaifenesin/Codeine Phosphate (Robitussin W/Codeine) 10 ml PO Q4 PRN PRN Reason: Cough Last Admin: 05/15/18 23:55 Dose: 10 ml Guaifenesin/Dextromethorphan (Robitussin Dm) 5 ml PO QID PRN PRN Reason: Cough and congestion Last Admin: 05/16/18 02:55 Dose: 5 ml Heparin Sodium (Porcine) (Heparin) 5,000 units SC Q8 [facility] PRN Reason: Protocol Last Admin: 05/17/18 09:14 Dose: 5,000 units Hydralazine HCl (Apresoline) 25 mg PO Q6H [facility] Last Admin: 05/17/18 05:39 Dose: Not Given Vancomycin HCl 1 gm/ Sodium (Chloride) 250 mls @ 125 mls/hr IVPB MWF [facility] PRN Reason: Protocol Last Admin: 05/15/18 08:15 Dose: 125 mls/hr Cefepime HCl 1 gm/ Sodium (Chloride) 100 mls @ 100 mls/hr IVPB DAILY [facility] PRN Reason: Protocol Last Admin: 05/17/18 09:20 Dose: 100 mls/hr Isosorbide Mononitrate (Imdur) 60 mg PO DAILY [facility] Last Admin: 05/17/18 09:14 Dose: 60 mg Lactulose (Enulose) 10 gm PO PRN PRN PRN Reason: Constipation Losartan Potassium (Cozaar) 100 mg PO DAILY [facility] Last Admin: 05/17/18 09:13 Dose: 100 mg Metoprolol Tartrate (Lopressor) 2.5 mg IVP Q6 [facility] Last Admin: 05/17/18 09:14 Dose: 2.5 mg Neomycin/Polymyxin/Bacitracin (Bacitracin/Neomycin/Polymyxin Opht Oint) 1 applic OS Q4 [facility] Last Admin: 05/17/18 09:11 Dose: 1 applic Pantoprazole Sodium (Protonix Inj) 40 mg IVP DAILY [facility] Last Admin: 05/17/18 09:19 Dose: 40 mg Sevelamer HCl (Renagel) 800 mg PO TID [facility] Last Admin: 05/17/18 09:19 Dose: 800 mg Tobramycin/Dexamethasone (Tobradex 0.3%-0.1% Opht Oint) 1 appl OU TID [facility] Last Admin: 05/17/18 09:19 Dose: 1 applic - Labs Labs: 05/17/18 05:00 05/17/18 05:00 PT 12.8 Seconds (9.8-13.1) 05/14/18 01:12 INR 1.2 (0.9-1.2) 05/14/18 01:12 APTT 31.1 Seconds (25.6-37.1) 05/14/18 01:12
[2018-05-17] MEDS ORDERED: Metoprolol 1 mg/ml Inj IVP ONE (10:56)
--- NOTE | 2018-05-17 13:29 | CP.PCM.PN ---
Subjective - Date & Time of Evaluation Date of Evaluation: 05/17/18 Time of Evaluation: 13:29 - Subjective Subjective: ID Note- Pt. seen and examined today in ICU. awake and with her baseline dementia. dry cough. Objective - Vital Signs/Intake and Output Vital Signs (last 24 hours): Temp Pulse Resp BP Pulse Ox 98 F 112 H 15 122/38 L 98 05/17/18 13:00 05/17/18 13:00 05/17/18 13:00 05/17/18 13:00 05/17/18 13:00 - Medications Medications: Current Medications Acetaminophen (Tylenol 325 Mg Supp) 975 mg [place] ONCE PRN PRN Reason: Fever >100.4 F Acetaminophen (Tylenol 325mg Tab) 650 mg PO PRN PRN PRN Reason: Pain, Mild (1-3) Albuterol/Ipratropium (Duoneb 3 Mg/0.5 Mg (3 Ml) Ud) 3 ml INH RQ6 PRN PRN Reason: Shortness of Breath Last Admin: 05/17/18 13:23 Dose: 3 ml Artificial Tears (Artificial Tears) 1 drop OU Q8H PRN PRN Reason: Dry eyes Atorvastatin Calcium (Lipitor) 10 mg PO HS [facility] Last Admin: 05/16/18 20:59 Dose: Not Given Benzonatate (Tessalon Perles) 100 mg PO TID PRN PRN Reason: Cough Calcium/Vitamin D (Oyster Shell Calcium/Vitamin D 500 Mg-200 Iu) 1 tab PO BID [facility] Last Admin: 05/17/18 09:15 Dose: 1 tab Carvedilol (Coreg) 3.125 mg PO Q12 [facility] Last Admin: 05/17/18 09:13 Dose: 3.125 mg Clonidine HCl (Catapres) 0.2 mg PO Q8H [facility] Last Admin: 05/17/18 09:13 Dose: 0.2 mg Clopidogrel Bisulfate (Plavix) 75 mg PO DAILY [facility] Last Admin: 05/17/18 09:22 Dose: 75 mg Cyproheptadine HCl (Periactin) 4 mg PO BID [facility] Last Admin: 05/17/18 09:15 Dose: 4 mg Guaifenesin/Codeine Phosphate (Robitussin W/Codeine) 10 ml PO Q4 PRN PRN Reason: Cough Last Admin: 05/15/18 23:55 Dose: 10 ml Guaifenesin/Dextromethorphan (Robitussin Dm) 5 ml PO QID PRN PRN Reason: Cough and congestion Last Admin: 05/16/18 02:55 Dose: 5 ml Heparin Sodium (Porcine) (Heparin) 5,000 units SC Q8 [facility] PRN Reason: Protocol Last Admin: 05/17/18 09:14 Dose: 5,000 units Hydralazine HCl (Apresoline) 25 mg PO Q6H [facility] Last Admin: 05/17/18 11:35 Dose: Not Given Vancomycin HCl 1 gm/ Sodium (Chloride) 250 mls @ 125 mls/hr IVPB MWF [facility] PRN Reason: Protocol Last Admin: 05/15/18 08:15 Dose: 125 mls/hr Cefepime HCl 1 gm/ Sodium (Chloride) 100 mls @ 100 mls/hr IVPB DAILY [facility] PRN Reason: Protocol Last Admin: 05/17/18 09:20 Dose: 100 mls/hr Isosorbide Mononitrate (Imdur) 60 mg PO DAILY [facility] Last Admin: 05/17/18 09:14 Dose: 60 mg Lactulose (Enulose) 10 gm PO PRN PRN PRN Reason: Constipation Losartan Potassium (Cozaar) 100 mg PO DAILY [facility] Last Admin: 05/17/18 09:13 Dose: 100 mg Metoprolol Tartrate (Lopressor) 2.5 mg IVP Q6 [facility] Last Admin: 05/17/18 09:14 Dose: 2.5 mg Neomycin/Polymyxin/Bacitracin (Bacitracin/Neomycin/Polymyxin Opht Oint) 1 applic OS Q4 [facility] Last Admin: 05/17/18 09:11 Dose: 1 applic Pantoprazole Sodium (Protonix Inj) 40 mg IVP DAILY [facility] Last Admin: 05/17/18 09:19 Dose: 40 mg Sevelamer HCl (Renagel) 800 mg PO TID [facility] Last Admin: 05/17/18 13:16 Dose: Not Given Tobramycin/Dexamethasone (Tobradex 0.3%-0.1% Opht Oint) 1 appl OU TID [facility] Last Admin: 05/17/18 09:19 Dose: 1 applic - Labs Labs: - Additional Findings Additional findings: - Constitutional Appears: Chronically Ill Additional comments: more awake today - Head Exam Head Exam: ATRAUMATIC - Neck Exam Neck exam: Positive for: Full Rom Additional comments: supple - Respiratory Exam Additional comments: crackles at left base no wheezing - Cardiovascular Exam Cardiovascular Exam: RRR, +S1, +S2 - GI/Abdominal Exam GI & Abdominal Exam: Normal Bowel Sounds, Soft Additional comments: NT, Nd - Extremities Exam Additional comments: right arm AVF left arm edema and erythema has resolved. - Neurological Exam Neurological exam: more awake Laboratory Results - last 72 hr 05/14/18 05/14/18 05/14/18 11:30 18:46 18:46 WBC RBC Hgb Hct MCV MCH MCHC RDW Plt Count MPV Neut % (Auto) Lymph % (Auto) [place] % (Auto) Eos % (Auto) Baso % (Auto) Neut # (Auto) Lymph # (Auto) [place] # (Auto) Eos # (Auto) Baso # (Auto) Neutrophils % (Manual) Lymphocytes % (Manual) Monocytes % (Manual) Eosinophils % (Manual) Platelet Estimate Hypochromasia (manual) Anisocytosis (manual) Target Cells Tear Drop Cells Ovalocytes Sodium Potassium Chloride Carbon Dioxide Anion Gap BUN Creatinine Est GFR ( Amer) Est GFR (Non-Af Amer) Random Glucose Calcium Total Bilirubin AST ALT Alkaline Phosphatase Total Protein Albumin Globulin Albumin/Globulin Ratio Procalcitonin 0.37 Vancomycin Trough Hep Bs Antigen Negative Hep Bs Antibody Indeterminate Hep B Core IgM Ab Negative Hepatitis C Antibody Negative 05/15/18 05/15/18 05/16/18 13:05 13:05 05:00 WBC 3.8 L RBC 3.28 L Hgb 10.1 L Hct 31.7 L MCV 96.8 MCH 30.9 MCHC 32.0 L RDW 18.1 H Plt Count 110 L MPV Neut % (Auto) Lymph % (Auto) [place] % (Auto) Eos % (Auto) Baso % (Auto) Neut # (Auto) Lymph # (Auto) [place] # (Auto) Eos # (Auto) Baso # (Auto) Neutrophils % (Manual) Lymphocytes % (Manual) Monocytes % (Manual) Eosinophils % (Manual) Platelet Estimate Hypochromasia (manual) Anisocytosis (manual) Target Cells Tear Drop Cells Ovalocytes Sodium 137 Potassium 3.6 Chloride 99 Carbon Dioxide 27 Anion Gap 15 BUN 22 H Creatinine 4.1 H Est GFR ( Amer) 13 Est GFR (Non-Af Amer) 10 Random Glucose 77 Calcium 8.2 L Total Bilirubin AST ALT Alkaline Phosphatase Total Protein Albumin Globulin Albumin/Globulin Ratio Procalcitonin Vancomycin Trough 34.0 H Hep Bs Antigen Hep Bs Antibody Hep B Core IgM Ab Hepatitis C Antibody 05/16/18 05/16/18 05/17/18 05:00 05:00 05:00 WBC 3.7 L 5.5 RBC 3.27 L 3.59 L Hgb 10.2 L 11.1 L Hct 31.9 L 35.3 MCV 97.3 98.4 MCH 31.1 H 31.0 MCHC 31.9 L 31.5 L RDW 18.0 H 17.9 H Plt Count 109 L 118 L MPV 8.9 9.2 Neut % (Auto) 76.7 H 86.8 H Lymph % (Auto) 9.8 L 6.3 L [place] % (Auto) 11.0 H 6.8 Eos % (Auto) 1.4 0.0 Baso % (Auto) 1.1 0.1 Neut # (Auto) 2.8 4.7 Lymph # (Auto) 0.4 L 0.3 L [place] # (Auto) 0.4 0.4 Eos # (Auto) 0.1 0.0 Baso # (Auto) 0.0 0.0 Neutrophils % (Manual) 84 H Lymphocytes % (Manual) 6 L Monocytes % (Manual) 8 Eosinophils % (Manual) 2 Platelet Estimate Decreased L Hypochromasia (manual) Slight Anisocytosis (manual) Slight Target Cells Slight Tear Drop Cells Slight Ovalocytes Slight Sodium 137 Potassium 4.1 Chloride 100 Carbon Dioxide 24 Anion Gap 17 BUN 28 H Creatinine 5.0 H Est GFR ( Amer) 10 Est GFR (Non-Af Amer) 8 Random Glucose 65 Calcium 8.6 Total Bilirubin 0.8 AST 43 H D ALT 34 Alkaline Phosphatase 120 Total Protein 5.8 L Albumin 2.9 L Globulin 2.8 Albumin/Globulin Ratio 1.0 Procalcitonin Vancomycin Trough Hep Bs Antigen Hep Bs Antibody Hep B Core IgM Ab Hepatitis C Antibody 05/17/18 05/17/18 05:00 05:00 WBC RBC Hgb Hct MCV MCH MCHC RDW Plt Count MPV Neut % (Auto) Lymph % (Auto) [place] % (Auto) Eos % (Auto) Baso % (Auto) Neut # (Auto) Lymph # (Auto) [place] # (Auto) Eos # (Auto) Baso # (Auto) Neutrophils % (Manual) Lymphocytes % (Manual) Monocytes % (Manual) Eosinophils % (Manual) Platelet Estimate Hypochromasia (manual) Anisocytosis (manual) Target Cells Tear Drop Cells Ovalocytes Sodium 140 Potassium 4.3 Chloride 97 L Carbon Dioxide 22 Anion Gap 25 H BUN 18 H Creatinine 3.6 H Est GFR ( Amer) 15 Est GFR (Non-Af Amer) 12 Random Glucose 96 Calcium 9.1 Total Bilirubin AST ALT Alkaline Phosphatase Total Protein Albumin Globulin Albumin/Globulin Ratio Procalcitonin Vancomycin Trough 28.3 H Hep Bs Antigen Hep Bs Antibody Hep B Core IgM Ab Hepatitis C Antibody Microbiology 05/15/18 12:30 Blood-Venous Blood Culture - Preliminary NO GROWTH AFTER 48 HOURS 05/14/18 01:42 Blood Blood Culture - Preliminary NO GROWTH AFTER 3 DAYS 05/14/18 01:12 Blood Blood Culture - Preliminary NO GROWTH AFTER 3 DAYS 05/14/18 11:10 Nose MRSA Culture (Admit) - Final MRSA NOT DETECTED Assessment and Plan (1) ESRD (end stage renal disease) on dialysis Status: Acute (2) Pneumonia Status: Acute (3) Left arm cellulitis Status: Acute (4) Pleural effusion Status: Acute - Assessment and Plan (Free Text) Assessment: A/P- 83 year old [place] resident female with ESRD on HD, dementia, CAd, PPm who was admitted with more dementia than usual and left arm cellulitis. improving afebrile blood cx- neg x 2 LLE US - no dvt as per report chest Ct - b/l large pleural effusions. plan- advise to d/c Iv vanco as left arm ? cellulitis /edema has resolved. advise to also continue to apply warm compress to the LUE for 1 more day. also advise to continue pt. on the IV cefepime for pneumonia treatment that was already initiated by the Hospitalist last night. day #4 monitor aspiration precautions. advise pulmonary evaluations for the large b/l pleural effusions/may need thoracentheis. ICU time spent 40 minutes.
[2018-05-17] MEDS ORDERED: Chlorhexidine Gluconate 1 APPL/PKT TP ONE ×3 (13:45→22:31)
[2018-05-17] MEDS: guaiFENesin DM 100 mg-10 mg/5 ml UD PO PRN (13:48)
--- NOTE | 2018-05-17 14:27 | CP.PCM.PN ---
Subjective - Date & Time of Evaluation Date of Evaluation: 05/17/18 Time of Evaluation: 11:00 - Subjective Subjective: lethargic, non verbal, not following commands, paroxismal dry cough reported by nurses, Patient failed swallowing eval, NPO Objective - Vital Signs/Intake and Output Vital Signs (last 24 hours): Temp Pulse Resp BP Pulse Ox 98 F 112 H 15 122/38 L 98 05/17/18 13:00 05/17/18 13:00 05/17/18 13:00 05/17/18 13:00 05/17/18 13:00 - Medications Medications: Current Medications Acetaminophen (Tylenol 325 Mg Supp) 975 mg [place] ONCE PRN PRN Reason: Fever >100.4 F Acetaminophen (Tylenol 325mg Tab) 650 mg PO PRN PRN PRN Reason: Pain, Mild (1-3) Albuterol/Ipratropium (Duoneb 3 Mg/0.5 Mg (3 Ml) Ud) 3 ml INH RQ6 PRN PRN Reason: Shortness of Breath Last Admin: 05/17/18 13:23 Dose: 3 ml Artificial Tears (Artificial Tears) 1 drop OU Q8H PRN PRN Reason: Dry eyes Atorvastatin Calcium (Lipitor) 10 mg PO HS [facility] Last Admin: 05/16/18 20:59 Dose: Not Given Benzonatate (Tessalon Perles) 100 mg PO TID PRN PRN Reason: Cough Calcium/Vitamin D (Oyster Shell Calcium/Vitamin D 500 Mg-200 Iu) 1 tab PO BID [facility] Last Admin: 05/17/18 09:15 Dose: 1 tab Carvedilol (Coreg) 3.125 mg PO Q12 [facility] Last Admin: 05/17/18 09:13 Dose: 3.125 mg Clonidine HCl (Catapres) 0.2 mg PO Q8H [facility] Last Admin: 05/17/18 09:13 Dose: 0.2 mg Clopidogrel Bisulfate (Plavix) 75 mg PO DAILY [facility] Last Admin: 05/17/18 09:22 Dose: 75 mg Cyproheptadine HCl (Periactin) 4 mg PO BID [facility] Last Admin: 05/17/18 09:15 Dose: 4 mg Guaifenesin/Codeine Phosphate (Robitussin W/Codeine) 10 ml PO Q4 PRN PRN Reason: Cough Last Admin: 05/15/18 23:55 Dose: 10 ml Guaifenesin/Dextromethorphan (Robitussin Dm) 5 ml PO QID PRN PRN Reason: Cough and congestion Last Admin: 05/17/18 13:48 Dose: 5 ml Heparin Sodium (Porcine) (Heparin) 5,000 units SC Q8 [facility] PRN Reason: Protocol Last Admin: 05/17/18 09:14 Dose: 5,000 units Hydralazine HCl (Apresoline) 25 mg PO Q6H [facility] Last Admin: 05/17/18 11:35 Dose: Not Given Vancomycin HCl 1 gm/ Sodium (Chloride) 250 mls @ 125 mls/hr IVPB MWF [facility] PRN Reason: Protocol Last Admin: 05/15/18 08:15 Dose: 125 mls/hr Cefepime HCl 1 gm/ Sodium (Chloride) 100 mls @ 100 mls/hr IVPB DAILY [facility] PRN Reason: Protocol Last Admin: 05/17/18 09:20 Dose: 100 mls/hr Isosorbide Mononitrate (Imdur) 60 mg PO DAILY [facility] Last Admin: 05/17/18 09:14 Dose: 60 mg Lactulose (Enulose) 10 gm PO PRN PRN PRN Reason: Constipation Losartan Potassium (Cozaar) 100 mg PO DAILY [facility] Last Admin: 05/17/18 09:13 Dose: 100 mg Metoprolol Tartrate (Lopressor) 2.5 mg IVP Q6 [facility] Last Admin: 05/17/18 09:14 Dose: 2.5 mg Neomycin/Polymyxin/Bacitracin (Bacitracin/Neomycin/Polymyxin Opht Oint) 1 applic OS Q4 [facility] Last Admin: 05/17/18 13:48 Dose: 1 applic Pantoprazole Sodium (Protonix Inj) 40 mg IVP DAILY [facility] Last Admin: 05/17/18 09:19 Dose: 40 mg Sevelamer HCl (Renagel) 800 mg PO TID [facility] Last Admin: 05/17/18 13:16 Dose: Not Given Tobramycin/Dexamethasone (Tobradex 0.3%-0.1% Opht Oint) 1 appl OU TID [facility] Last Admin: 05/17/18 09:19 Dose: 1 applic - Labs Labs: 05/17/18 05:00 05/17/18 05:00 PT 12.8 Seconds (9.8-13.1) 05/14/18 01:12 INR 1.2 (0.9-1.2) 05/14/18 01:12 APTT 31.1 Seconds (25.6-37.1) 05/14/18 01:12 - Constitutional Appears: Chronically Ill - Head Exam Head Exam: NORMAL INSPECTION - Eye Exam Eye Exam: PERRL - ENT Exam ENT Exam: Normal Exam - Neck Exam Neck Exam: Normal Inspection - Respiratory Exam Respiratory Exam: Decreased Breath Sounds (at bases) - Cardiovascular Exam Cardiovascular Exam: REGULAR RHYTHM Additional comments: PPM - GI/Abdominal Exam GI & Abdominal Exam: Soft, Normal Bowel Sounds - Extremities Exam Additional comments: edema, erythema LUE resolved , R arm AVF - Neurological Exam Additional comments: non verbal , not following commands , limited movements all extremities - Skin Skin Exam: Warm Assessment and Plan (1) Pneumonia Status: Acute (2) Pleural effusion Status: Acute (3) CHF (congestive heart failure) Status: Acute (4) ESRD (end stage renal disease) on dialysis Status: Acute - Assessment and Plan (Free Text) Plan: continue Cefepime, DuoNeb, Patient to be transfer to Med-Surg, Patient is on Plavix ,
[2018-05-18] MEDS: Bacitracin/Neomycin/Polymyxin OPHT OINT OS SCH ×6 (00:21→21:13)
--- NOTE | 2018-05-18 07:10 | CP.PCM.PN ---
Subjective - Date & Time of Evaluation Date of Evaluation: 05/18/18 Time of Evaluation: 07:10 - Subjective Subjective: patient appears comfortable with NGT not conversant opens eyes, son at bedside discussed care with son Objective - Vital Signs/Intake and Output Vital Signs (last 24 hours): Temp Pulse Resp BP Pulse Ox 98.6 F 122 H 20 146/77 99 05/18/18 01:15 05/18/18 05:03 05/18/18 01:15 05/18/18 05:03 05/18/18 01:15 - Medications Medications: Current Medications Acetaminophen (Tylenol 325 Mg Supp) 975 mg [place] ONCE PRN PRN Reason: Fever >100.4 F Acetaminophen (Tylenol 325mg Tab) 650 mg PO PRN PRN PRN Reason: Pain, Mild (1-3) Albuterol/Ipratropium (Duoneb 3 Mg/0.5 Mg (3 Ml) Ud) 3 ml INH RQ6 PRN PRN Reason: Shortness of Breath Last Admin: 05/17/18 13:23 Dose: 3 ml Artificial Tears (Artificial Tears) 1 drop OU Q8H PRN PRN Reason: Dry eyes Atorvastatin Calcium (Lipitor) 10 mg PO HS [facility] Last Admin: 05/17/18 22:00 Dose: Not Given Benzonatate (Tessalon Perles) 100 mg PO TID PRN PRN Reason: Cough Calcium/Vitamin D (Oyster Shell Calcium/Vitamin D 500 Mg-200 Iu) 1 tab PO BID [facility] Last Admin: 05/17/18 18:08 Dose: Not Given Carvedilol (Coreg) 3.125 mg NG Q12 [facility] Last Admin: 05/18/18 05:00 Dose: 3.125 mg Clonidine HCl (Catapres) 0.2 mg NG Q8H [facility] Last Admin: 05/18/18 04:58 Dose: 0.2 mg Clopidogrel Bisulfate (Plavix) 75 mg PO DAILY [facility] Last Admin: 05/17/18 09:22 Dose: 75 mg Cyproheptadine HCl (Periactin) 4 mg PO BID [facility] Last Admin: 05/17/18 18:08 Dose: Not Given Guaifenesin/Codeine Phosphate (Robitussin W/Codeine) 10 ml PO Q4 PRN PRN Reason: Cough Last Admin: 05/15/18 23:55 Dose: 10 ml Guaifenesin/Dextromethorphan (Robitussin Dm) 5 ml PO QID PRN PRN Reason: Cough and congestion Last Admin: 05/17/18 13:48 Dose: 5 ml Heparin Sodium (Porcine) (Heparin) 5,000 units SC Q8 [facility] PRN Reason: Protocol Last Admin: 05/18/18 00:17 Dose: 5,000 units Hydralazine HCl (Apresoline) 25 mg NG Q6H [facility] Last Admin: 05/18/18 05:00 Dose: 25 mg Cefepime HCl 1 gm/ Sodium (Chloride) 100 mls @ 100 mls/hr IVPB DAILY [facility] PRN Reason: Protocol Last Admin: 05/17/18 09:20 Dose: 100 mls/hr Isosorbide Mononitrate (Imdur) 60 mg PO DAILY [facility] Last Admin: 05/17/18 09:14 Dose: 60 mg Lactulose (Enulose) 10 gm PO PRN PRN PRN Reason: Constipation Losartan Potassium (Cozaar) 100 mg NG DAILY [facility] Last Admin: 05/18/18 05:03 Dose: 100 mg Metoprolol Tartrate (Lopressor) 2.5 mg IVP Q6 [facility] Last Admin: 05/17/18 16:14 Dose: 2.5 mg Neomycin/Polymyxin/Bacitracin (Bacitracin/Neomycin/Polymyxin Opht Oint) 1 applic OS Q4 [facility] Last Admin: 05/18/18 04:59 Dose: 1 applic Pantoprazole Sodium (Protonix Inj) 40 mg IVP DAILY [facility] Last Admin: 05/17/18 09:19 Dose: 40 mg Sevelamer HCl (Renagel) 800 mg PO TID [facility] Last Admin: 05/17/18 18:08 Dose: Not Given Tobramycin/Dexamethasone (Tobradex 0.3%-0.1% Opht Oint) 1 appl OU TID [facility] Last Admin: 05/17/18 16:20 Dose: 1 applic - Labs Labs: 05/17/18 05:00 05/17/18 05:00 PT 12.8 Seconds (9.8-13.1) 05/14/18 01:12 INR 1.2 (0.9-1.2) 05/14/18 01:12 APTT 31.1 Seconds (25.6-37.1) 05/14/18 01:12 - Constitutional Appears: Non-toxic, No Acute Distress - Head Exam Head Exam: ATRAUMATIC, NORMOCEPHALIC - Eye Exam Eye Exam: EOMI, Normal appearance Pupil Exam: NORMAL ACCOMODATION - ENT Exam ENT Exam: Mucous Membranes Moist, Normal Exam - Respiratory Exam Respiratory Exam: Clear to Ausculation Bilateral, NORMAL BREATHING PATTERN - Cardiovascular Exam Cardiovascular Exam: RRR, +S1, +S2 - GI/Abdominal Exam GI & Abdominal Exam: Soft, Normal Bowel Sounds. absent: Organomegaly - Extremities Exam Extremities Exam: Normal Capillary Refill. absent: Pedal Edema - Back Exam Back Exam: absent: CVA tenderness (L), CVA tenderness (R) - Neurological Exam Neurological Exam: Alert, Awake - Psychiatric Exam Psychiatric exam: Normal Affect, Normal Mood - Skin Skin Exam: Dry, Warm Assessment and Plan - Assessment and Plan (Free Text) Plan: 83 years old female residing at the [facility] with hx of HTN, CAD, Dementia and ESRD was sent in bec of change in mental status more demented than normal, with poor appetite along with swelling, of the left upper extremity. Pt has also been coughing. Discussed with son, pt may require PEG tube as she is NPO per speech and swallow. Son will discuss with family. 1. Pneumonia , HAP prob bacterial Sepsis ruled out - cont IV vanco and Cefepime, dose Vanco each HD - Sputum c/s, Legionella, Mycoplasma : pending - Blood c/s: neg so far - ID and Pulm consulted - continue antibiotics 2. AMS due to Metabolic encephalopathy - Hemodialysis - Treat infection - speech and swallow - recommended NPO, NGT placed, Nephro initiated with free water flushes 100 ml [id number] 3. Bilateral Pleural Effusion secondary to volume overload due to Renal Failure - Hemodialysis - pt received a dose of Lasix 4. A Fib with RVR - Consulted Dr Delgado cardiology- discussed case - rec to do CTA to r/o PE given elevated RV pressures -CTA Pulm : suboptimal stdy but no central/large PE - Cardiac monitoring - start low dose Coreg for rate control 5. Left upper extremity swelling , mild Cellulitis - Duplex US of left upper extremity: negative for DVT - ? lymphedema ( previous site of AV shunt???) - cont IV Vanco 6. Anasarca due to the renal failure - Hemodialysis 7. ESRD On HD - consult Dr Edwards Foil Stamp Operator for Hemodialysis 8. HTN BP low normal decreased Hydralazine dose to 25 mg q 6 , hold for BP less than 120 systolic cont Imdur and Losartan while pt is NPO - ( need Swallow eval ) , will start Lopressor IV 9. Aortic Stenosis ECHO: EF=40-45% , severe , mod to severe TR and Calcified aortic valve - avoid too much decrease in preload - Cardio consulted #. DVT with subQ heparin #. Code Status: Full
[2018-05-18 08:10] LABS: HEMOGLOBIN 10.8 g/dL (12.0-16.0); MEAN CELL VOLUME 97.8 fl (81.0-99.0); MEAN CORPUSCULAR HGB CONC 31.7 g/dL (33.0-37.0); RBC 3.48 Mil/uL (3.80-5.20); WHITE BLOOD COUNT 4.7 K/uL (4.8-10.8)
[2018-05-18 08:20] LABS: CALCIUM 8.6 mg/dL (8.4-10.2)
--- NOTE | 2018-05-18 09:37 | RAD ---
Date of service: 05/18/2018 HISTORY: Post NG tube placement COMPARISON: Ruma in made with cysts chest radiograph 05/14/2018 FINDINGS: In situ NGT, the tip of which has not been included on this film though distal aspect does lie well below EG junction LUNGS: Persistent but slightly improved mild pulmonary venous congestive changes. Bilateral lower lobe alveolar-type infiltrates and bilateral effusions. . PLEURA: No significant pleural effusion identified, no pneumothorax apparent. CARDIOVASCULAR: Cardiomegaly. . . No change bipolar pacemaker/defibrillator OSSEOUS STRUCTURES: No significant abnormalities. VISUALIZED UPPER ABDOMEN: Normal. OTHER FINDINGS: Metallic surgical clips right axillary region again noted IMPRESSION: Persistent but slightly improved mild pulmonary venous congestive changes. Bilateral lower lobe alveolar-type infiltrates and bilateral effusions. .
[2018-05-18] MEDS: guaiFENesin-Codeine 100-10mg/5ml Syrup (5 ml) UD PO PRN (09:47)
[2018-05-18] MEDS: Tobramycin/Dexamethasone OPHT OINT OU SCH ×3 (09:56→17:04)
[2018-05-18] MEDS: Cefepime 1 GM in Sodium Chloride 0.9% 100 ML IVPB SCH (10:03)
[2018-05-18] MEDS: Calcium-Vit D 500 mg-200 Units Tab UD PO SCH (10:08)
--- NOTE | 2018-05-18 10:40 | CP.PCM.PN ---
Subjective - Date & Time of Evaluation Date of Evaluation: 05/18/18 Time of Evaluation: 10:38 - Subjective Subjective: RENAL s: sen and examined still sob vs: as abelow gen: nad, + sob sclera: anicteric op: clear neck :supple CV: +S1+s2 lungs: reduced bs + congestion abd: soft ext: trace edema neuro: a+ox3 psych: nml affect skin: no rash MICHEL edema imp: esrd /chf/ anemia of renal disease/ sepsis/ secondary hyperpara plan: HD today uf goal 2-3 kg would recommend fistuolgram of left upper arm w/ IR likely has axillary/ subclavian stenosis where pacer wire is h and h stable check phos level, on binder dose abx for esrd if effusions do not improve w/ ultrafiltration may need to consider thora Objective - Vital Signs/Intake and Output Vital Signs (last 24 hours): Temp Pulse Resp BP Pulse Ox 98.2 F 91 H 20 132/78 99 05/18/18 08:48 05/18/18 09:50 05/18/18 08:48 05/18/18 09:50 05/18/18 01:15 - Medications Medications: Current Medications Acetaminophen (Tylenol 325 Mg Supp) 975 mg [place] ONCE PRN PRN Reason: Fever >100.4 F Acetaminophen (Tylenol 325mg Tab) 650 mg PO PRN PRN PRN Reason: Pain, Mild (1-3) Last Admin: 05/18/18 09:47 Dose: 650 mg Albuterol/Ipratropium (Duoneb 3 Mg/0.5 Mg (3 Ml) Ud) 3 ml INH RQ6 PRN PRN Reason: Shortness of Breath Last Admin: 05/17/18 13:23 Dose: 3 ml Artificial Tears (Artificial Tears) 1 drop OU Q8H PRN PRN Reason: Dry eyes Atorvastatin Calcium (Lipitor) 10 mg PO HS [facility] Last Admin: 05/17/18 22:00 Dose: Not Given Benzonatate (Tessalon Perles) 100 mg PO TID PRN PRN Reason: Cough Calcium/Vitamin D (Oyster Shell Calcium/Vitamin D 500 Mg-200 Iu) 1 tab PO BID [facility] Last Admin: 05/18/18 10:08 Dose: 1 tab Carvedilol (Coreg) 3.125 mg NG Q12 [facility] Last Admin: 05/18/18 09:50 Dose: 3.125 mg Clonidine HCl (Catapres) 0.2 mg NG Q8H [facility] Last Admin: 05/18/18 04:58 Dose: 0.2 mg Clopidogrel Bisulfate (Plavix) 75 mg PO DAILY [facility] Last Admin: 05/18/18 10:07 Dose: 75 mg Cyproheptadine HCl (Periactin) 4 mg PO BID [facility] Last Admin: 05/17/18 18:08 Dose: Not Given Guaifenesin/Codeine Phosphate (Robitussin W/Codeine) 10 ml PO Q4 PRN PRN Reason: Cough Last Admin: 05/18/18 09:47 Dose: 10 ml Guaifenesin/Dextromethorphan (Robitussin Dm) 5 ml PO QID PRN PRN Reason: Cough and congestion Last Admin: 05/17/18 13:48 Dose: 5 ml Heparin Sodium (Porcine) (Heparin) 5,000 units SC Q8 [facility] PRN Reason: Protocol Last Admin: 05/18/18 09:51 Dose: 5,000 units Hydralazine HCl (Apresoline) 25 mg NG Q6H [facility] Last Admin: 05/18/18 09:49 Dose: 25 mg Cefepime HCl 1 gm/ Sodium (Chloride) 100 mls @ 100 mls/hr IVPB DAILY [facility] PRN Reason: Protocol Last Admin: 05/18/18 10:03 Dose: 100 mls/hr Isosorbide Mononitrate (Imdur) 60 mg PO DAILY [facility] Last Admin: 05/18/18 09:51 Dose: 60 mg Lactulose (Enulose) 10 gm PO PRN PRN PRN Reason: Constipation Losartan Potassium (Cozaar) 100 mg NG DAILY [facility] Last Admin: 05/18/18 09:51 Dose: Not Given Metoprolol Tartrate (Lopressor) 2.5 mg IVP Q6 [facility] Last Admin: 05/17/18 16:14 Dose: 2.5 mg Neomycin/Polymyxin/Bacitracin (Bacitracin/Neomycin/Polymyxin Opht Oint) 1 applic OS Q4 [facility] Last Admin: 05/18/18 04:59 Dose: 1 applic Pantoprazole Sodium (Protonix Inj) 40 mg IVP DAILY [facility] Last Admin: 05/18/18 10:00 Dose: 40 mg Sevelamer HCl (Renagel) 800 mg PO TID [facility] Last Admin: 05/18/18 10:00 Dose: 800 mg Tobramycin/Dexamethasone (Tobradex 0.3%-0.1% Opht Oint) 1 appl OU TID [facility] Last Admin: 05/18/18 09:56 Dose: 1 applic - Labs Labs: 05/18/18 07:00 05/18/18 07:00 PT 12.8 Seconds (9.8-13.1) 05/14/18 01:12 INR 1.2 (0.9-1.2) 05/14/18 01:12 APTT 31.1 Seconds (25.6-37.1) 05/14/18 01:12
--- NOTE | 2018-05-18 14:04 | CP.PCM.PN ---
Subjective - Date & Time of Evaluation Date of Evaluation: 05/18/18 Time of Evaluation: 13:20 - Subjective Subjective: F/U PNA non verbal, no following cammands , reported by nurses to have chest congestion Objective - Vital Signs/Intake and Output Vital Signs (last 24 hours): Temp Pulse Resp BP Pulse Ox 98.2 F 91 H 20 132/78 99 05/18/18 08:48 05/18/18 09:50 05/18/18 08:48 05/18/18 09:50 05/18/18 01:15 - Medications Medications: Current Medications Acetaminophen (Tylenol 325 Mg Supp) 975 mg [place] ONCE PRN PRN Reason: Fever >100.4 F Albuterol/Ipratropium (Duoneb 3 Mg/0.5 Mg (3 Ml) Ud) 3 ml INH RQ6 PRN PRN Reason: Shortness of Breath Last Admin: 05/17/18 13:23 Dose: 3 ml Artificial Tears (Artificial Tears) 1 drop OU Q8H PRN PRN Reason: Dry eyes Atorvastatin Calcium (Lipitor) 10 mg PO HS [facility] Last Admin: 05/17/18 22:00 Dose: Not Given Calcium/Vitamin D (Oyster Shell Calcium/Vitamin D 500 Mg-200 Iu) 1 tab PO BID [facility] Last Admin: 05/18/18 10:08 Dose: 1 tab Carvedilol (Coreg) 3.125 mg NG Q12 [facility] Last Admin: 05/18/18 09:50 Dose: 3.125 mg Clonidine HCl (Catapres) 0.2 mg NG Q8H [facility] Last Admin: 05/18/18 13:38 Dose: Not Given Clopidogrel Bisulfate (Plavix) 75 mg PO DAILY [facility] Last Admin: 05/18/18 10:07 Dose: 75 mg Guaifenesin/Codeine Phosphate (Robitussin W/Codeine) 10 ml PO Q4 PRN PRN Reason: Cough Last Admin: 05/18/18 09:47 Dose: 10 ml Guaifenesin/Dextromethorphan (Robitussin Dm) 5 ml PO QID PRN PRN Reason: Cough and congestion Last Admin: 05/17/18 13:48 Dose: 5 ml Heparin Sodium (Porcine) (Heparin) 5,000 units SC Q8 [facility] PRN Reason: Protocol Last Admin: 05/18/18 09:51 Dose: 5,000 units Hydralazine HCl (Apresoline) 25 mg NG Q6H [facility] Last Admin: 05/18/18 09:49 Dose: 25 mg Cefepime HCl 1 gm/ Sodium (Chloride) 100 mls @ 100 mls/hr IVPB DAILY [facility] PRN Reason: Protocol Last Admin: 05/18/18 10:03 Dose: 100 mls/hr Isosorbide Mononitrate (Imdur) 60 mg PO DAILY [facility] Last Admin: 05/18/18 09:51 Dose: 60 mg Lactulose (Enulose) 10 gm PO PRN PRN PRN Reason: Constipation Losartan Potassium (Cozaar) 100 mg NG DAILY [facility] Last Admin: 05/18/18 09:51 Dose: Not Given Metoprolol Tartrate (Lopressor) 2.5 mg IVP Q6 [facility] Last Admin: 05/17/18 16:14 Dose: 2.5 mg Neomycin/Polymyxin/Bacitracin (Bacitracin/Neomycin/Polymyxin Opht Oint) 1 applic OS Q4 [facility] Last Admin: 05/18/18 13:46 Dose: 1 applic Pantoprazole Sodium (Protonix Inj) 40 mg IVP DAILY [facility] Last Admin: 05/18/18 10:00 Dose: 40 mg Tobramycin/Dexamethasone (Tobradex 0.3%-0.1% Opht Oint) 1 appl OU TID [facility] Last Admin: 05/18/18 13:45 Dose: 1 applic - Labs Labs: 05/18/18 07:00 05/18/18 07:00 PT 12.8 Seconds (9.8-13.1) 05/14/18 01:12 INR 1.2 (0.9-1.2) 05/14/18 01:12 APTT 31.1 Seconds (25.6-37.1) 05/14/18 01:12 - Constitutional Appears: Chronically Ill - Head Exam Head Exam: NORMAL INSPECTION - Eye Exam Eye Exam: PERRL - ENT Exam ENT Exam: Normal Exam - Neck Exam Neck Exam: Normal Inspection - Respiratory Exam Respiratory Exam: Decreased Breath Sounds (at bases), Rhonchi - Cardiovascular Exam Cardiovascular Exam: REGULAR RHYTHM Additional comments: PPM - GI/Abdominal Exam GI & Abdominal Exam: Soft, Normal Bowel Sounds - Extremities Exam Additional comments: Edema, erythema LUE resolved, R arm AVF - Neurological Exam Additional comments: Non verbal, not following commands, limited movements all extremities - Skin Skin Exam: Warm Assessment and Plan (1) Pneumonia Status: Acute (2) Pleural effusion Status: Acute - Assessment and Plan (Free Text) Plan: Patient's son and Family considering Hospice, Penitentiary placement, not clear if They would agree with IR Thoracentesis, , Renal animal nutrition consultant feels that Dialysis will resolve B/L large effusion , Patient off Plavix
[2018-05-18] MEDS ORDERED: Acetaminophen 650mg/20.3ml solution UD PO PRN (22:30)
[2018-05-19] MEDS: Albuterol-Ipratrop 3 mg / 0.5 (3 ml) UD INH PRN ×3 (00:50→19:14)
[2018-05-19] MEDS: Bacitracin/Neomycin/Polymyxin OPHT OINT OS SCH ×5 (01:27→20:47)
[2018-05-19] MEDS: guaiFENesin-Codeine 100-10mg/5ml Syrup (5 ml) UD PO PRN ×2 (01:30→11:50)
[2018-05-19 07:31] LABS: HEMOGLOBIN 11.2 g/dL (12.0-16.0); MEAN CELL VOLUME 97.4 fl (81.0-99.0); MEAN CORPUSCULAR HEMOGLOBIN 31.3 pg (27.0-31.0); MEAN CORPUSCULAR HGB CONC 32.2 g/dL (33.0-37.0); RBC 3.57 Mil/uL (3.80-5.20); RED CELL DISTRIBUTION WIDTH 18.5 % (11.5-14.5); WHITE BLOOD COUNT 5.9 K/uL (4.8-10.8)
[2018-05-19 07:50] LABS: CALCIUM 8.9 mg/dL (8.4-10.2)
[2018-05-19] MEDS: Cefepime 1 GM in Sodium Chloride 0.9% 100 ML IVPB SCH (11:32)
[2018-05-19] MEDS: Tobramycin/Dexamethasone OPHT OINT OU SCH ×2 (11:33→17:08)
[2018-05-19] MEDS ORDERED: Chlorhexidine Gluconate 1 APPL/PKT TP ONE (12:27)
--- NOTE | 2018-05-19 14:27 | CP.PCM.PN ---
Subjective - Date & Time of Evaluation Date of Evaluation: 05/19/18 Time of Evaluation: 14:22 - Subjective Subjective: patient opens eyes to verbal stimuli, no verbal response, however hd stable no acute or apparent distress discussed with sonJoesph goals of care Objective - Vital Signs/Intake and Output Vital Signs (last 24 hours): Temp Pulse Resp BP Pulse Ox 98.2 F 65 22 117/53 L 95 05/19/18 08:35 05/19/18 11:31 05/19/18 08:35 05/19/18 11:31 05/19/18 08:35 Vitals Reviewed GEN: elderly, frail, alert HEENT: NCAT, PERRL, EOMI HEART: RRR, +S1S2, NO MRG LUNG: diminished breath sounds, no respiratory distress ABD: soft, NT, ND, No HSM, No masses EXT: normal pedal pulses, normal capillary refill NEURO: awake, alert SKIN: warm, dry PSYCH: advanced dementia, unable to evaluate - Medications Medications: Current Medications Acetaminophen (Tylenol 325 Mg Supp) 975 mg [place] ONCE PRN PRN Reason: Fever >100.4 F Acetaminophen (Tylenol 650mg/20.3ml Solution Ud) 650 mg PO Q6 PRN PRN Reason: Pain, moderate (4-7) Albuterol/Ipratropium (Duoneb 3 Mg/0.5 Mg (3 Ml) Ud) 3 ml INH RQ6 PRN PRN Reason: Shortness of Breath Last Admin: 05/19/18 07:32 Dose: 3 ml Artificial Tears (Artificial Tears) 1 drop OU Q8H PRN PRN Reason: Dry eyes Atorvastatin Calcium (Lipitor) 10 mg PO HS [facility] Last Admin: 05/18/18 21:16 Dose: 10 mg Carvedilol (Coreg) 3.125 mg NG Q12 [facility] Last Admin: 05/19/18 11:31 Dose: Not Given Clonidine HCl (Catapres) 0.2 mg NG Q8H [facility] Last Admin: 05/19/18 13:51 Dose: Not Given Clopidogrel Bisulfate (Plavix) 75 mg PO DAILY [facility] Last Admin: 05/18/18 10:07 Dose: 75 mg Guaifenesin/Codeine Phosphate (Robitussin W/Codeine) 10 ml PO Q4 PRN PRN Reason: Cough Last Admin: 05/19/18 11:50 Dose: 10 ml Guaifenesin/Dextromethorphan (Robitussin Dm) 5 ml PO QID PRN PRN Reason: Cough and congestion Last Admin: 05/17/18 13:48 Dose: 5 ml Hydralazine HCl (Apresoline) 25 mg NG Q6H [facility] Last Admin: 05/19/18 11:30 Dose: Not Given Cefepime HCl 1 gm/ Sodium (Chloride) 100 mls @ 100 mls/hr IVPB DAILY [facility] PRN Reason: Protocol Last Admin: 05/19/18 11:32 Dose: 100 mls/hr Isosorbide Mononitrate (Imdur) 60 mg PO DAILY [facility] Last Admin: 05/18/18 14:09 Dose: Not Given Lactulose (Enulose) 10 gm PO PRN PRN PRN Reason: Constipation Losartan Potassium (Cozaar) 100 mg NG DAILY [facility] Last Admin: 05/19/18 11:31 Dose: Not Given Metoprolol Tartrate (Lopressor) 2.5 mg IVP Q6 [facility] Last Admin: 05/17/18 16:14 Dose: 2.5 mg Neomycin/Polymyxin/Bacitracin (Bacitracin/Neomycin/Polymyxin Opht Oint) 1 applic OS Q4 [facility] Last Admin: 05/19/18 11:30 Dose: 1 applic Pantoprazole Sodium (Protonix Inj) 40 mg IVP DAILY [facility] Last Admin: 05/19/18 11:33 Dose: 40 mg Tobramycin/Dexamethasone (Tobradex 0.3%-0.1% Opht Oint) 1 appl OU TID [facility] Last Admin: 05/19/18 11:33 Dose: 1 applic - Labs Labs: 05/19/18 06:30 05/19/18 06:30 PT 12.8 Seconds (9.8-13.1) 05/14/18 01:12 INR 1.2 (0.9-1.2) 05/14/18 01:12 APTT 31.1 Seconds (25.6-37.1) 05/14/18 01:12 Assessment and Plan - Assessment and Plan (Free Text) Plan: 83 years old female residing at the [facility] with hx of HTN, CAD, Dementia and ESRD was sent in bec of change in mental status more demented than normal, with poor appetite along with swelling, of the left upper extremity. Pt has also been coughing. Discussed patient's wishes at length with son, Joesph this afternoon, who identified himself as the POA. He states patient often has episodes of delirium with administration of antibiotics and "this is not her." It was explained patient's decline is more likely secondary to progressive dementia. He would like further evaluation by Neurology for dysphagia, however does not want a PEG tube. He states his mother "is a fighter" and wishes to proceed with diagnostic evaluation and treatments for her conditions at this time. He states the family does not want any aggressive or life sustaining measures. He would, however, like us to discuss his mother's case with a Dr. Leyda Valencia, who is a friend of the family. Extensive conversation with Dr. Leyda Valencia. Explained patient was admitted for pneumonia, pleural effusion, rule out DVT LUE. Discussed patient's mentation and worsened dementia, despite antibiotics and dialysis, in addition to thoracentesis and fistulogram for eval for HD access. Also discussed patient' s nutrition status given NPO status, and the need to set goals of care and treatment. It is my impression that this would be difficult for the family to do without being absolutely certain of the progression of patient's dementia. 05/19: Will obtain IR consult for thoracentesis, fistulogram, reinsert NGT. No PEG. Neuro consult. 1. Pneumonia , HAP prob bacterial Sepsis ruled out - considering aspiration pneumonia given patient's dysphagia - cont IV vanco and Cefepime, dose Vanco each HD - Sputum c/s, Legionella, Mycoplasma - Blood c/s: neg so far - ID and Pulm consulted - continue antibiotics 2. AMS due to Metabolic encephalopathy, worsening dementia - Hemodialysis - Treat infection - speech and swallow - recommended NPO, NGT placed, Nephro initiated with free water flushes 100 ml [id number] - patient pulled NGT, will reinsert NGT. - Obtain Neuro consult tomorrow for evaluation of worsening dementia 3. Large Pleural Effusion secondary to volume overload due to Renal Failure - Hemodialysis - pt received a dose of Lasix - will likely need IR tomorrow for Thoracentesis, as per son's wishes 4. A Fib with RVR - Consulted Dr Delgado cardiology- discussed case - rec to do CTA to r/o PE given elevated RV pressures -CTA Pulm : suboptimal stdy but no central/large PE - Cardiac monitoring - start low dose Coreg for rate control 5. Left upper extremity swelling , mild Cellulitis - Duplex US of left upper extremity: negative for DVT - ? lymphedema ( previous site of AV shunt???) - cont IV Vanco - fistulogram for eval of stenosis 6. Anasarca due to the renal failure - Hemodialysis 7. ESRD On HD - consult Dr Edwards Constitutional Law Professor for Hemodialysis 8. HTN BP low normal decreased Hydralazine dose to 25 mg q 6 , hold for BP less than 120 systolic cont Imdur and Losartan while pt is NPO , will start Lopressor IV 9. Aortic Stenosis ECHO: EF=40-45% , severe , mod to severe TR and Calcified aortic valve - avoid too much decrease in preload - Cardio consulted #. DVT with subQ heparin #. Code Status:DNR
[2018-05-20] MEDS: Bacitracin/Neomycin/Polymyxin OPHT OINT OS SCH ×6 (00:13→21:20)
[2018-05-20] MEDS: Dextrose 5%/0.9% NS 1,000 ML IV SCH (00:14)
[2018-05-20] MEDS: Albuterol-Ipratrop 3 mg / 0.5 (3 ml) UD INH PRN ×4 (04:56→19:05)
[2018-05-20 06:15] LABS: MEAN CELL VOLUME 96.8 fl (81.0-99.0); MEAN CORPUSCULAR HEMOGLOBIN 30.9 pg (27.0-31.0); MEAN CORPUSCULAR HGB CONC 31.9 g/dL (33.0-37.0); RBC 3.57 Mil/uL (3.80-5.20); WHITE BLOOD COUNT 4.4 K/uL (4.8-10.8)
[2018-05-20 06:58] LABS: CALCIUM 8.6 mg/dL (8.4-10.2)
--- NOTE | 2018-05-20 08:23 | CP.PCM.CON ---
<Susi Smith - Last Filed: 05/20/18 14:03> History of Present Illness - History of Present Illness History of Present Illness: PGY5 GI Initial Consult Tomeka Lentz is a 83-year-old female a [facility] w/ hx of dementia, ESRD, HTN, A-fib who was brought to the emergency room when she was found to be more confused than usual. She has a long history of dementia. She has been on chronic hemodialysis for approximately 9 years. Pt is non- verbal and all information was obtained from the chart and by staff. Pt was more altered upon admission and a swallow eval was not even attempted based on mention. PT had an NG tube in place for meds and feeds, but was pulled by the pt yesterday. Family at this time refuses another placement of an NG tube. No overnight events. Pt is curently receiving dialysis. PMH: CAD, Dementia, HTN, HLD; End Stage Renal Disease on HD MWF; TIA, Falls, hemorrhoides PSH: Cholecystectomy, Pacemaker, AV fistula right forearm SH: Unknown if ever smoked; No illegal drug use; No Alcohol; reside at the [facility] FH: States: Unknown Family Hx Endo Hx: unknown ROS: 12 point ROS conducted, neg other than above Past Patient History - Past Medical History & Family History Past Medical History?: Yes - Past Social History Smoking Status: Never Smoked Alcohol: None Drugs: Denies Home Situation {Lives}: Alf - CARDIAC Hx Cardiac Disorders: Yes Hx Heart Attack: Yes Hx Hypercholesterolemia: Yes Hx Hypertension: Yes Hx Pacemaker: Yes - PULMONARY Hx Respiratory Disorders: No - NEUROLOGICAL Hx Neurological Disorder: Yes Hx Dementia: Yes Hx Transient Ischemic Attacks (TIA): Yes - HEENT Hx HEENT Problems: No - RENAL Hx Chronic Kidney Disease: Yes Hx Dialysis: Yes Hx Kidney Stones: No - ENDOCRINE/METABOLIC Hx Endocrine Disorders: No Hx Diabetes Mellitus Type 2: Yes - HEMATOLOGICAL/ONCOLOGICAL Hx AIDS: No Hx Human Immunodeficiency Virus (HIV): No - INTEGUMENTARY Hx Dermatological Problems: No - MUSCULOSKELETAL/RHEUMATOLOGICAL Hx Falls: No - GASTROINTESTINAL Hx Gastrointestinal Disorders: Yes Hx Hemorrhoids: Yes - GENITOURINARY/GYNECOLOGICAL Hx Genitourinary Disorders: No - PSYCHIATRIC Hx Substance Use: No - SURGICAL HISTORY Hx Arteriovenous Shunt: Yes (R Arm) Hx Cholecystectomy: Yes - ANESTHESIA Hx Anesthesia: Yes Hx Anesthesia Reactions: No Meds Allergies/Adverse Reactions: Allergies Allergy/AdvReac Type Severity Reaction Status Date / Time moxifloxacin Allergy SHORTNESS Verified 05/14/18 00:01 OF BREATH Penicillins Allergy RASH Verified 05/14/18 00:01 - Medications Medications: Current Medications Acetaminophen (Tylenol 325 Mg Supp) 975 mg [place] ONCE PRN PRN Reason: Fever >100.4 F Acetaminophen (Tylenol 650mg/20.3ml Solution Ud) 650 mg PO Q6 PRN PRN Reason: Pain, moderate (4-7) Albuterol/Ipratropium (Duoneb 3 Mg/0.5 Mg (3 Ml) Ud) 3 ml INH RQ6 PRN PRN Reason: Shortness of Breath Last Admin: 05/20/18 07:04 Dose: 3 ml Artificial Tears (Artificial Tears) 1 drop OU Q8H PRN PRN Reason: Dry eyes Atorvastatin Calcium (Lipitor) 10 mg PO HS [facility] Last Admin: 05/19/18 22:30 Dose: Not Given Carvedilol (Coreg) 3.125 mg NG Q12 [facility] Last Admin: 05/19/18 20:47 Dose: Not Given Clonidine HCl (Catapres) 0.2 mg NG Q8H [facility] Last Admin: 05/20/18 04:18 Dose: Not Given Clopidogrel Bisulfate (Plavix) 75 mg PO DAILY [facility] Last Admin: 05/18/18 10:07 Dose: 75 mg Guaifenesin/Dextromethorphan (Robitussin Dm) 5 ml PO QID PRN PRN Reason: Cough and congestion Last Admin: 05/17/18 13:48 Dose: 5 ml Hydralazine HCl (Apresoline) 25 mg NG Q6H [facility] Last Admin: 05/20/18 04:18 Dose: Not Given Cefepime HCl 1 gm/ Sodium (Chloride) 100 mls @ 100 mls/hr IVPB DAILY [facility] PRN Reason: Protocol Last Admin: 05/19/18 11:32 Dose: 100 mls/hr Dextrose/Sodium Chloride (Dextrose 5%/0.9% Ns 1000 Ml) 1,000 mls @ 42 mls/hr IV .[id number] [facility] Stop: 05/20/18 23:51 Last Admin: 05/20/18 00:14 Dose: 42 mls/hr Isosorbide Mononitrate (Imdur) 60 mg PO DAILY [facility] Last Admin: 05/18/18 14:09 Dose: Not Given Lactulose (Enulose) 10 gm PO PRN PRN PRN Reason: Constipation Losartan Potassium (Cozaar) 100 mg NG DAILY [facility] Last Admin: 05/19/18 11:31 Dose: Not Given Metoprolol Tartrate (Lopressor) 2.5 mg IVP Q6 [facility] Last Admin: 05/17/18 16:14 Dose: 2.5 mg Neomycin/Polymyxin/Bacitracin (Bacitracin/Neomycin/Polymyxin Opht Oint) 1 applic OS Q4 [facility] Last Admin: 05/20/18 05:13 Dose: 1 applic Pantoprazole Sodium (Protonix Inj) 40 mg IVP DAILY [facility] Last Admin: 05/19/18 11:33 Dose: 40 mg Tobramycin/Dexamethasone (Tobradex 0.3%-0.1% Opht Oint) 1 appl OU TID [facility] Last Admin: 05/19/18 17:08 Dose: 1 applic Physical Exam - Constitutional Appears: No Acute Distress, Confused, Chronically Ill - Head Exam Head Exam: ATRAUMATIC, NORMOCEPHALIC - Eye Exam Eye Exam: Normal appearance - ENT Exam ENT Exam: Mucous Membranes Dry, Normal Exam - Neck Exam Neck exam: Positive for: Normal Inspection - Respiratory Exam Respiratory Exam: Rales, NORMAL BREATHING PATTERN. absent: Wheezes, Respiratory Distress Additional comments: decreased B/L basal breath sounds - GI/Abdominal Exam GI & Abdominal Exam: Normal Bowel Sounds, Soft. absent: Distended, Firm, Guarding, Hypoactive Bowel Sounds, Organomegaly, Rebound, Rigid, Tenderness - Extremities Exam Extremities exam: Negative for: joint swelling, pedal edema - Neurological Exam Neurological exam: Alert, Oriented x3 - Psychiatric Exam Psychiatric exam: Normal Affect, Normal Mood - Skin Skin Exam: Dry, Intact, Normal Color, Warm Results - Vital Signs Recent Vital Signs: Last Vital Signs Temp 98.1 F 05/20/18 08:07 Pulse 106 H 05/20/18 08:07 Resp 20 05/20/18 08:07 BP 148/63 05/20/18 08:07 Pulse Ox 99 05/20/18 08:07 - Labs Result Diagrams: 05/20/18 05:45 05/20/18 05:45 Labs: Laboratory Results - last 24 hr 05/19/18 05/20/18 05/20/18 06:30 05:45 05:45 WBC 4.4 L RBC 3.57 L Hgb 11.0 L Hct 34.5 MCV 96.8 MCH 30.9 MCHC 31.9 L RDW 18.0 H Plt Count 92 L D 107 L Sodium 138 Potassium 3.7 Chloride 99 Carbon Dioxide 28 Anion Gap 15 BUN 30 H Creatinine 4.5 H Est GFR ( Amer) 11 Est GFR (Non-Af Amer) 9 Random Glucose 142 H Calcium 8.6 Assessment & Plan - Assessment and Plan (Free Text) Assessment: Tomeka Lentz is a 83-year-old female a long-term resident [facility] a [facility] w/ hx of dementia, ESRD, HTN, A-fib who was brought to the emergency room when she was found to be more confused than usual. Dysphagia 2/2 mental status Acute metabolic encephalopathy 2/2 multifactoral PNA Pleural effusion Ansarca ESRD Plan: -would recommend repeat swallow eval, since pt is more alert -aspiration precautions for now -keep NPO until swallow eval -will need cardiology, pulmonology, and Anesthesia clearance prior to procedure -after a long discussion with son (Joesph) who is bedside, it was decided to hold on PEG placement -recommend further cardiac and pulmonary w/u -reconsult if family decides to proceed with PEG placement will Dr. Stevenson <Malik Stevenson - Last Filed: 05/21/18 09:39> Meds - Medications Medications: Current Medications Acetaminophen (Tylenol 325 Mg Supp) 975 mg [place] ONCE PRN PRN Reason: Fever >100.4 F Acetaminophen (Tylenol 650mg/20.3ml Solution Ud) 650 mg PO Q6 PRN PRN Reason: Pain, moderate (4-7) Albuterol/Ipratropium (Duoneb 3 Mg/0.5 Mg (3 Ml) Ud) 3 ml INH RQ6 PRN PRN Reason: Shortness of Breath Last Admin: 05/20/18 19:05 Dose: 3 ml Artificial Tears (Artificial Tears) 1 drop OU Q8H PRN PRN Reason: Dry eyes Atorvastatin Calcium (Lipitor) 10 mg PO HS [facility] Last Admin: 05/20/18 21:33 Dose: Not Given Carvedilol (Coreg) 3.125 mg NG Q12 [facility] Last Admin: 05/20/18 21:33 Dose: Not Given Clonidine HCl (Catapres) 0.2 mg NG Q8H [facility] Last Admin: 05/21/18 04:52 Dose: Not Given Clopidogrel Bisulfate (Plavix) 75 mg PO DAILY [facility] Last Admin: 05/18/18 10:07 Dose: 75 mg Guaifenesin/Dextromethorphan (Robitussin Dm) 5 ml PO QID PRN PRN Reason: Cough and congestion Last Admin: 05/17/18 13:48 Dose: 5 ml Hydralazine HCl (Apresoline) 25 mg NG Q6H [facility] Last Admin: 05/21/18 04:52 Dose: Not Given Cefepime HCl 1 gm/ Sodium (Chloride) 100 mls @ 100 mls/hr IVPB DAILY [facility] PRN Reason: Protocol Last Admin: 05/20/18 09:09 Dose: 100 mls/hr Isosorbide Mononitrate (Imdur) 60 mg PO DAILY [facility] Last Admin: 05/18/18 14:09 Dose: Not Given Lactulose (Enulose) 10 gm PO PRN PRN PRN Reason: Constipation Losartan Potassium (Cozaar) 100 mg NG DAILY [facility] Last Admin: 05/20/18 08:59 Dose: Not Given Metoprolol Tartrate (Lopressor) 2.5 mg IVP Q6 [facility] Last Admin: 05/17/18 16:14 Dose: 2.5 mg Neomycin/Polymyxin/Bacitracin (Bacitracin/Neomycin/Polymyxin Opht Oint) 1 applic OS Q4 [facility] Last Admin: 05/21/18 01:21 Dose: 1 applic Pantoprazole Sodium (Protonix Inj) 40 mg IVP DAILY [facility] Last Admin: 05/20/18 09:10 Dose: 40 mg Tobramycin/Dexamethasone (Tobradex 0.3%-0.1% Opht Oint) 1 appl OU TID [facility] Last Admin: 05/20/18 17:07 Dose: 1 applic Results - Vital Signs Recent Vital Signs: Last Vital Signs Temp 98.1 F 05/21/18 08:22 Pulse 78 05/21/18 08:22 Resp 20 05/21/18 08:22 BP 152/63 H 05/21/18 08:22 Pulse Ox 98 05/21/18 08:22 - Labs Result Diagrams: 05/20/18 05:45 05/20/18 05:45 Labs: Laboratory Results - last 24 hr 05/20/18 05/20/18 12:35 12:35 Fluid Source Pleural/thoracentesi Fluid Appearance Clear Fluid WBC 73.0 Fluid RBC 640.0 H Fluid Tot Cell Count 100 H Fluid Neutrophils 22.0 H Fluid Lymphocytes 50.0 H Fld Monocyte/Macrophag 28 H Fluid Glucose 142 Fluid LDH 180 Fluid Comment Yellow Attending/Attestation - Attestation I have personally seen and examined this patient.: Yes I have fully participated in the care of the patient.: Yes I have reviewed all pertinent clinical information: Yes Notes (Text): 05/21/18 09:10 Late entry due to [email or web address] remote technical issues- This is a 83-year-old female a long-term resident of a [facility] w/ hx of dementia, ESRD, HTN, A- fib who was brought to the emergency room when she was found to be more confused than usual. GI consulted for PEG placement. Patient was seen at bedside on 05/20 afternoon with son. Not able to converse. As per family mental status is worse than before. Currently being treated for PNA, metabolic encephalopathy, fluid overload, pleural effusion. Discussed with the son that in her current condition she has high prbability of being intubated for the procedure. family wants to wait to see if her mental status improves after she is clinically improved with her current illness. She will probably fail MBS as she cannot follow instructions. Optimize cardian and respiratory status prior to PEG scheduling. Will sign off now. Primary team to coordinate with windows phone developer for alternate feeding. Please reconsult once patient clinically optimized
[2018-05-20] MEDS: Cefepime 1 GM in Sodium Chloride 0.9% 100 ML IVPB SCH (09:09)
[2018-05-20] MEDS: Tobramycin/Dexamethasone OPHT OINT OU SCH ×3 (09:11→17:07)
--- NOTE | 2018-05-20 09:51 | CP.PCM.PN ---
Subjective - Date & Time of Evaluation Date of Evaluation: 05/20/18 Time of Evaluation: 09:30 - Subjective Subjective: Pt is stable from cardiac point of view for PEG tube insertion. Objective - Vital Signs/Intake and Output Vital Signs (last 24 hours): Temp Pulse Resp BP Pulse Ox 98.1 F 106 H 20 148/63 99 05/20/18 08:07 05/20/18 08:07 05/20/18 08:07 05/20/18 08:07 05/20/18 08:07 - Medications Medications: Current Medications Acetaminophen (Tylenol 325 Mg Supp) 975 mg [place] ONCE PRN PRN Reason: Fever >100.4 F Acetaminophen (Tylenol 650mg/20.3ml Solution Ud) 650 mg PO Q6 PRN PRN Reason: Pain, moderate (4-7) Albuterol/Ipratropium (Duoneb 3 Mg/0.5 Mg (3 Ml) Ud) 3 ml INH RQ6 PRN PRN Reason: Shortness of Breath Last Admin: 05/20/18 07:04 Dose: 3 ml Artificial Tears (Artificial Tears) 1 drop OU Q8H PRN PRN Reason: Dry eyes Atorvastatin Calcium (Lipitor) 10 mg PO HS [facility] Last Admin: 05/19/18 22:30 Dose: Not Given Carvedilol (Coreg) 3.125 mg NG Q12 [facility] Last Admin: 05/20/18 08:59 Dose: Not Given Clonidine HCl (Catapres) 0.2 mg NG Q8H [facility] Last Admin: 05/20/18 04:18 Dose: Not Given Clopidogrel Bisulfate (Plavix) 75 mg PO DAILY [facility] Last Admin: 05/18/18 10:07 Dose: 75 mg Guaifenesin/Dextromethorphan (Robitussin Dm) 5 ml PO QID PRN PRN Reason: Cough and congestion Last Admin: 05/17/18 13:48 Dose: 5 ml Hydralazine HCl (Apresoline) 25 mg NG Q6H [facility] Last Admin: 05/20/18 04:18 Dose: Not Given Cefepime HCl 1 gm/ Sodium (Chloride) 100 mls @ 100 mls/hr IVPB DAILY [facility] PRN Reason: Protocol Last Admin: 05/20/18 09:09 Dose: 100 mls/hr Dextrose/Sodium Chloride (Dextrose 5%/0.9% Ns 1000 Ml) 1,000 mls @ 42 mls/hr IV .[id number] [facility] Stop: 05/20/18 23:51 Last Admin: 05/20/18 00:14 Dose: 42 mls/hr Isosorbide Mononitrate (Imdur) 60 mg PO DAILY [facility] Last Admin: 05/18/18 14:09 Dose: Not Given Lactulose (Enulose) 10 gm PO PRN PRN PRN Reason: Constipation Losartan Potassium (Cozaar) 100 mg NG DAILY [facility] Last Admin: 05/20/18 08:59 Dose: Not Given Metoprolol Tartrate (Lopressor) 2.5 mg IVP Q6 [facility] Last Admin: 05/17/18 16:14 Dose: 2.5 mg Neomycin/Polymyxin/Bacitracin (Bacitracin/Neomycin/Polymyxin Opht Oint) 1 applic OS Q4 [facility] Last Admin: 05/20/18 09:10 Dose: 1 applic Pantoprazole Sodium (Protonix Inj) 40 mg IVP DAILY [facility] Last Admin: 05/20/18 09:10 Dose: 40 mg Tobramycin/Dexamethasone (Tobradex 0.3%-0.1% Opht Oint) 1 appl OU TID [facility] Last Admin: 05/20/18 09:11 Dose: 1 applic - Labs Labs: 05/20/18 05:45 05/20/18 05:45 PT 12.8 Seconds (9.8-13.1) 05/14/18 01:12 INR 1.2 (0.9-1.2) 05/14/18 01:12 APTT 31.1 Seconds (25.6-37.1) 05/14/18 01:12
--- NOTE | 2018-05-20 10:00 | CP.PCM.PN ---
Subjective - Date & Time of Evaluation Date of Evaluation: 05/19/18 Time of Evaluation: 13:30 - Subjective Subjective: THIS NOTE is FOR 05-19-18 Eyes open, non verbal , not following commands, Patient's son is at bedside Objective - Vital Signs/Intake and Output Vital Signs (last 24 hours): Temp Pulse Resp BP Pulse Ox 98.1 F 106 H 20 148/63 99 05/20/18 08:07 05/20/18 08:07 05/20/18 08:07 05/20/18 08:07 05/20/18 08:07 - Medications Medications: Current Medications Acetaminophen (Tylenol 325 Mg Supp) 975 mg [place] ONCE PRN PRN Reason: Fever >100.4 F Acetaminophen (Tylenol 650mg/20.3ml Solution Ud) 650 mg PO Q6 PRN PRN Reason: Pain, moderate (4-7) Albuterol/Ipratropium (Duoneb 3 Mg/0.5 Mg (3 Ml) Ud) 3 ml INH RQ6 PRN PRN Reason: Shortness of Breath Last Admin: 05/20/18 07:04 Dose: 3 ml Artificial Tears (Artificial Tears) 1 drop OU Q8H PRN PRN Reason: Dry eyes Atorvastatin Calcium (Lipitor) 10 mg PO HS [facility] Last Admin: 05/19/18 22:30 Dose: Not Given Carvedilol (Coreg) 3.125 mg NG Q12 [facility] Last Admin: 05/20/18 08:59 Dose: Not Given Clonidine HCl (Catapres) 0.2 mg NG Q8H [facility] Last Admin: 05/20/18 04:18 Dose: Not Given Clopidogrel Bisulfate (Plavix) 75 mg PO DAILY [facility] Last Admin: 05/18/18 10:07 Dose: 75 mg Guaifenesin/Dextromethorphan (Robitussin Dm) 5 ml PO QID PRN PRN Reason: Cough and congestion Last Admin: 05/17/18 13:48 Dose: 5 ml Hydralazine HCl (Apresoline) 25 mg NG Q6H [facility] Last Admin: 05/20/18 04:18 Dose: Not Given Cefepime HCl 1 gm/ Sodium (Chloride) 100 mls @ 100 mls/hr IVPB DAILY [facility] PRN Reason: Protocol Last Admin: 05/20/18 09:09 Dose: 100 mls/hr Dextrose/Sodium Chloride (Dextrose 5%/0.9% Ns 1000 Ml) 1,000 mls @ 42 mls/hr IV .[id number] [facility] Stop: 05/20/18 23:51 Last Admin: 05/20/18 00:14 Dose: 42 mls/hr Isosorbide Mononitrate (Imdur) 60 mg PO DAILY [facility] Last Admin: 05/18/18 14:09 Dose: Not Given Lactulose (Enulose) 10 gm PO PRN PRN PRN Reason: Constipation Losartan Potassium (Cozaar) 100 mg NG DAILY [facility] Last Admin: 05/20/18 08:59 Dose: Not Given Metoprolol Tartrate (Lopressor) 2.5 mg IVP Q6 [facility] Last Admin: 05/17/18 16:14 Dose: 2.5 mg Neomycin/Polymyxin/Bacitracin (Bacitracin/Neomycin/Polymyxin Opht Oint) 1 applic OS Q4 [facility] Last Admin: 05/20/18 09:10 Dose: 1 applic Pantoprazole Sodium (Protonix Inj) 40 mg IVP DAILY [facility] Last Admin: 05/20/18 09:10 Dose: 40 mg Tobramycin/Dexamethasone (Tobradex 0.3%-0.1% Opht Oint) 1 appl OU TID [facility] Last Admin: 05/20/18 09:11 Dose: 1 applic - Labs Labs: 05/20/18 05:45 05/20/18 05:45 PT 12.8 Seconds (9.8-13.1) 05/14/18 01:12 INR 1.2 (0.9-1.2) 05/14/18 01:12 APTT 31.1 Seconds (25.6-37.1) 05/14/18 01:12 - Constitutional Appears: Chronically Ill - Head Exam Head Exam: NORMAL INSPECTION - Eye Exam Eye Exam: PERRL - ENT Exam ENT Exam: Normal Exam - Neck Exam Neck Exam: Normal Inspection - Respiratory Exam Respiratory Exam: Decreased Breath Sounds, Rhonchi - Cardiovascular Exam Cardiovascular Exam: REGULAR RHYTHM Additional comments: PPM - GI/Abdominal Exam GI & Abdominal Exam: Soft, Normal Bowel Sounds - Extremities Exam Additional comments: Larm edema, R arm AVF - Back Exam Back Exam: NORMAL INSPECTION - Neurological Exam Neurological Exam: Awake Additional comments: not following commands , generalized weakness - Skin Skin Exam: Warm Assessment and Plan (1) Pneumonia Status: Acute (2) Pleural effusion Status: Acute - Assessment and Plan (Free Text) Plan: discussed with Patient,s son , He is not sure if He would agree with Thoracentesis, He will get in touch with a Dr friend of him , Patient is off Plavix since 05-18, Pulmonary cleared for IR Thoracentesis on Sunday
--- NOTE | 2018-05-20 10:06 | CP.PCM.PN ---
Subjective - Date & Time of Evaluation Date of Evaluation: 05/20/18 Time of Evaluation: 10:04 - Subjective Subjective: Patient and bed not in acute distress no significant changes clinically with vital sign appear to be stable. No nausea no vomiting Objective - Vital Signs/Intake and Output Vital Signs (last 24 hours): Temp Pulse Resp BP Pulse Ox 98.1 F 106 H 20 148/63 99 05/20/18 08:07 05/20/18 08:07 05/20/18 08:07 05/20/18 08:07 05/20/18 08:07 - Medications Medications: Current Medications Acetaminophen (Tylenol 325 Mg Supp) 975 mg [place] ONCE PRN PRN Reason: Fever >100.4 F Acetaminophen (Tylenol 650mg/20.3ml Solution Ud) 650 mg PO Q6 PRN PRN Reason: Pain, moderate (4-7) Albuterol/Ipratropium (Duoneb 3 Mg/0.5 Mg (3 Ml) Ud) 3 ml INH RQ6 PRN PRN Reason: Shortness of Breath Last Admin: 05/20/18 07:04 Dose: 3 ml Artificial Tears (Artificial Tears) 1 drop OU Q8H PRN PRN Reason: Dry eyes Atorvastatin Calcium (Lipitor) 10 mg PO HS [facility] Last Admin: 05/19/18 22:30 Dose: Not Given Carvedilol (Coreg) 3.125 mg NG Q12 [facility] Last Admin: 05/20/18 08:59 Dose: Not Given Clonidine HCl (Catapres) 0.2 mg NG Q8H [facility] Last Admin: 05/20/18 04:18 Dose: Not Given Clopidogrel Bisulfate (Plavix) 75 mg PO DAILY [facility] Last Admin: 05/18/18 10:07 Dose: 75 mg Guaifenesin/Dextromethorphan (Robitussin Dm) 5 ml PO QID PRN PRN Reason: Cough and congestion Last Admin: 05/17/18 13:48 Dose: 5 ml Hydralazine HCl (Apresoline) 25 mg NG Q6H [facility] Last Admin: 05/20/18 04:18 Dose: Not Given Cefepime HCl 1 gm/ Sodium (Chloride) 100 mls @ 100 mls/hr IVPB DAILY [facility] PRN Reason: Protocol Last Admin: 05/20/18 09:09 Dose: 100 mls/hr Dextrose/Sodium Chloride (Dextrose 5%/0.9% Ns 1000 Ml) 1,000 mls @ 42 mls/hr IV .[id number] [facility] Stop: 05/20/18 23:51 Last Admin: 05/20/18 00:14 Dose: 42 mls/hr Isosorbide Mononitrate (Imdur) 60 mg PO DAILY [facility] Last Admin: 05/18/18 14:09 Dose: Not Given Lactulose (Enulose) 10 gm PO PRN PRN PRN Reason: Constipation Losartan Potassium (Cozaar) 100 mg NG DAILY [facility] Last Admin: 05/20/18 08:59 Dose: Not Given Metoprolol Tartrate (Lopressor) 2.5 mg IVP Q6 [facility] Last Admin: 05/17/18 16:14 Dose: 2.5 mg Neomycin/Polymyxin/Bacitracin (Bacitracin/Neomycin/Polymyxin Opht Oint) 1 applic OS Q4 [facility] Last Admin: 05/20/18 09:10 Dose: 1 applic Pantoprazole Sodium (Protonix Inj) 40 mg IVP DAILY [facility] Last Admin: 05/20/18 09:10 Dose: 40 mg Tobramycin/Dexamethasone (Tobradex 0.3%-0.1% Opht Oint) 1 appl OU TID [facility] Last Admin: 05/20/18 09:11 Dose: 1 applic - Labs Labs: 05/20/18 05:45 05/20/18 05:45 PT 12.8 Seconds (9.8-13.1) 05/14/18 01:12 INR 1.2 (0.9-1.2) 05/14/18 01:12 APTT 31.1 Seconds (25.6-37.1) 05/14/18 01:12 - Constitutional Appears: No Acute Distress - ENT Exam ENT Exam: Mucous Membranes Moist - Neck Exam Neck Exam: absent: Lymphadenopathy - Respiratory Exam Respiratory Exam: NORMAL BREATHING PATTERN. absent: Decreased Breath Sounds - Cardiovascular Exam Cardiovascular Exam: absent: Gallop, JVD, Rubs - GI/Abdominal Exam GI & Abdominal Exam: Soft, Normal Bowel Sounds - Extremities Exam Extremities Exam: absent: Calf Tenderness - Back Exam Back Exam: absent: CVA tenderness (L), CVA tenderness (R) - Neurological Exam Neurological Exam: Altered - Skin Skin Exam: absent: Cyanosis Assessment and Plan (1) ESRD (end stage renal disease) on dialysis Assessment & Plan: end stage renal disease patient receiving dialysis TTS. Pneumonia patient receiving antibiotics with the pleural effusion to attempt to remove fluid on dialysis? That if we will be done. Pulmonary follow-up. Sepsis appeared to be improving Patient may be going for PEG Status: Acute (2) Fever Status: Acute (3) Pneumonia Status: Acute (4) Sepsis Status: Acute
--- NOTE | 2018-05-20 11:56 | CP.PCM.PN ---
Subjective - Date & Time of Evaluation Date of Evaluation: 05/20/18 Time of Evaluation: 11:53 - Subjective Subjective: pt mildly more awake and alert this morning hd stable PEG on HOLD until complete dysphagia workup with speech and swallow, continue NPO for now for thoracentesis today Objective - Vital Signs/Intake and Output Vital Signs (last 24 hours): Temp Pulse Resp BP Pulse Ox 98.1 F 106 H 20 148/63 99 05/20/18 08:07 05/20/18 08:07 05/20/18 08:07 05/20/18 08:07 05/20/18 08:07 - Medications Medications: Current Medications Acetaminophen (Tylenol 325 Mg Supp) 975 mg [place] ONCE PRN PRN Reason: Fever >100.4 F Acetaminophen (Tylenol 650mg/20.3ml Solution Ud) 650 mg PO Q6 PRN PRN Reason: Pain, moderate (4-7) Albuterol/Ipratropium (Duoneb 3 Mg/0.5 Mg (3 Ml) Ud) 3 ml INH RQ6 PRN PRN Reason: Shortness of Breath Last Admin: 05/20/18 07:04 Dose: 3 ml Artificial Tears (Artificial Tears) 1 drop OU Q8H PRN PRN Reason: Dry eyes Atorvastatin Calcium (Lipitor) 10 mg PO HS [facility] Last Admin: 05/19/18 22:30 Dose: Not Given Carvedilol (Coreg) 3.125 mg NG Q12 [facility] Last Admin: 05/20/18 08:59 Dose: Not Given Clonidine HCl (Catapres) 0.2 mg NG Q8H [facility] Last Admin: 05/20/18 04:18 Dose: Not Given Clopidogrel Bisulfate (Plavix) 75 mg PO DAILY [facility] Last Admin: 05/18/18 10:07 Dose: 75 mg Guaifenesin/Dextromethorphan (Robitussin Dm) 5 ml PO QID PRN PRN Reason: Cough and congestion Last Admin: 05/17/18 13:48 Dose: 5 ml Hydralazine HCl (Apresoline) 25 mg NG Q6H [facility] Last Admin: 05/20/18 04:18 Dose: Not Given Cefepime HCl 1 gm/ Sodium (Chloride) 100 mls @ 100 mls/hr IVPB DAILY [facility] PRN Reason: Protocol Last Admin: 05/20/18 09:09 Dose: 100 mls/hr Dextrose/Sodium Chloride (Dextrose 5%/0.9% Ns 1000 Ml) 1,000 mls @ 42 mls/hr IV .[id number] [facility] Stop: 05/20/18 23:51 Last Admin: 05/20/18 00:14 Dose: 42 mls/hr Isosorbide Mononitrate (Imdur) 60 mg PO DAILY [facility] Last Admin: 05/18/18 14:09 Dose: Not Given Lactulose (Enulose) 10 gm PO PRN PRN PRN Reason: Constipation Losartan Potassium (Cozaar) 100 mg NG DAILY [facility] Last Admin: 05/20/18 08:59 Dose: Not Given Metoprolol Tartrate (Lopressor) 2.5 mg IVP Q6 [facility] Last Admin: 05/17/18 16:14 Dose: 2.5 mg Neomycin/Polymyxin/Bacitracin (Bacitracin/Neomycin/Polymyxin Opht Oint) 1 applic OS Q4 [facility] Last Admin: 05/20/18 09:10 Dose: 1 applic Pantoprazole Sodium (Protonix Inj) 40 mg IVP DAILY [facility] Last Admin: 05/20/18 09:10 Dose: 40 mg Tobramycin/Dexamethasone (Tobradex 0.3%-0.1% Opht Oint) 1 appl OU TID [facility] Last Admin: 05/20/18 09:11 Dose: 1 applic - Labs Labs: 05/20/18 05:45 05/20/18 05:45 PT 12.8 Seconds (9.8-13.1) 05/14/18 01:12 INR 1.2 (0.9-1.2) 05/14/18 01:12 APTT 31.1 Seconds (25.6-37.1) 05/14/18 01:12 - Constitutional Appears: Non-toxic, In Acute Distress - Head Exam Head Exam: ATRAUMATIC, NORMOCEPHALIC - Eye Exam Eye Exam: EOMI, Normal appearance, PERRL Pupil Exam: NORMAL ACCOMODATION - ENT Exam ENT Exam: Mucous Membranes Moist, Normal Oropharynx - Respiratory Exam Respiratory Exam: Clear to Ausculation Bilateral, NORMAL BREATHING PATTERN - Cardiovascular Exam Cardiovascular Exam: RRR, +S1, +S2 - GI/Abdominal Exam GI & Abdominal Exam: Soft, Normal Bowel Sounds - Back Exam Back Exam: absent: CVA tenderness (L), CVA tenderness (R) - Neurological Exam Neurological Exam: Alert, Awake Additional comments: dementia+ - Psychiatric Exam Psychiatric exam: Normal Affect, Normal Mood - Skin Skin Exam: Dry, Warm Assessment and Plan - Assessment and Plan (Free Text) Plan: 83 years old female residing at the [facility] with hx of HTN, CAD, Dementia and ESRD was sent in bec of change in mental status more demented than normal, with poor appetite along with swelling, of the left upper extremity. Pt has also been coughing. Discussed patient's wishes at length with son, Joesph this afternoon, who identified himself as the POA. He states patient often has episodes of delirium with administration of antibiotics and "this is not her." It was explained patient's decline is more likely secondary to progressive dementia. He would like further evaluation by Neurology for dysphagia, however does not want a PEG tube. He states his mother "is a fighter" and wishes to proceed with diagnostic evaluation and treatments for her conditions at this time. He states the family does not want any aggressive or life sustaining measures. He would, however, like us to discuss his mother's case with a Dr. Leyda Valencia, who is a friend of the family. Extensive conversation with Dr. Leyda Valencia. Explained patient was admitted for pneumonia, pleural effusion, rule out DVT LUE. Discussed patient's mentation and worsened dementia, despite antibiotics and dialysis, in addition to thoracentesis and fistulogram for eval for HD access. Also discussed patient' s nutrition status given NPO status, and the need to set goals of care and treatment. It is my impression that this would be difficult for the family to do without being absolutely certain of the progression of patient's dementia. 05/19: Will obtain IR consult for thoracentesis, fistulogram, reinsert NGT. No PEG. Neuro consult. 05/20: Thoracentesis R today. No Fistulogram per discussion with IR, not indicated. Swallow eval today: pt takes pureed, modified eval tomorrow, cont NPO for now. Family decided for PEG IF FAILS SWALLOW EVAL. GI: [place], Cardio and Pulm clearances provided. 1. Pneumonia , HAP prob bacterial Sepsis ruled out - considering aspiration pneumonia given patient's dysphagia - cont IV vanco and Cefepime, dose Vanco each HD - Sputum c/s, Legionella, Mycoplasma - Blood c/s: neg so far - ID and Pulm consulted - continue antibiotics 2. AMS due to Metabolic encephalopathy, worsening dementia - Hemodialysis - Treat infection - speech and swallow - recommended NPO, NGT placed, Nephro initiated with free water flushes 100 ml [id number] - patient pulled NGT, will reinsert NGT, pending per FAMILY. - Obtain Neuro consult tomorrow for evaluation of worsening dementia 3. Large Pleural Effusion secondary to volume overload due to Renal Failure - Hemodialysis - pt received a dose of Lasix - R side thoracentesis today 4. A Fib with RVR - Consulted Dr Delgado cardiology- discussed case - rec to do CTA to r/o PE given elevated RV pressures -CTA Pulm : suboptimal stdy but no central/large PE - Cardiac monitoring - start low dose Coreg for rate control 5. Left upper extremity swelling , mild Cellulitis - Duplex US of left upper extremity: negative for DVT - ? lymphedema ( previous site of AV shunt???) - cont IV Vanco - fistulogram for eval of stenosis 6. Anasarca due to the renal failure - Hemodialysis 7. ESRD On HD - consult Dr [facility] [employer] for Hemodialysis 8. HTN BP low normal decreased Hydralazine dose to 25 mg q 6 , hold for BP less than 120 systolic cont Imdur and Losartan while pt is NPO , will start Lopressor IV 9. Aortic Stenosis ECHO: EF=40-45% , severe , mod to severe TR and Calcified aortic valve - avoid too much decrease in preload - Cardio consulted #. DVT with subQ heparin #. Code Status:DNR
[2018-05-20] MEDS ORDERED: Lidocaine 1% Inj (20ml) ONE (12:03)
--- NOTE | 2018-05-20 12:27 | CP.PCM.PN ---
Subjective - Date & Time of Evaluation Date of Evaluation: 05/20/18 Time of Evaluation: 12:27 - Subjective Subjective: ID note- pt. seen in med-surg floor today. awake but remains with baseline dementia . afebrile Objective - Vital Signs/Intake and Output Vital Signs (last 24 hours): Temp Pulse Resp BP Pulse Ox 98.1 F 106 H 20 148/63 99 05/20/18 08:07 05/20/18 08:07 05/20/18 08:07 05/20/18 08:07 05/20/18 08:07 - Medications Medications: Current Medications Acetaminophen (Tylenol 325 Mg Supp) 975 mg [place] ONCE PRN PRN Reason: Fever >100.4 F Acetaminophen (Tylenol 650mg/20.3ml Solution Ud) 650 mg PO Q6 PRN PRN Reason: Pain, moderate (4-7) Albuterol/Ipratropium (Duoneb 3 Mg/0.5 Mg (3 Ml) Ud) 3 ml INH RQ6 PRN PRN Reason: Shortness of Breath Last Admin: 05/20/18 07:04 Dose: 3 ml Artificial Tears (Artificial Tears) 1 drop OU Q8H PRN PRN Reason: Dry eyes Atorvastatin Calcium (Lipitor) 10 mg PO HS [facility] Last Admin: 05/19/18 22:30 Dose: Not Given Carvedilol (Coreg) 3.125 mg NG Q12 [facility] Last Admin: 05/20/18 08:59 Dose: Not Given Clonidine HCl (Catapres) 0.2 mg NG Q8H [facility] Last Admin: 05/20/18 04:18 Dose: Not Given Clopidogrel Bisulfate (Plavix) 75 mg PO DAILY [facility] Last Admin: 05/18/18 10:07 Dose: 75 mg Guaifenesin/Dextromethorphan (Robitussin Dm) 5 ml PO QID PRN PRN Reason: Cough and congestion Last Admin: 05/17/18 13:48 Dose: 5 ml Hydralazine HCl (Apresoline) 25 mg NG Q6H [facility] Last Admin: 05/20/18 04:18 Dose: Not Given Cefepime HCl 1 gm/ Sodium (Chloride) 100 mls @ 100 mls/hr IVPB DAILY [facility] PRN Reason: Protocol Last Admin: 05/20/18 09:09 Dose: 100 mls/hr Dextrose/Sodium Chloride (Dextrose 5%/0.9% Ns 1000 Ml) 1,000 mls @ 42 mls/hr IV .[id number] [facility] Stop: 05/20/18 23:51 Last Admin: 05/20/18 00:14 Dose: 42 mls/hr Isosorbide Mononitrate (Imdur) 60 mg PO DAILY [facility] Last Admin: 05/18/18 14:09 Dose: Not Given Lactulose (Enulose) 10 gm PO PRN PRN PRN Reason: Constipation Losartan Potassium (Cozaar) 100 mg NG DAILY [facility] Last Admin: 05/20/18 08:59 Dose: Not Given Metoprolol Tartrate (Lopressor) 2.5 mg IVP Q6 [facility] Last Admin: 05/17/18 16:14 Dose: 2.5 mg Neomycin/Polymyxin/Bacitracin (Bacitracin/Neomycin/Polymyxin Opht Oint) 1 applic OS Q4 [facility] Last Admin: 05/20/18 09:10 Dose: 1 applic Pantoprazole Sodium (Protonix Inj) 40 mg IVP DAILY [facility] Last Admin: 05/20/18 09:10 Dose: 40 mg Tobramycin/Dexamethasone (Tobradex 0.3%-0.1% Opht Oint) 1 appl OU TID [facility] Last Admin: 05/20/18 09:11 Dose: 1 applic - Labs Labs: - Additional Findings Additional findings: - Constitutional Appears: Chronically Ill Additional comments: more awake today - Head Exam Head Exam: ATRAUMATIC - Neck Exam Neck exam: Positive for: Full Rom Additional comments: supple - Respiratory Exam Additional comments: crackles at left base no wheezing - Cardiovascular Exam Cardiovascular Exam: RRR, +S1, +S2 - GI/Abdominal Exam GI & Abdominal Exam: Normal Bowel Sounds, Soft Additional comments: NT, Nd - Extremities Exam Additional comments: right arm AVF left arm edema and erythema has resolved. - Neurological Exam Neurological exam: dementia 05/15/18 12:30 Blood-Venous Blood Culture - Final NO GROWTH AFTER 5 DAYS 05/15/18 12:30 Blood-Venous Gram Stain - Final TEST NOT PERFORMED 05/17/18 10:00 Sputum Gram Stain - Final 05/17/18 10:00 Sputum Sputum Culture - Final No growth. 05/14/18 01:42 Blood Blood Culture - Final NO GROWTH AFTER 5 DAYS 05/14/18 01:42 Blood Gram Stain - Final TEST NOT PERFORMED 05/14/18 01:12 Blood Blood Culture - Final NO GROWTH AFTER 5 DAYS 05/14/18 01:12 Blood Gram Stain - Final TEST NOT PERFORMED 05/17/18 15:30 Naris MRSA Culture (Admit) - Final MRSA NOT DETECTED 05/14/18 11:10 Nose MRSA Culture (Admit) - Final MRSA NOT DETECTED Assessment and Plan (1) ESRD (end stage renal disease) on dialysis Status: Acute (2) Pneumonia Status: Acute (3) Left arm cellulitis Status: Acute (4) Pleural effusion Status: Acute - Assessment and Plan (Free Text) Assessment: A/P- 83 year old [place] resident female with ESRD on HD, dementia, CAd, PPm who was admitted with more dementia than usual and left arm cellulitis. afebrile minimal leukopenia blood cx- neg x 3 sputum cx- neg LLE US - no dvt as per report chest Ct - b/l large pleural effusions. plan- also advise to continue pt. on the IV cefepime for pneumonia/pneumonitis treatment day #7 monitor aspiration precautions. thoracenthesis planned for today for evaluation of the pleural effusions.
--- NOTE | 2018-05-20 12:40 | PCM.SURG1 ---
Surgeon's Initial Post Op Note - Surgeon's Notes Surgeon: Jason Blevins MD Reporter: None Type of Anesthesia: Local Pre-Operative Diagnosis: Right pleural effusion Operative Findings: US showed moderate right pleural effusion Post-Operative Diagnosis: Right pleural effusion Operation Performed: US guided right thoracentesis Specimen/Specimens Removed: 660 cc of straw colored fluid Estimated Blood Loss: EBL {In ML}: 1 Blood Products Given: N/A Drains Used: No Drains Post-Op Condition: Fair Date of Surgery/Procedure: 05/20/18 Time of Surgery/Procedure: 12:35
[2018-05-20 12:58] LABS: BODY FLUID TYPE PLEURAL/THORACENTESI
[2018-05-20 13:24] LABS: GLUCOSE,BODY FLUID 142 mg/dL (NONE ESTABLISHED)
[2018-05-20 13:46] LABS: BF GROSS APPEARANCE CLEAR (CLEAR); BODY FLUID MONO/MACROPHAGE 28 % (0-0); BODY FLUID TOTAL COUNT 100 (0-0)
--- NOTE | 2018-05-20 13:56 | RAD ---
Date of service: 05/20/2018 PROCEDURE: CHEST RADIOGRAPH, 1 VIEW HISTORY: Status post right thoracentesis COMPARISON: 05/18/2018. FINDINGS: LUNGS: Improved aeration of the right lung following thoracentesis. PLEURA: Substantial diminution in right pleural effusion. No pneumothorax identified. CARDIOVASCULAR: No radiographic findings to suggest acute or significant cardiovascular disease. Position/ configuration of pacemaker device: Satisfactory. OSSEOUS STRUCTURES: No significant abnormalities. VISUALIZED UPPER ABDOMEN: Normal. OTHER FINDINGS: Removal of support apparatus since the prior study: Nasogastric tube. IMPRESSION: No adverse findings/pneumothorax following right thoracentesis. Substantial increase in aeration of the right lower lobe.
--- NOTE | 2018-05-20 14:32 | CP.PCM.CON ---
History of Present Illness - History of Present Illness History of Present Illness: Neurology Consultation Note: Mrs. Lentz is an 83-year-old woman with multiple medical co-morbidities, including ESRD, HTN, DM, HLD, advanced dementia, who was admitted for worsening mental status and found to have cellulitis with possible sepsis as well as metabolic and electrolyte derangements. There is concern that she may be having worsening dementia. When I saw the patient, her 4th born son (of 9), was at bedside. He said that she has been improving with her mental status and she is more coherent since having pleural fluid removed and the infection is being treated. Review of Systems - Review of Systems All systems: reviewed and no additional remarkable complaints except Past Patient History - Past Medical History & Family History Past Medical History?: Yes - Past Social History Smoking Status: Never Smoked Alcohol: None Drugs: Denies Home Situation {Lives}: Long Term - CARDIAC Hx Cardiac Disorders: Yes Hx Heart Attack: Yes Hx Hypercholesterolemia: Yes Hx Hypertension: Yes Hx Pacemaker: Yes - PULMONARY Hx Respiratory Disorders: No - NEUROLOGICAL Hx Neurological Disorder: Yes Hx Dementia: Yes Hx Transient Ischemic Attacks (TIA): Yes - HEENT Hx HEENT Problems: No - RENAL Hx Chronic Kidney Disease: Yes Hx Dialysis: Yes Hx Kidney Stones: No - ENDOCRINE/METABOLIC Hx Endocrine Disorders: No Hx Diabetes Mellitus Type 2: Yes - HEMATOLOGICAL/ONCOLOGICAL Hx AIDS: No Hx Human Immunodeficiency Virus (HIV): No - INTEGUMENTARY Hx Dermatological Problems: No - MUSCULOSKELETAL/RHEUMATOLOGICAL Hx Falls: No - GASTROINTESTINAL Hx Gastrointestinal Disorders: Yes Hx Hemorrhoids: Yes - GENITOURINARY/GYNECOLOGICAL Hx Genitourinary Disorders: No - PSYCHIATRIC Hx Substance Use: No - SURGICAL HISTORY Hx Arteriovenous Shunt: Yes (R Arm) Hx Cholecystectomy: Yes - ANESTHESIA Hx Anesthesia: Yes Hx Anesthesia Reactions: No Meds Allergies/Adverse Reactions: Allergies Allergy/AdvReac Type Severity Reaction Status Date / Time moxifloxacin Allergy SHORTNESS Verified 05/14/18 00:01 OF BREATH Penicillins Allergy RASH Verified 05/14/18 00:01 - Medications Medications: Current Medications Acetaminophen (Tylenol 325 Mg Supp) 975 mg HI ONCE PRN PRN Reason: Fever >100.4 F Acetaminophen (Tylenol 650mg/20.3ml Solution Ud) 650 mg PO Q6 PRN PRN Reason: Pain, moderate (4-7) Albuterol/Ipratropium (Duoneb 3 Mg/0.5 Mg (3 Ml) Ud) 3 ml INH RQ6 PRN PRN Reason: Shortness of Breath Last Admin: 05/20/18 07:04 Dose: 3 ml Artificial Tears (Artificial Tears) 1 drop OU Q8H PRN PRN Reason: Dry eyes Atorvastatin Calcium (Lipitor) 10 mg PO HS [facility] Last Admin: 05/19/18 22:30 Dose: Not Given Carvedilol (Coreg) 3.125 mg NG Q12 [facility] Last Admin: 05/20/18 08:59 Dose: Not Given Clonidine HCl (Catapres) 0.2 mg NG Q8H [facility] Last Admin: 05/20/18 04:18 Dose: Not Given Clopidogrel Bisulfate (Plavix) 75 mg PO DAILY [facility] Last Admin: 05/18/18 10:07 Dose: 75 mg Guaifenesin/Dextromethorphan (Robitussin Dm) 5 ml PO QID PRN PRN Reason: Cough and congestion Last Admin: 05/17/18 13:48 Dose: 5 ml Hydralazine HCl (Apresoline) 25 mg NG Q6H [facility] Last Admin: 05/20/18 10:30 Dose: Not Given Cefepime HCl 1 gm/ Sodium (Chloride) 100 mls @ 100 mls/hr IVPB DAILY [facility] PRN Reason: Protocol Last Admin: 05/20/18 09:09 Dose: 100 mls/hr Dextrose/Sodium Chloride (Dextrose 5%/0.9% Ns 1000 Ml) 1,000 mls @ 42 mls/hr IV .[id number] [facility] Stop: 05/20/18 23:51 Last Admin: 05/20/18 00:14 Dose: 42 mls/hr Isosorbide Mononitrate (Imdur) 60 mg PO DAILY [facility] Last Admin: 05/18/18 14:09 Dose: Not Given Lactulose (Enulose) 10 gm PO PRN PRN PRN Reason: Constipation Losartan Potassium (Cozaar) 100 mg NG DAILY [facility] Last Admin: 05/20/18 08:59 Dose: Not Given Metoprolol Tartrate (Lopressor) 2.5 mg IVP Q6 [facility] Last Admin: 05/17/18 16:14 Dose: 2.5 mg Neomycin/Polymyxin/Bacitracin (Bacitracin/Neomycin/Polymyxin Opht Oint) 1 applic OS Q4 [facility] Last Admin: 05/20/18 12:59 Dose: 1 applic Pantoprazole Sodium (Protonix Inj) 40 mg IVP DAILY [facility] Last Admin: 05/20/18 09:10 Dose: 40 mg Tobramycin/Dexamethasone (Tobradex 0.3%-0.1% Opht Oint) 1 appl OU TID [facility] Last Admin: 05/20/18 12:59 Dose: 1 applic Physical Exam - Neurological Exam Neurological exam: Altered, CN II-XII Intact, Reflexes Normal Additional comments: Awake and alert, but not oriented. Does not seem to be verbal, she moves all extremities, follow simple commands. Sensation is intact throughout. Results - Vital Signs Recent Vital Signs: Last Vital Signs Temp 98.6 F 05/20/18 12:16 Pulse 106 H 05/20/18 08:07 Resp 22 05/20/18 12:48 BP 130/82 05/20/18 12:48 Pulse Ox 93 L 05/20/18 12:48 - Labs Result Diagrams: 05/20/18 05:45 05/20/18 05:45 Labs: Laboratory Results - last 24 hr 05/20/18 05/20/18 05/20/18 05:45 05:45 12:35 WBC 4.4 L RBC 3.57 L Hgb 11.0 L Hct 34.5 MCV 96.8 MCH 30.9 MCHC 31.9 L RDW 18.0 H Plt Count 107 L Sodium 138 Potassium 3.7 Chloride 99 Carbon Dioxide 28 Anion Gap 15 BUN 30 H Creatinine 4.5 H Est GFR ( Amer) 11 Est GFR (Non-Af Amer) 9 Random Glucose 142 H Calcium 8.6 Fluid Source Pleural/thoracentesi Fluid Appearance Clear Fluid WBC 73.0 Fluid RBC 640.0 H Fluid Tot Cell Count 100 H Fluid Neutrophils 22.0 H Fluid Lymphocytes 50.0 H Fld Monocyte/Macrophag 28 H Fluid Glucose 142 Fluid LDH Fluid Comment Yellow 05/20/18 12:35 WBC RBC Hgb Hct MCV MCH MCHC RDW Plt Count Sodium Potassium Chloride Carbon Dioxide Anion Gap BUN Creatinine Est GFR ( Amer) Est GFR (Non-Af Amer) Random Glucose Calcium Fluid Source Fluid Appearance Fluid WBC Fluid RBC Fluid Tot Cell Count Fluid Neutrophils Fluid Lymphocytes Fld Monocyte/Macrophag Fluid Glucose Fluid LDH 180 Fluid Comment Assessment & Plan (1) Toxic metabolic encephalopathy Assessment and Plan: Likely due to underlying infection, metabolic derangements and unfamiliar environment in conjunction with underlying dementia. Continue treating underlying cause and the patient should return to baseline. I do not have any other recommendations at this time. Thank you. Status: Acute Priority: Medium
--- NOTE | 2018-05-20 16:03 | CP.PCM.PN ---
Subjective - Date & Time of Evaluation Date of Evaluation: 05/20/18 Time of Evaluation: 14:30 - Subjective Subjective: F/U PNA awake, confused, not following commands Objective - Vital Signs/Intake and Output Vital Signs (last 24 hours): Temp Pulse Resp BP Pulse Ox 98.6 F 106 H 22 130/82 93 L 05/20/18 12:16 05/20/18 08:07 05/20/18 12:48 05/20/18 12:48 05/20/18 12:48 - Medications Medications: Current Medications Acetaminophen (Tylenol 325 Mg Supp) 975 mg [place] ONCE PRN PRN Reason: Fever >100.4 F Acetaminophen (Tylenol 650mg/20.3ml Solution Ud) 650 mg PO Q6 PRN PRN Reason: Pain, moderate (4-7) Albuterol/Ipratropium (Duoneb 3 Mg/0.5 Mg (3 Ml) Ud) 3 ml INH RQ6 PRN PRN Reason: Shortness of Breath Last Admin: 05/20/18 15:04 Dose: 3 ml Artificial Tears (Artificial Tears) 1 drop OU Q8H PRN PRN Reason: Dry eyes Atorvastatin Calcium (Lipitor) 10 mg PO HS [facility] Last Admin: 05/19/18 22:30 Dose: Not Given Carvedilol (Coreg) 3.125 mg NG Q12 [facility] Last Admin: 05/20/18 08:59 Dose: Not Given Clonidine HCl (Catapres) 0.2 mg NG Q8H [facility] Last Admin: 05/20/18 15:19 Dose: Not Given Clopidogrel Bisulfate (Plavix) 75 mg PO DAILY [facility] Last Admin: 05/18/18 10:07 Dose: 75 mg Guaifenesin/Dextromethorphan (Robitussin Dm) 5 ml PO QID PRN PRN Reason: Cough and congestion Last Admin: 05/17/18 13:48 Dose: 5 ml Hydralazine HCl (Apresoline) 25 mg NG Q6H [facility] Last Admin: 05/20/18 10:30 Dose: Not Given Cefepime HCl 1 gm/ Sodium (Chloride) 100 mls @ 100 mls/hr IVPB DAILY [facility] PRN Reason: Protocol Last Admin: 05/20/18 09:09 Dose: 100 mls/hr Dextrose/Sodium Chloride (Dextrose 5%/0.9% Ns 1000 Ml) 1,000 mls @ 42 mls/hr IV .[id number] [facility] Stop: 05/20/18 23:51 Last Admin: 05/20/18 00:14 Dose: 42 mls/hr Isosorbide Mononitrate (Imdur) 60 mg PO DAILY [facility] Last Admin: 05/18/18 14:09 Dose: Not Given Lactulose (Enulose) 10 gm PO PRN PRN PRN Reason: Constipation Losartan Potassium (Cozaar) 100 mg NG DAILY [facility] Last Admin: 05/20/18 08:59 Dose: Not Given Metoprolol Tartrate (Lopressor) 2.5 mg IVP Q6 [facility] Last Admin: 05/17/18 16:14 Dose: 2.5 mg Neomycin/Polymyxin/Bacitracin (Bacitracin/Neomycin/Polymyxin Opht Oint) 1 applic OS Q4 [facility] Last Admin: 05/20/18 12:59 Dose: 1 applic Pantoprazole Sodium (Protonix Inj) 40 mg IVP DAILY [facility] Last Admin: 05/20/18 09:10 Dose: 40 mg Tobramycin/Dexamethasone (Tobradex 0.3%-0.1% Opht Oint) 1 appl OU TID [facility] Last Admin: 05/20/18 12:59 Dose: 1 applic - Labs Labs: 05/20/18 05:45 05/20/18 05:45 PT 12.8 Seconds (9.8-13.1) 05/14/18 01:12 INR 1.2 (0.9-1.2) 05/14/18 01:12 APTT 31.1 Seconds (25.6-37.1) 05/14/18 01:12 - Constitutional Appears: Chronically Ill - Head Exam Head Exam: NORMAL INSPECTION - Eye Exam Eye Exam: PERRL - ENT Exam ENT Exam: Normal Exam - Neck Exam Neck Exam: Normal Inspection - Respiratory Exam Respiratory Exam: Decreased Breath Sounds, Rhonchi - Cardiovascular Exam Cardiovascular Exam: REGULAR RHYTHM Additional comments: PPM - GI/Abdominal Exam GI & Abdominal Exam: Soft, Normal Bowel Sounds - Extremities Exam Additional comments: L arm edema, R arm AVF - Back Exam Back Exam: NORMAL INSPECTION - Neurological Exam Neurological Exam: Awake Additional comments: Not following commands, generalized weakness. - Skin Skin Exam: Warm Assessment and Plan (1) Pneumonia Status: Acute (2) Pleural effusion Status: Acute - Assessment and Plan (Free Text) Plan: Patient to have Thoracentesis by IR, off Plavix 3 days, continue DuoNeb, Cefepime
[2018-05-21] MEDS: Dextrose 5%/0.9% NS 1,000 ML IV SCH (00:12)
[2018-05-21] MEDS: Bacitracin/Neomycin/Polymyxin OPHT OINT OS SCH ×3 (01:21→13:27)
[2018-05-21 08:24] VITALS: BP 152/63; PULSE 78; RESP 20; TEMP 98.1; O2SAT 98
[2018-05-21] MEDS: Cefepime 1 GM in Sodium Chloride 0.9% 100 ML IVPB SCH (09:11)
[2018-05-21] MEDS: Tobramycin/Dexamethasone OPHT OINT OU SCH ×2 (09:12→13:27)
--- NOTE | 2018-05-21 10:06 | US ---
PROCEDURE: Date of procedure: 05/20/2018 Procedure: 1. Ultrasound-guided Right thoracentesis, CPT 80765 Medications: 3cc 1% Lidocaine HISTORY: Right pleural effusion, shortness of breath TECHNIQUE: Following informed consent ,the Patients' right chest was marked. Procedure time-out was called, and the patient was placed in the sitting position and limited ultrasound showed a large right effusion. The patient's right back was prepped and draped in the usual sterile fashion. After the skin was anesthetized with lidocaine, a drainage catheter was advanced under ultrasound guidance into the pleural space. Ultrasound-guided thoracentesis was performed. A total of 560 cubic centimeters of straw-colored fluid removed without complication. A Xeroform dressing was applied. IMPRESSION: Ultrasound guided Right thoracentesis. There were no immediate complications.
[2018-05-21] MEDS: Albuterol-Ipratrop 3 mg / 0.5 (3 ml) UD INH PRN (11:03)
--- NOTE | 2018-05-21 12:13 | CP.PCM.PN ---
Objective - Vital Signs/Intake and Output Vital Signs (last 24 hours): Temp Pulse Resp BP Pulse Ox 98.1 F 78 20 152/63 H 98 05/21/18 08:22 05/21/18 08:22 05/21/18 08:22 05/21/18 08:22 05/21/18 08:22 - Medications Medications: Current Medications Acetaminophen (Tylenol 325 Mg Supp) 975 mg ME ONCE PRN PRN Reason: Fever >100.4 F Acetaminophen (Tylenol 650mg/20.3ml Solution Ud) 650 mg PO Q6 PRN PRN Reason: Pain, moderate (4-7) Albuterol/Ipratropium (Duoneb 3 Mg/0.5 Mg (3 Ml) Ud) 3 ml INH RQ6 PRN PRN Reason: Shortness of Breath Last Admin: 05/21/18 11:03 Dose: 3 ml Artificial Tears (Artificial Tears) 1 drop OU Q8H PRN PRN Reason: Dry eyes Atorvastatin Calcium (Lipitor) 10 mg PO HS [facility] Last Admin: 05/20/18 21:33 Dose: Not Given Carvedilol (Coreg) 3.125 mg NG Q12 [facility] Last Admin: 05/21/18 09:09 Dose: Not Given Clonidine HCl (Catapres) 0.2 mg NG Q8H [facility] Last Admin: 05/21/18 04:52 Dose: Not Given Clopidogrel Bisulfate (Plavix) 75 mg PO DAILY [facility] Last Admin: 05/18/18 10:07 Dose: 75 mg Guaifenesin/Dextromethorphan (Robitussin Dm) 5 ml PO QID PRN PRN Reason: Cough and congestion Last Admin: 05/17/18 13:48 Dose: 5 ml Hydralazine HCl (Apresoline) 25 mg NG Q6H [facility] Last Admin: 05/21/18 04:52 Dose: Not Given Cefepime HCl 1 gm/ Sodium (Chloride) 100 mls @ 100 mls/hr IVPB DAILY [facility] PRN Reason: Protocol Last Admin: 05/21/18 09:11 Dose: 100 mls/hr Isosorbide Mononitrate (Imdur) 60 mg PO DAILY [facility] Last Admin: 05/18/18 14:09 Dose: Not Given Lactulose (Enulose) 10 gm PO PRN PRN PRN Reason: Constipation Losartan Potassium (Cozaar) 100 mg NG DAILY [facility] Last Admin: 05/21/18 09:10 Dose: Not Given Metoprolol Tartrate (Lopressor) 2.5 mg IVP Q6 [facility] Last Admin: 05/17/18 16:14 Dose: 2.5 mg Neomycin/Polymyxin/Bacitracin (Bacitracin/Neomycin/Polymyxin Opht Oint) 1 applic OS Q4 [facility] Last Admin: 05/21/18 09:11 Dose: 1 applic Pantoprazole Sodium (Protonix Inj) 40 mg IVP DAILY [facility] Last Admin: 05/21/18 09:12 Dose: 40 mg Tobramycin/Dexamethasone (Tobradex 0.3%-0.1% Opht Oint) 1 appl OU TID [facility] Last Admin: 05/21/18 09:12 Dose: 1 applic - Labs Labs: 05/20/18 05:45 05/20/18 05:45 PT 12.8 Seconds (9.8-13.1) 05/14/18 01:12 INR 1.2 (0.9-1.2) 05/14/18 01:12 APTT 31.1 Seconds (25.6-37.1) 05/14/18 01:12
--- NOTE | 2018-05-21 13:01 | CP.PCM.PN ---
Subjective - Date & Time of Evaluation Date of Evaluation: 05/21/18 Time of Evaluation: 12:59 - Subjective Subjective: Patient M bed awake and consciousness although not communicating verbalizing. No nausea no vomiting Objective - Vital Signs/Intake and Output Vital Signs (last 24 hours): Temp Pulse Resp BP Pulse Ox 98.1 F 78 20 152/63 H 98 05/21/18 08:22 05/21/18 08:22 05/21/18 08:22 05/21/18 08:22 05/21/18 08:22 - Medications Medications: Current Medications Acetaminophen (Tylenol 325 Mg Supp) 975 mg [place] ONCE PRN PRN Reason: Fever >100.4 F Acetaminophen (Tylenol 650mg/20.3ml Solution Ud) 650 mg PO Q6 PRN PRN Reason: Pain, moderate (4-7) Albuterol/Ipratropium (Duoneb 3 Mg/0.5 Mg (3 Ml) Ud) 3 ml INH RQ6 PRN PRN Reason: Shortness of Breath Last Admin: 05/21/18 11:03 Dose: 3 ml Artificial Tears (Artificial Tears) 1 drop OU Q8H PRN PRN Reason: Dry eyes Atorvastatin Calcium (Lipitor) 10 mg PO HS [facility] Last Admin: 05/20/18 21:33 Dose: Not Given Carvedilol (Coreg) 3.125 mg NG Q12 [facility] Last Admin: 05/21/18 09:09 Dose: Not Given Clonidine HCl (Catapres) 0.2 mg NG Q8H [facility] Last Admin: 05/21/18 04:52 Dose: Not Given Clopidogrel Bisulfate (Plavix) 75 mg PO DAILY [facility] Last Admin: 05/18/18 10:07 Dose: 75 mg Guaifenesin/Dextromethorphan (Robitussin Dm) 5 ml PO QID PRN PRN Reason: Cough and congestion Last Admin: 05/17/18 13:48 Dose: 5 ml Hydralazine HCl (Apresoline) 25 mg NG Q6H [facility] Last Admin: 05/21/18 12:35 Dose: Not Given Cefepime HCl 1 gm/ Sodium (Chloride) 100 mls @ 100 mls/hr IVPB DAILY [facility] PRN Reason: Protocol Last Admin: 05/21/18 09:11 Dose: 100 mls/hr Isosorbide Mononitrate (Imdur) 60 mg PO DAILY [facility] Last Admin: 05/18/18 14:09 Dose: Not Given Lactulose (Enulose) 10 gm PO PRN PRN PRN Reason: Constipation Losartan Potassium (Cozaar) 100 mg NG DAILY [facility] Last Admin: 05/21/18 09:10 Dose: Not Given Metoprolol Tartrate (Lopressor) 2.5 mg IVP Q6 [facility] Last Admin: 05/17/18 16:14 Dose: 2.5 mg Neomycin/Polymyxin/Bacitracin (Bacitracin/Neomycin/Polymyxin Opht Oint) 1 applic OS Q4 [facility] Last Admin: 05/21/18 09:11 Dose: 1 applic Pantoprazole Sodium (Protonix Inj) 40 mg IVP DAILY [facility] Last Admin: 05/21/18 09:12 Dose: 40 mg Tobramycin/Dexamethasone (Tobradex 0.3%-0.1% Opht Oint) 1 appl OU TID [facility] Last Admin: 05/21/18 09:12 Dose: 1 applic - Labs Labs: 05/20/18 05:45 05/20/18 05:45 PT 12.8 Seconds (9.8-13.1) 05/14/18 01:12 INR 1.2 (0.9-1.2) 05/14/18 01:12 APTT 31.1 Seconds (25.6-37.1) 05/14/18 01:12 - Constitutional Appears: No Acute Distress - Eye Exam Eye Exam: Conjunctival injection - ENT Exam ENT Exam: Mucous Membranes Moist - Neck Exam Neck Exam: absent: Lymphadenopathy - Cardiovascular Exam Cardiovascular Exam: absent: JVD, Rubs - GI/Abdominal Exam GI & Abdominal Exam: Soft, Normal Bowel Sounds - Extremities Exam Extremities Exam: absent: Calf Tenderness - Back Exam Back Exam: absent: CVA tenderness (L), CVA tenderness (R) - Neurological Exam Neurological Exam: Altered - Psychiatric Exam Psychiatric exam: Flat Affect - Skin Skin Exam: absent: Cyanosis Assessment and Plan (1) ESRD (end stage renal disease) on dialysis Assessment & Plan: end stage renal disease patient about to receive dialysis shortly as scheduled for TTS Dementia Leukocytosis noted as per primary team although has been improving somewhat. Initial admission with pneumonia follow-up as noted with a pulmonary Status: Acute (2) Fever Status: Acute (3) Pneumonia Status: Acute (4) Sepsis Status: Acute
--- NOTE | 2018-05-21 15:20 | CP.PCM.DIS ---
Provider - Provider Date of Admission: 05/14/18 02:27 Attending physician: Narinder Sahu Primary care physician: Az Mejia MD Consults: Nephrology : Dr Maradiaga ID : DR Workman Neurology: Dr Treviño Pulm: Dr Cordero Time Spent in preparation of Discharge (in minutes): 45 Diagnosis - Discharge Diagnosis (1) Pneumonia Status: Acute Priority: High (2) Cellulitis Status: Acute (3) Dementia Status: Chronic (4) ESRD (end stage renal disease) on dialysis Status: Chronic Priority: High (5) Toxic metabolic encephalopathy Status: Acute (6) HTN (hypertension) Status: Chronic Hospital Course - Lab Results Lab Results: Micro Results 05/20/18 12:35 Body Fluid - Pleural Fluid Gram Stain - Final 05/20/18 12:35 Body Fluid - Pleural Fluid Body Fluid Culture - Preliminary NO GROWTH AFTER 24 HOURS 05/15/18 12:30 Blood-Venous Blood Culture - Final NO GROWTH AFTER 5 DAYS 05/15/18 12:30 Blood-Venous Gram Stain - Final TEST NOT PERFORMED 05/17/18 10:00 Sputum Gram Stain - Final 05/17/18 10:00 Sputum Sputum Culture - Final No growth. 05/14/18 01:42 Blood Blood Culture - Final NO GROWTH AFTER 5 DAYS 05/14/18 01:42 Blood Gram Stain - Final TEST NOT PERFORMED 05/14/18 01:12 Blood Blood Culture - Final NO GROWTH AFTER 5 DAYS 05/14/18 01:12 Blood Gram Stain - Final TEST NOT PERFORMED 05/17/18 15:30 Naris MRSA Culture (Admit) - Final MRSA NOT DETECTED 05/14/18 11:10 Nose MRSA Culture (Admit) - Final MRSA NOT DETECTED Most Recent Lab Values WBC 4.4 K/uL (4.8-10.8) L 05/20/18 05:45 RBC 3.57 Mil/uL (3.80-5.20) L 05/20/18 05:45 Hgb 11.0 g/dL (12.0-16.0) L 05/20/18 05:45 Hct 34.5 % (34.0-47.0) 05/20/18 05:45 MCV 96.8 fl (81.0-99.0) 05/20/18 05:45 MCH 30.9 pg (27.0-31.0) 05/20/18 05:45 MCHC 31.9 g/dL (33.0-37.0) L 05/20/18 05:45 RDW 18.0 % (11.5-14.5) H 05/20/18 05:45 Plt Count 107 K/uL (130-400) L 05/20/18 05:45 MPV 9.2 fl (7.2-11.7) 05/17/18 05:00 Neut % (Auto) 86.8 % (50.0-75.0) H 05/17/18 05:00 Lymph % (Auto) 6.3 % (20.0-40.0) L 05/17/18 05:00 [place] % (Auto) 6.8 % (0.0-10.0) 05/17/18 05:00 Eos % (Auto) 0.0 % (0.0-4.0) 05/17/18 05:00 Baso % (Auto) 0.1 % (0.0-2.0) 05/17/18 05:00 Neut # (Auto) 4.7 K/uL (1.8-7.0) 05/17/18 05:00 Lymph # (Auto) 0.3 K/uL (1.0-4.3) L 05/17/18 05:00 [place] # (Auto) 0.4 K/uL (0.0-0.8) 05/17/18 05:00 Eos # (Auto) 0.0 K/uL (0.0-0.7) 05/17/18 05:00 Baso # (Auto) 0.0 K/uL (0.0-0.2) 05/17/18 05:00 Neutrophils % (Manual) 84 % (42-75) H 05/16/18 05:00 Lymphocytes % (Manual) 6 % (20-50) L 05/16/18 05:00 Monocytes % (Manual) 8 % (0-10) 05/16/18 05:00 Eosinophils % (Manual) 2 % (0-7) 05/16/18 05:00 Platelet Estimate Decreased (NORMAL) L 05/16/18 05:00 Hypochromasia (manual) Slight 05/16/18 05:00 Anisocytosis (manual) Slight 05/16/18 05:00 Target Cells Slight 05/16/18 05:00 Tear Drop Cells Slight 05/16/18 05:00 Ovalocytes Slight 05/16/18 05:00 PT 12.8 Seconds (9.8-13.1) 05/14/18 01:12 INR 1.2 (0.9-1.2) 05/14/18 01:12 APTT 31.1 Seconds (25.6-37.1) 05/14/18 01:12 pCO2 44 mm/Hg (35-45) 05/14/18 02:15 pO2 46 mm/Hg (30-55) 05/14/18 05:42 HCO3 27.1 mmol/L (21-28) 05/14/18 02:15 ABG pH 7.41 (7.35-7.45) 05/14/18 02:15 ABG Total CO2 29.3 mmol/L (22-28) H 05/14/18 02:15 ABG O2 Saturation 99.5 % (95-98) H 05/14/18 02:15 ABG Base Excess 2.7 mmol/L (-2.0-3.0) 05/14/18 02:15 Willie Test Yes 05/14/18 02:15 ABG Potassium 3.7 mmol/L (3.6-5.2) 05/14/18 02:15 VBG pH 7.39 (7.32-7.43) 05/14/18 05:42 VBG pCO2 49 mmHg (40-60) 05/14/18 05:42 VBG HCO3 27.4 mmol/L 05/14/18 05:42 VBG Total CO2 31.2 mmol/L (22-28) H 05/14/18 05:42 VBG O2 Sat (Calc) 84.3 % (40-65) H 05/14/18 05:42 VBG Base Excess 3.7 mmol/L (0.0-2.0) H 05/14/18 05:42 VBG Potassium 4.4 mmol/L (3.6-5.2) 05/14/18 05:42 A-a O2 Difference 193.0 mm/Hg 05/14/18 02:15 Sodium 133.0 mmol/L (132-148) 05/14/18 05:42 Chloride 98.0 mmol/L (98-107) 05/14/18 05:42 Glucose 131 mg/dL (65-105) H 05/14/18 05:42 Lactate 0.8 mmol/L (0.7-2.1) 05/14/18 05:42 Mechanical Rate 14 05/14/18 02:15 FiO2 60.0 % 05/14/18 05:42 Inspiratory BiPAP 12 05/14/18 02:15 Expiratory BiPAP 6 05/14/18 05:42 Sodium 138 mmol/l (132-148) 05/20/18 05:45 Potassium 3.7 MMOL/L (3.6-5.0) 05/20/18 05:45 Chloride 99 mmol/L (98-107) 05/20/18 05:45 Carbon Dioxide 28 mmol/L (22-30) 05/20/18 05:45 Anion Gap 15 (10-20) 05/20/18 05:45 BUN 30 mg/dl (7-17) H 05/20/18 05:45 Creatinine 4.5 mg/dl (0.7-1.2) H 05/20/18 05:45 Est GFR ( Amer) 11 05/20/18 05:45 Est GFR (Non-Af Amer) 9 05/20/18 05:45 Random Glucose 142 mg/dL (65-105) H 05/20/18 05:45 Calcium 8.6 mg/dL (8.4-10.2) 05/20/18 05:45 Phosphorus 2.4 mg/dl (2.5-4.5) L 05/14/18 01:12 Magnesium 2.3 MG/DL (1.6-2.3) 05/14/18 01:12 Total Bilirubin 0.8 mg/dl (0.2-1.3) 05/16/18 05:00 AST 43 U/L (14-36) H D 05/16/18 05:00 ALT 34 U/L (9-52) 05/16/18 05:00 Alkaline Phosphatase 120 U/L (38-126) 05/16/18 05:00 Troponin I 0.0250 ng/mL (0.00-0.120) 05/14/18 06:45 NT-Pro-B Natriuret Pep 42933 pg/ml (0-900) H 05/14/18 06:45 Total Protein 5.8 G/DL (6.3-8.2) L 05/16/18 05:00 Albumin 2.9 g/dL (3.5-5.0) L 05/16/18 05:00 Globulin 2.8 gm/dL (2.2-3.9) 05/16/18 05:00 Albumin/Globulin Ratio 1.0 (1.0-2.1) 05/16/18 05:00 Procalcitonin 0.37 NG/ML (0.19-0.49) 05/14/18 11:30 Arterial Blood Potassium 3.7 mmol/L (3.6-5.2) 05/14/18 02:15 Venous Blood Potassium 4.4 mmol/L (3.6-5.2) 05/14/18 05:42 Fluid Source Pleural/thoracentesi 05/20/18 12:35 Fluid Appearance Clear (CLEAR) 05/20/18 12:35 Fluid WBC 73.0 /mm3 (0.0-300.0) 05/20/18 12:35 Fluid RBC 640.0 /mm3 (0.0-0.0) H 05/20/18 12:35 Fluid Tot Cell Count 100 (0-0) H 05/20/18 12:35 Fluid Neutrophils 22.0 % (0-0) H 05/20/18 12:35 Fluid Lymphocytes 50.0 % (0-0) H 05/20/18 12:35 Fld Monocyte/Macrophag 28 % (0-0) H 05/20/18 12:35 Fluid Glucose 142 mg/dL (NONE ESTABLISHED) 05/20/18 12:35 Fluid LDH 180 IU (NONE ESTABLISHED) 05/20/18 12:35 Fluid Comment Yellow 05/20/18 12:35 Vancomycin Trough 28.3 ug/mL (5.0-10.0) H 05/17/18 05:00 Hep Bs Antigen Negative (NEGATIVE) 05/14/18 18:46 Hep Bs Antibody Indeterminate (NEGATIVE) 05/14/18 18:46 Hep B Core IgM Ab Negative (NEGATIVE) 05/14/18 18:46 Hepatitis C Antibody Negative (NEGATIVE) 05/14/18 18:46 Mycoplasma pneumon IgG 2.93 (<=0.90) H 05/14/18 18:46 Mycoplasma pneumon IgM 86 U/mL (<770) 05/14/18 18:46 - Hospital Course Hospital Course: 83 years old female residing at the [facility] with hx of HTN, CAD, Dementia and ESRD was sent in bec of change in mental status more demented than normal, with poor appetite along with swelling, of the left upper extremity. Pt has also been coughing She was started on IV antibiotics for Pneumonia and UE Cellulitis. Pulmonary was consulted for the cough/Pneumonia. Hemodialysis 3x per week continued. Patient's worsening dementia persisted . CT of the chest showed large pleural effusion - Thoracentesis done. Cough persisted - Speech consulted for swallow eval - pt failed multiple times - so pt was placed on NPO , family refused NGT nor PEG. On 05/21 - patient's son Joesph who is her POA and verbalized wanting Hospice Care for his mother. He stated that the whole family had a discussion and felt that their mother would not want to be in this condition. Hospice Care consulted - came to speak with the family . Patient was accepted . Will d/c pt to Inpatient Hospice. 1. Pneumonia , HAP prob bacterial possible aspiration Pneumonia Sepsis ruled out - considering aspiration pneumonia given patient's dysphagia - received IV vanco and Cefepime, dose Vanco each HD - Blood c/s: neg so far - ID and Pulm consulted 2. AMS due to Metabolic encephalopathy, worsening dementia - Hemodialysis - Treated infection - Neuro consulted 3. Large Pleural Effusion secondary to volume overload due to Renal Failure s/ p Thoracentesis - Hemodialysis - pt received of Lasix - R side thoracentesis - done by IR 660 ml of pleural fluid obtained 4. A Fib with RVR - Consulted Dr Delgado cardiology- discussed case - rec to do CTA to r/o PE given elevated RV pressures -CTA Pulm : suboptimal study but no central/large PE - Cardiac monitoring - started low dose Coreg for rate control 5. Left upper extremity swelling , mild Cellulitis - Duplex US of left upper extremity: negative for DVT - ? lymphedema ( previous site of AV shunt???) - cont IV Vanco - fistulogram for eval of stenosis 6. Anasarca due to the renal failure - Hemodialysis 7. ESRD On HD - consulted Dr Edwards Customer Supply Chain Analyst for Hemodialysis TIW 8. HTN was on Imdur and Losartan, Hydralazine while pt is NPO startedLopressor IV 9. Aortic Stenosis ECHO: EF=40-45% , severe , mod to severe TR and Calcified aortic valve - Cardio consulted #. DVT with subQ heparin #. Code Status:DNR/DNI Discharge Exam - Head Exam Head Exam: NORMAL INSPECTION, NORMOCEPHALIC - ENT Exam ENT Exam: Mucous Membranes Dry, Normal External Ear Exam - Neck Exam Neck exam: Full Rom - Respiratory Exam Respiratory Exam: Rales, Rhonchi. absent: Respiratory Distress - Cardiovascular Exam Cardiovascular Exam: REGULAR RHYTHM, +S1, +S2 - GI/Abdominal Exam GI & Abdominal Exam: Normal Bowel Sounds, Soft. absent: Tenderness - Extremities Exam Extremities exam: normal capillary refill - Neurological Exam Additional comments: disoriented lethargic - Psychiatric Exam Psychiatric exam: Flat Affect - Skin Skin Exam: Dry, Pallor, Warm Discharge Plan - Follow Up Plan Condition: SERIOUS Disposition: HOSPICE - MEDICAL FACILITY Referrals: Az Mejia MD [Primary Care Provider] -
--- NOTE | 2018-05-21 15:30 | CP.PCM.PN ---
Subjective - Date & Time of Evaluation Date of Evaluation: 05/21/18 - Subjective Subjective: F/U PNA awake,non verbal, not following commands, had R Thoracentesis Objective - Vital Signs/Intake and Output Vital Signs (last 24 hours): Temp Pulse Resp BP Pulse Ox 98.1 F 78 20 152/63 H 98 05/21/18 08:22 05/21/18 08:22 05/21/18 08:22 05/21/18 08:22 05/21/18 08:22 - Labs Labs: 05/20/18 05:45 05/20/18 05:45 PT 12.8 Seconds (9.8-13.1) 05/14/18 01:12 INR 1.2 (0.9-1.2) 05/14/18 01:12 APTT 31.1 Seconds (25.6-37.1) 05/14/18 01:12 - Constitutional Appears: Chronically Ill - Head Exam Head Exam: NORMAL INSPECTION - Eye Exam Eye Exam: PERRL - ENT Exam ENT Exam: Normal Exam - Neck Exam Neck Exam: Normal Inspection - Respiratory Exam Respiratory Exam: Decreased Breath Sounds, Rhonchi (scattered) Additional comments: R chest wall dressing in the area of thoracentesis - Cardiovascular Exam Cardiovascular Exam: REGULAR RHYTHM Additional comments: PPM - GI/Abdominal Exam GI & Abdominal Exam: Soft, Normal Bowel Sounds - Extremities Exam Additional comments: L arm edema, R arm AVF - Back Exam Back Exam: NORMAL INSPECTION - Neurological Exam Neurological Exam: Awake Additional comments: Not following commands, generalized weakness - Skin Skin Exam: Warm Assessment and Plan (1) Pneumonia Status: Acute (2) Pleural effusion Status: Acute - Assessment and Plan (Free Text) Plan: s/p R Thoracentesis, Patient' family do not want to have L Thoracentesis , They will have a meeting with Hospice today
== END 2018-05-21 15:27 | disposition hospice, inpatient (51) | DRG 70 ==
LOC: H.ER 23:13 → H.ERHOLD 05-14 02:27 → H.ICU/CCU 05-14 09:59 → H.MEDSURG1 05-17 17:10
PROVIDERS: ADMIT Internal Medicine; ATTEND Internal Medicine
PROC: 5A1D70Z Performance of Urinary Filtration, Intermittent, Less than 6 Hours Per Day (ICD-10-PCS; 2018-05-14)
PROC: 06HM33Z Insertion of Infusion Device into Right Femoral Vein, Percutaneous Approach (ICD-10-PCS; 2018-05-15)
PROC: 5A1D70Z Performance of Urinary Filtration, Intermittent, Less than 6 Hours Per Day (ICD-10-PCS; 2018-05-16)
PROC: 5A1D70Z Performance of Urinary Filtration, Intermittent, Less than 6 Hours Per Day (ICD-10-PCS; 2018-05-18)
PROC: 0W993ZZ Drainage of Right Pleural Cavity, Percutaneous Approach (ICD-10-PCS; principal; 2018-05-20)
DX: G93.41 Metabolic encephalopathy (principal); J15.9 Unspecified bacterial pneumonia; N18.6 End stage renal disease; J69.0 Pneumonitis due to inhalation of food and vomit; J98.11 Atelectasis; L03.114 Cellulitis of left upper limb; I13.2 Hypertensive heart and chronic kidney disease with heart failure and with stage 5 chronic kidney disease, or end stage renal disease; Z66 Do not resuscitate; Z74.01 Bed confinement status; Z78.1 Physical restraint status; Z79.02 Long term (current) use of antithrombotics/antiplatelets; Z79.82 Long term (current) use of aspirin; I69.391 Dysphagia following cerebral infarction; D63.1 Anemia in chronic kidney disease; E04.1 Nontoxic single thyroid nodule; E11.22 Type 2 diabetes mellitus with diabetic chronic kidney disease; E78.00 Pure hypercholesterolemia, unspecified; E78.5 Hyperlipidemia, unspecified; F03.90 Unspecified dementia, unspecified severity, without behavioral disturbance, psychotic disturbance, mood disturbance, and anxiety; I25.10 Atherosclerotic heart disease of native coronary artery without angina pectoris; I25.2 Old myocardial infarction; I35.0 Nonrheumatic aortic (valve) stenosis; I45.10 Unspecified right bundle-branch block; I48.91 Unspecified atrial fibrillation; I50.9 Heart failure, unspecified; Z90.49 Acquired absence of other specified parts of digestive tract; Z95.0 Presence of cardiac pacemaker; Z99.2 Dependence on renal dialysis; K64.9 Unspecified hemorrhoids; Z79.899 Other long term (current) drug therapy; R00.0 Tachycardia, unspecified; R06.03 Acute respiratory distress; R26.81 Unsteadiness on feet

== ENCOUNTER 2018-05-21 15:25 | Inpatient (IN) | payer OTHER ==
[2018-05-21 15:37] VITALS: BMI 21.8
[2018-05-21] MEDS ORDERED: Morphine 100 MG in Sodium Chloride 0.9% 100 ML IV SCH (15:45)
--- NOTE | 2018-05-22 07:56 | CP.PCM.HP ---
History of Present Illness - History of Present Illness History of Present Illness: Chief Complaint: admitted for inpatient Hospice. HPI: 83 years old female residing at the [facility] with hx of HTN, CAD, Dementia and ESRD was initially admitted bec of change in mental status . She was noted to be more demented than her baseline , with poor appetite along with swelling, of the left upper extremity. Pt has also been coughing. She was admitted and started on IV antibiotics for Pneumonia and UE Cellulitis. Pulmonary was consulted for the cough/Pneumonia. Hemodialysis 3x per week continued. Patient's worsening dementia persisted . CT of the chest showed large pleural effusion - Thoracentesis done. Speech consulted for swallow eval as Aspiration Pneumonia was suspected and patient failed multiple times - so pt was placed on NPO , family refused NGT nor PEG. Patient's family , son Joesph who is her POA and verbalized wanting Hospice Care for his mother. He stated that the whole family had a discussion and felt that their mother would not want to be in this condition. Family does not want any further Hemodialysis. Hospice Care consulted , patient d/c to Inpatient Hospice. PMH: CAD, Dementia, HTN, HLD; End Stage Renal Disease on HD MWF; TIA, Falls, hemorrhoides PSH: Cholecystectomy, Pacemaker, AV fistula right forearm SH: Nonsmoker, No illegal drug use; No Alcohol; reside at the [facility] FH: Unknown Family Hx Allergies: PCN causes rash; Moxifloxacin causes SOB Present on Admission - Present on Admission Any Indicators Present on Admission: No Review of Systems - Review of Systems Systems not reviewed;Unavailable: Altered Mental Status Past Patient History - Infectious Disease Hx of Infectious Diseases: None - Tetanus Immunizations Tetanus Immunization: Unknown - Past Medical History & Family History Past Medical History?: Yes Past Family History: Reviewed and not pertinent - Past Social History Smoking Status: Never Smoked - CARDIAC Hx Cardiac Disorders: Yes Hx Heart Attack: Yes Hx Hypercholesterolemia: Yes Hx Hypertension: Yes Hx Pacemaker: Yes - PULMONARY Hx Respiratory Disorders: No - NEUROLOGICAL Hx Neurological Disorder: Yes Hx Dementia: Yes Hx Transient Ischemic Attacks (TIA): Yes - HEENT Hx HEENT Problems: No - RENAL Hx Chronic Kidney Disease: Yes Hx Dialysis: Yes Hx Kidney Stones: No - ENDOCRINE/METABOLIC Hx Endocrine Disorders: No Hx Diabetes Mellitus Type 2: Yes - HEMATOLOGICAL/ONCOLOGICAL Hx AIDS: No Hx Human Immunodeficiency Virus (HIV): No - INTEGUMENTARY Hx Dermatological Problems: No - MUSCULOSKELETAL/RHEUMATOLOGICAL Hx Falls: No - GASTROINTESTINAL Hx Gastrointestinal Disorders: Yes Hx Hemorrhoids: Yes - GENITOURINARY/GYNECOLOGICAL Hx Genitourinary Disorders: No - PSYCHIATRIC Hx Substance Use: No - SURGICAL HISTORY Hx Arteriovenous Shunt: Yes (R Arm) Hx Cholecystectomy: Yes - ANESTHESIA Hx Anesthesia: Yes Hx Anesthesia Reactions: No Meds Allergies/Adverse Reactions: Allergies Allergy/AdvReac Type Severity Reaction Status Date / Time moxifloxacin Allergy SHORTNESS Verified 05/14/18 00:01 OF BREATH Penicillins Allergy RASH Verified 05/14/18 00:01 Physical Exam - Constitutional Appears: Toxic, Confused, Chronically Ill - Head Exam Head Exam: NORMAL INSPECTION, NORMOCEPHALIC - ENT Exam ENT Exam: Mucous Membranes Dry, Normal External Ear Exam - Respiratory Exam Respiratory Exam: Accessory Muscle Use, Rales, Rhonchi - Cardiovascular Exam Cardiovascular Exam: REGULAR RHYTHM, +S1, +S2 - GI/Abdominal Exam GI & Abdominal Exam: Soft. absent: Tenderness - Neurological Exam Neurological exam: Altered Additional comments: lethargic - Psychiatric Exam Psychiatric exam: Flat Affect - Skin Skin Exam: Dry, Pallor Results - Vital Signs Recent Vital Signs: Last Vital Signs Temp 97.8 F 05/22/18 00:00 Pulse 84 05/22/18 00:00 Resp 20 05/22/18 00:00 BP 129/68 05/22/18 00:00 Pulse Ox 99 05/22/18 00:00 Assessment & Plan - Assessment and Plan (Free Text) Assessment: 1. Pneumonia , HAP prob bacterial possible aspiration Pneumonia 2. AMS due to Metabolic encephalopathy, worsening dementia 3. Severe Dementia 4. Large Pleural Effusion secondary to volume overload due to Renal Failure s/ p Thoracentesis 5. A Fib with RVR 6. Left upper extremity Cellulitis 7. Anasarca due to the renal failure 8. ESRD On HD 9. 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 Dysphagia Plan: Hospice Care - keep pt comfortable - Morphine drip for pain -Ativan for anxiety - Levsin Decision To Admit - Pt Status Changed To: Hospital Disposition Of: Inpatient - Admit Certification Admit to Inpatient:: After my assessment, the patient will require hospitalization for at least two midnights. This is because of the severity of symptoms shown, intensity of services needed, and/or the medical risk in this patient being treated as an outpatient. - . Bed Request Type: Inpatient Hospice Admitting Physician: Laura Doran
[2018-05-22] MEDS: Hyoscyamine 0.125 mg SL Tab SL PRN (11:30)
[2018-05-22] MEDS: Morphine 100 MG in Sodium Chloride 0.9% 100 ML IV SCH (11:57)
[2018-05-23] MEDS: Hyoscyamine 0.125 mg SL Tab SL PRN ×3 (08:41→16:04)
--- NOTE | 2018-05-23 12:03 | CP.PCM.PN ---
Subjective - Date & Time of Evaluation Date of Evaluation: 05/23/18 Time of Evaluation: 11:30 - Subjective Subjective: Pt looks comfortable however noted increase gurgling sound from secretions in oral cavity - Levsin increased Family at bedside. Objective - Vital Signs/Intake and Output Vital Signs (last 24 hours): Temp Pulse Resp BP Pulse Ox 98.3 F 134 H 16 159/83 H 96 05/23/18 08:37 05/23/18 08:37 05/23/18 08:37 05/23/18 08:37 05/23/18 08:37 - Medications Medications: Current Medications Hyoscyamine (Levsin) 0.125 mg SL Q6 PRN PRN Reason: GI distress Last Admin: 05/23/18 08:41 Dose: 0.125 mg Morphine Sulfate 100 mg/ (Sodium Chloride) 104 mls @ 1.04 mls/hr IV .Q24H KRIS; 1 MG/HR PRN Reason: Protocol Last Admin: 05/22/18 11:57 Dose: 1 mg/hr, 1.04 mls/hr Lorazepam (Ativan) 1 mg IVP Q3 PRN PRN Reason: Agitation Last Admin: 05/22/18 14:00 Dose: 1 mg - Constitutional Appears: No Acute Distress, Chronically Ill - Head Exam Head Exam: NORMAL INSPECTION, NORMOCEPHALIC - ENT Exam ENT Exam: Mucous Membranes Dry, Normal External Ear Exam - Respiratory Exam Respiratory Exam: Accessory Muscle Use, Rales, Rhonchi - Cardiovascular Exam Cardiovascular Exam: Irregular Rhythm, +S1, +S2 - GI/Abdominal Exam GI & Abdominal Exam: Soft - Extremities Exam Extremities Exam: Pedal Edema - Neurological Exam Additional comments: lethargic Assessment and Plan - Assessment and Plan (Free Text) Assessment: 83 y/o [place] resident , with hx of Dementia , ESRD on Hemodialysis, Severe Aortic Stenosis, Atrial Fibrillation, admitted for worsening dementia, Dysphagia, Pneumonia , Pleural Effusion and Cellulitis. Family decided on Hospice Care . Currently In-patient Hospice for Comfort care. 1. Pneumonia , HAP prob bacterial possible aspiration Pneumonia 2. AMS due to Metabolic encephalopathy, worsening dementia 3. Severe Dementia 4. Large Pleural Effusion secondary to volume overload due to Renal Failure s/ p Thoracentesis 5. A Fib with RVR 6. Left upper extremity Cellulitis 7. Anasarca due to the renal failure 8. ESRD On HD 9. 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 Dysphagia Plan: Hospice Care - keep pt comfortable - Morphine drip for pain -Ativan for anxiety - increase Levsin to q 4
[2018-05-23] MEDS ORDERED: Hyoscyamine 0.125 mg SL Tab SL PRN (16:02)
[2018-05-23] MEDS ORDERED: Morphine 100 MG in Sodium Chloride 0.9% 100 ML IV SCH (16:02)
[2018-05-23 16:21] VITALS: BP 133/57; PULSE 148; TEMP 98.6; O2SAT 99
[2018-05-23 16:25] VITALS: RESP 16
[2018-05-23] MEDS: Morphine 100 MG in Sodium Chloride 0.9% 100 ML IV SCH (16:46)
--- NOTE | 2018-05-24 00:06 | CP.PCM.PRO ---
Pronouncement of Note - Clinical Findings Physical Exam: No Response Verbal/Painful Stimuli, Absent Peripheral Pulses{ Carotid & Femoral}, Absent Heart & Breath Sounds, No Pupillary Light Reflex, No Corneal Reflex, Pupils Fixed & Dilated, Absence of Vital Signs - Notifications Pronouncement Notifications: Family Notified, Atending Notified - N.Nadege Certificate [place] Number: [id number]
--- NOTE | 2018-05-24 06:22 | CP.PCM.DIS ---
Provider - Provider Date of Admission: 05/21/18 15:37 Attending physician: Laura Doran MD Primary care physician: Az Mejia MD Time Spent in preparation of Discharge (in minutes): 15 Hospital Course - Hospital Course Hospital Course: 83 y/o [place] resident , with hx of Dementia , ESRD on Hemodialysis, Severe Aortic Stenosis, Atrial Fibrillation, admitted for worsening dementia, Dysphagia, Pneumonia , Pleural Effusion and Cellulitis. Family decided on Hospice Care . Currently In-patient Hospice for Comfort care. 1. Pneumonia , HAP prob bacterial possible aspiration Pneumonia 2. AMS due to Metabolic encephalopathy, worsening dementia 3. Severe Dementia 4. Large Pleural Effusion secondary to volume overload due to Renal Failure s/ p Thoracentesis 5. A Fib with RVR 6. Left upper extremity Cellulitis 7. Anasarca due to the renal failure 8. ESRD On HD 9. 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 Dysphagia Patient on 05/23/2018 at 11:25 pm. Please see pronouncement note for details Family at bedside at time of . Discharge Exam - Head Exam Head Exam: NORMAL INSPECTION, NORMOCEPHALIC - Additional Findings Additional findings: pt , see note for pronouncement physical examination. Discharge Plan - Follow Up Plan Condition: Disposition: WITH WITHOUT AUTOPSY Referrals: Az Mejia MD [Primary Care Provider] -
== END 2018-05-24 02:18 | DRG 193 ==
LOC: H.MEDSURG1 15:37
PROVIDERS: ADMIT Internal Medicine; ATTEND Internal Medicine
DX: J15.9 Unspecified bacterial pneumonia (principal); G93.41 Metabolic encephalopathy; N18.6 End stage renal disease; J90 Pleural effusion, not elsewhere classified; I12.0 Hypertensive chronic kidney disease with stage 5 chronic kidney disease or end stage renal disease; L03.114 Cellulitis of left upper limb; Z51.5 Encounter for palliative care; I35.0 Nonrheumatic aortic (valve) stenosis; I48.91 Unspecified atrial fibrillation; E87.70 Fluid overload, unspecified; E11.22 Type 2 diabetes mellitus with diabetic chronic kidney disease; F02.80 Dementia in other diseases classified elsewhere, unspecified severity, without behavioral disturbance, psychotic disturbance, mood disturbance, and anxiety; G30.9 Alzheimer's disease, unspecified; I25.10 Atherosclerotic heart disease of native coronary artery without angina pectoris; E78.5 Hyperlipidemia, unspecified; E78.00 Pure hypercholesterolemia, unspecified; I69.391 Dysphagia following cerebral infarction; R13.10 Dysphagia, unspecified; I25.2 Old myocardial infarction; Y95 Nosocomial condition; Z95.0 Presence of cardiac pacemaker; Z99.2 Dependence on renal dialysis; Z88.0 Allergy status to penicillin; Z88.1 Allergy status to other antibiotic agents